=== PATIENT | male | born 1975 ===

== ENCOUNTER 2017-08-03 11:57 | Emergency (ER) | payer OTHER ==
--- NOTE | 2017-08-03 12:37 | ED PDOC ---
Arrival/HPI - General Chief Complaint: Abnormal Skin Integrity Time Seen by Provider: 08/03/17 12:01 Historian: Patient, Spouse - History of Present Illness Time/Duration: Other (2 days) Symptom Onset: Gradual Symptom Course: Worsening Severity Level: Moderate Activities at Onset: Rest Associated Symptoms (Text): 08/03/17 12:34 Patient complains of a 2 day history of a left medial buttocks abscess and 2 smaller right buttocks abscesses. No fever or chills. The larger left buttocks abscess is not ready for incision and drainage. I instructed the patient to do warm sitz bath's we will treat him with antibiotics and pain medicine and he will return to the emergency Department in 2 days to see if the abscess has ripened and then is ready for incision and drainage. Past Medical History - Psychiatric Hx Substance Use: No - Surgical History Other/Comment: Left leg vascular Sx Family/Social History - Physician Review Nursing Documentation Reviewed: Yes Family/Social History: Unknown Family HX Smoking Status: Current Some Days Smoker Hx Alcohol Use: No Hx Substance Use: No Allergies/Home Meds Allergies/Adverse Reactions: Allergies aspirin Allergy (Verified 08/03/17 12:24) ANAPHYLAXIS peanut Allergy (Verified 08/03/17 12:24) ANAPHYLAXIS Review of Systems - Physician Review All systems were reviewed & negative as marked: Yes Physical Exam Vital Signs Temp Pulse Resp BP Pulse Ox 08/03/17 13:03 98.6 F 72 29 H 129/79 99 08/03/17 12:22 97.8 F 77 18 119/67 97 Temperature: Afebrile Blood Pressure: Normal Pulse: Regular Respiratory Rate: Normal Appearance: Positive for: Well-Appearing, Non-Toxic, Comfortable, Uncomfortable Pain Distress: Mild Mental Status: Positive for: Alert and Oriented X 3 - Systems Exam Lower Extremity: Present: Normal Inspection. No: Edema Skin: Present: Warm, Dry, Normal Color, Abscess (Large left medial buttocks abscess not ready for incision and drainage. 2 small right buttocks abscesses.) . No: Rashes Disposition/Present on Arrival - Present on Arrival Any Indicators Present on Arrival: No History of DVT/PE: No History of Uncontrolled Diabetes: No Urinary Catheter: No History of Decub. Ulcer: No History Surgical Site Infection Following: None - Disposition Have Diagnosis and Disposition been Completed?: Yes Diagnosis: Cutaneous abscess of buttock Disposition: HOME/ ROUTINE Disposition Time: 12:37 Patient Plan: Discharge Condition: GOOD Discharge Instructions (ExitCare): Boil Additional Instructions: Sitz baths. Return to the emergency Department in 2 days for possible incision and drainage. Prescriptions: Amoxicillin/Clavulanate [Augmentin 875 MG-125 MG] 1 tab PO Q12 #20 tab Sulfamethoxazole/Trimethoprim [Bactrim DS 800 mg-160 mg] 1 tab PO BID #20 tab oxyCODONE/Acetaminophen [Percocet 5/325 mg Tab] 1 ea PO Q6 #15 tab Forms: [facility] (Congolese), WORK NOTE
[2017-08-03 13:04] VITALS: BP 129/79; PULSE 72; RESP 29; TEMP 98.6; O2SAT 99
== END 2017-08-03 13:03 | disposition home or self-care (01) ==
LOC: ED 11:57 → MERGE 11:57 → ED 13:03
DX: L02.31 Cutaneous abscess of buttock (principal)

== ENCOUNTER 2017-09-09 13:21 | Emergency (ER) | payer OTHER ==
[2017-09-09 13:36] VITALS: RESP 18; TEMP 98.7
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
[2017-09-09 17:23] VITALS: BP 132/78; PULSE 78; O2SAT 98
== END 2017-09-09 17:23 | disposition home or self-care (01) ==
LOC: ED 13:21
DX: S00.93XA Contusion of unspecified part of head, initial encounter (principal); S80.00XA Contusion of unspecified knee, initial encounter; V49.9XXA Car occupant (driver) (passenger) injured in unspecified traffic accident, initial encounter; F17.210 Nicotine dependence, cigarettes, uncomplicated

== ENCOUNTER 2017-10-11 23:01 | Emergency (ER) | payer OTHER ==
[2017-10-11 23:07] VITALS: BMI 35.6
[2017-10-11 23:28] VITALS: PULSE 72; RESP 16; O2SAT 98
--- NOTE | 2017-10-11 23:35 | ED PDOC ---
Arrival/HPI - General Chief Complaint: Chest Pain Time Seen by Provider: 10/11/17 23:26 Historian: Patient - History of Present Illness Narrative History of Present Illness (Text): 10/11/17 23:30 A 42 year old male, whose past medical history includes bipolar type 1, presents to the emergency department complaining of chest pain, diaphoresis, shortness of breath and multiple areas of macules in various stages of healing on right hip. Patient reports he has episodes when he is angry or anxhoius and is experiencing dizzyness and fatigue. Patient notes he is no longer seeing a psychiatrist and has stoppped taking any medications. Patient denies any fever, chills, nausea, vomiting, diarrhea, urinary symptoms, back pain, neck pain, headache, or any other complaints. PMD: Dr. Heart Time/Duration: Other (2 days ) Symptom Onset: Gradual Symptom Course: Unchanged Context: Home Past Medical History - Provider Review Nursing Documentation Reviewed: Yes - Cardiac Hx Cardiac Disorders: Yes Hx Hypertension: No - Pulmonary Hx Tuberculosis: No - Neurological Hx Seizures: No - Renal Hx Renal Disorder: No - Endocrine/Metabolic Hx Endocrine Disorders: No - Hematological/Oncological Hx Cancer: No - Integumentary Hx Dermatological Disorder: No - Musculoskeletal/Rheumatological Hx Falls: No - Genitourinary/Gynecological Hx Sexually Transmitted Diseases: No - Psychiatric Hx Bipolar Disorder: Yes Hx Depression: Yes Hx Substance Use: Yes (opioids) - Surgical History Other/Comment: 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 ago - Anesthesia Hx Anesthesia: Yes Hx Anesthesia Reactions: No Family/Social History - Physician Review Nursing Documentation Reviewed: Yes Family/Social History: Unknown Family HX Smoking Status: Light Smoker < 10 Cigarettes Daily Hx Alcohol Use: No Hx Substance Use: Yes (opioids) Substance used: heroin Allergies/Home Meds Allergies/Adverse Reactions: Allergies egg Allergy (Verified 10/11/17 23:08) RASH peanut Allergy (Verified 10/11/17 23:08) RASH Review of Systems - Physician Review All systems were reviewed & negative as marked: Yes - Review of Systems Constitutional: Fatigue. absent: Fevers, Night Sweats Respiratory: SOB Cardiovascular: Chest Pain Gastrointestinal: absent: Diarrhea, Nausea, Vomiting Genitourinary Male: absent: Urinary Output Changes Musculoskeletal: absent: Back Pain, Neck Pain Skin: Other (macules in various stages of healing on right hip) Neurological: absent: Headache, Dizziness Endocrine: Diaphoresis Physical Exam Vital Signs Reviewed: Yes Vital Signs Temp Pulse Resp BP Pulse Ox 10/11/17 23:28 98.2 F 72 16 139/78 98 Temperature: Afebrile Blood Pressure: Normal Pulse: Regular Respiratory Rate: Normal Appearance: Positive for: Well-Appearing, Non-Toxic, Comfortable Pain Distress: None Mental Status: Positive for: Alert and Oriented X 3 - Systems Exam Head: Present: Atraumatic, Normocephalic Pupils: Present: PERRL Extroacular Muscles: Present: EOMI Conjunctiva: Present: Normal Mouth: Present: Moist Mucous Membranes Neck: Present: Normal Range of Motion Respiratory/Chest: Present: Clear to Auscultation, Good Air Exchange. No: Respiratory Distress, Accessory Muscle Use Cardiovascular: Present: Regular Rate and Rhythm, Normal S1, S2. No: Murmurs Abdomen: No: Tenderness, Distention, Peritoneal Signs Back: Present: Normal Inspection Upper Extremity: Present: Normal Inspection. No: Cyanosis, Edema Lower Extremity: Present: NORMAL PULSES, Normal ROM, Other (multiple areas of macules in various stages of healing on right hip). No: Normal Inspection, Edema, CALF TENDERNESS, Cyanosis, Kat's Sign, Tenderness, Erythema, Deformity , Temperature Abnormalties, Neurovascularly Intact, Capillary Refill < 2 s Neurological: Present: GCS=15, CN II-XII Intact, Speech Normal Skin: Present: Warm, Dry, Normal Color. No: Rashes Psychiatric: Present: Alert, Oriented x 3, Normal Insight, Normal Concentration Medical Decision Making ED Course and Treatment: 10/11/17 23:39 Impression: 42 year old male presenting to the Emergency department complaining of chest pain, diaphoresis, shortness of breath and multiple areas of macules on right hip. Plan: -- Labs -- EKG -- CBC -- D DIMER -- Erythrocyte Sedimentation rate -- COAG -- Chest X-ray -- Reassess and disposition Prior Visits: Notes and results from previous visits were reviewed. Progress Notes: 10/11/17 23:35 EKG reviewed by Medical Student, says it is normal - Lab Interpretations Lab Results: 10/11/17 23:45 10/11/17 23:45 Lab Results 10/11/17 23:45: C-React Prot High Sens Pending, Alcohol, Quantitative < 10 10/11/17 23:45: Sodium 143, Potassium 3.9, Chloride 105, Carbon Dioxide 29, Anion Gap 13, BUN 14, Creatinine 1.1, Est GFR ( Amer) > 60, Est GFR (Non- Af Amer) > 60, Random Glucose 134 H, Calcium 8.9, Total Bilirubin 0.4, Direct Bilirubin 0.2, AST 55, ALT 79 H, Alkaline Phosphatase 81, Lactate Dehydrogenase 484, Total Creatine Kinase 140, Troponin I < 0.01, NT-Pro-B Natriuret Pep 32.6, Total Protein 7.3, Albumin 3.8, Globulin 3.5, Albumin/Globulin Ratio 1.1 10/11/17 23:45: PT 12.0, INR 1.05, D-Dimer, Quantitative 524 H 10/11/17 23:45: WBC 8.1, RBC 4.79, Hgb 14.1, Hct 40.6 L, MCV 84.8, MCH 29.4, MCHC 34.7, RDW 13.1, Plt Count 214, MPV 9.4, Gran % 65.1, Lymph % (Auto) 24.9, [place] % (Auto) 7.9 H, Eos % (Auto) 2.0, Baso % (Auto) 0.1, Gran # 5.25, Lymph # ( Auto) 2.0, [place] # (Auto) 0.6, Eos # (Auto) 0.2, Baso # (Auto) 0.01, ESR Pending - RAD Interpretation Radiology Orders: 10/11/17 23:26 CHEST PORTABLE [RAD] Stat - Medication Orders Current Medication Orders: Discontinued Medications Clindamycin HCl (Cleocin) 300 mg PO STAT STA PRN Reason: Protocol Stop: 10/12/17 00:40 Last Admin: 10/12/17 00:57 Dose: 300 mg - Bertramibpatrick Statement The provider has reviewed the documentation as recorded by the Stacey Mcclain All medical record entries made by the Stacey were at my direction and personally dictated by me. I have reviewed the chart and agree that the record accurately reflects my personal performance of the history, physical exam, medical decision making, and the department course for this patient. I have also personally directed, reviewed, and agree with the discharge instructions and disposition. Disposition/Present on Arrival - Present on Arrival Any Indicators Present on Arrival: No History of DVT/PE: No History of Uncontrolled Diabetes: No Urinary Catheter: No History of Decub. Ulcer: No History Surgical Site Infection Following: None - Disposition Have Diagnosis and Disposition been Completed?: Yes Diagnosis: Substance abuse, Depression (emotion), Anxiety, Cellulitis Disposition: HOME/ ROUTINE Disposition Time: 00:46 Patient Plan: Discharge Patient Problems: Current Active Problems Problem Status Onset Substance abuse Acute Depression (emotion) Acute Anxiety Acute Cellulitis Acute Condition: GOOD Discharge Instructions (ExitCare): Cellulitis and Erysipelas (Skin Infections) , Depression, Adult (DC), Anxiety, Adult (DC), Drug Abuse and Drug Addiction (DC ), Cellulitis (ED) Additional Instructions: Dennis- You need to take better care of yourself. Stay away from the drugs and start seeing your psychiatrist again. Francois- Dr. Lopez Mera Prescriptions: Clindamycin [Cleocin] 300 mg PO QID #40 cap Forms: [employer] (Korean)
[2017-10-12 00:04] LABS: BASO # 0.01 K/mm3 (0.0-2.0); BASO % 0.1 % (0.0-3.0); EOS # 0.2 (0.0-0.7); GRAN # 5.25 (1.4-6.5); GRAN % 65.1 % (50.0-68.0); HEMOGLOBIN 14.1 g/dL (14.0-18.0); LYMPH % 24.9 % (22.0-35.0); MEAN CELL VOLUME 84.8 fl (80.0-105.0); MEAN CORPUSCULAR HEMOGLOBIN 29.4 pg (25.0-35.0); MEAN CORPUSCULAR HGB CONC 34.7 g/dl (31.0-37.0); MEAN PLATELET VOLUME 9.4 fl (7.0-11.0); MONO # 0.6 (0.1-0.6); MONO % 7.9 % (1.0-6.0); RBC 4.79 10^6/uL (3.5-6.1); RED CELL DISTRIBUTION WIDTH 13.1 % (11.5-14.5); WHITE BLOOD COUNT 8.1 10^3/ul (4.5-11.0)
[2017-10-12 00:15] LABS: ALB/GLOB RATIO 1.1 (1.1-1.8); ALBUMIN 3.8 g/dL (3.0-4.8); ALT/SGPT 79 U/L (7-56); AST/SGOT 55 U/L (17-59); BILIRUBIN,DIRECT 0.2 mg/dL (0.0-0.4); BLOOD UREA NITROGEN 14 mg/dL (7-21); CALCIUM 8.9 mg/dL (8.4-10.5); GFR AFRICAN-AMERICAN > 60; GFR NON-AFRICAN AMERICAN > 60
[2017-10-12 00:26] LABS: B-TYPE NATRIURETIC PEPTIDE 32.6 pg/mL (0-450); TROPONIN I < 0.01 ng/mL
[2017-10-12 00:54] LABS: INR 1.05
[2017-10-12 01:36] VITALS: BP 132/68; TEMP 98.7
--- NOTE | 2017-10-12 08:53 | CARD ---
APPROVED REPORT Date of service: 10/11/2017 EKG Measurement Heart [id number] <Conclusion> Normal sinus rhythm Normal ECG
== END 2017-10-12 01:00 | disposition home or self-care (01) ==
LOC: ED 23:01
DX: F19.10 Other psychoactive substance abuse, uncomplicated (principal); F32.9 Major depressive disorder, single episode, unspecified; F41.9 Anxiety disorder, unspecified; L03.818 Cellulitis of other sites

== ENCOUNTER 2018-02-10 21:56 | Inpatient (IN) | payer OTHER ==
--- NOTE | 2018-02-10 23:00 | ED PDOC ---
Arrival/HPI - General Time Seen by Provider: 02/10/18 22:01 Historian: Patient, Spouse - History of Present Illness Narrative History of Present Illness (Text): 02/10/18 22:56 43 year old male, whose past medical history includes bipolar type 1, presents to the emergency department with abdominal pain and vomiting, for 2 days. Patient informs pain is located in the RLQ and radiates to the right lower back. Patient states he has been unable to eat for 2 days, and has vomited many times. Patient informs of subjective fever, and constipation with no bowel movement for 2 days. Patient denies any sick contact. Patient denies any dysuria, headache, dizziness, chest pain, shortness of breath, cough, or any other complaint. Time/Duration: < week (2 days) Symptom Course: Unchanged Past Medical History - Provider Review Nursing Documentation Reviewed: Yes - Cardiac Hx Cardiac Disorders: Yes Hx Hypertension: No - Pulmonary Hx Tuberculosis: No - Neurological Hx Seizures: No - Renal Hx Renal Disorder: No - Endocrine/Metabolic Hx Endocrine Disorders: No - Hematological/Oncological Hx Cancer: No - Integumentary Hx Dermatological Disorder: No - Musculoskeletal/Rheumatological Hx Falls: No - Genitourinary/Gynecological Hx Sexually Transmitted Diseases: No - Psychiatric Hx Bipolar Disorder: Yes Hx Depression: Yes Hx Substance Use: Yes (opioids) - Surgical History Other/Comment: 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 ago - Anesthesia Hx Anesthesia: Yes Hx Anesthesia Reactions: No Family/Social History - Physician Review Nursing Documentation Reviewed: Yes Family/Social History: No Known Family HX Smoking Status: Light Smoker < 10 Cigarettes Daily Hx Alcohol Use: No Hx Substance Use: Yes (opioids) Substance used: heroin Allergies/Home Meds Allergies/Adverse Reactions: Allergies egg Allergy (Verified 10/11/17 23:08) RASH peanut Allergy (Verified 10/11/17 23:08) RASH Home Medications: Home Meds Medication Instructions Recorded Confirmed RX: No Known Home Med 02/11/18 02/11/18 Review of Systems - Physician Review All systems were reviewed & negative as marked: Yes - Review of Systems Constitutional: Fevers Respiratory: absent: SOB, Cough Cardiovascular: absent: Chest Pain Gastrointestinal: Abdominal Pain, Constipation, Vomiting, Appetite Changes Genitourinary Male: absent: Dysuria Neurological: absent: Headache, Dizziness Physical Exam - Systems Exam Head: Present: Atraumatic, Normocephalic Pupils: Present: PERRL Extroacular Muscles: Present: EOMI Conjunctiva: Present: Normal Mouth: Present: Moist Mucous Membranes Neck: Present: Normal Range of Motion Respiratory/Chest: Present: Clear to Auscultation, Good Air Exchange. No: Respiratory Distress, Accessory Muscle Use Cardiovascular: Present: Regular Rate and Rhythm, Normal S1, S2. No: Murmurs Abdomen: Present: Tenderness (RLQ and suprapubic abd tender to palpation). No: Distention, Peritoneal Signs, Rebound, Guarding Back: Present: Normal Inspection Upper Extremity: Present: Normal Inspection. No: Cyanosis, Edema Lower Extremity: Present: Normal Inspection. No: Edema Neurological: Present: Speech Normal Skin: Present: Warm, Dry, Normal Color. No: Rashes Psychiatric: Present: Alert, Oriented x 3, Normal Insight, Normal Concentration Medical Decision Making ED Course and Treatment: 02/10/18 23:24 Impression: 43 year old male presents with RLQ pain and vomiting Plan: -- Labs -- CT ABD & Pelvis -- Maalox -- Elixir -- Pepcid -- Toradol -- Zofran -- Urinalysis -- Urinalysis -- Reassess and disposition Prior Visits: Notes and results from previous visits were reviewed. Progress Notes: 02/11/18 02:35 CT showed evidence of cholecystitis. Called surgical garment inspector who recommends follow up using abdominal US. 02/11/18 04:[address] findings Spoke with Dr. Le(house staff)who accepts admission. Surgical team will be following up with case. - RAD Interpretation Narrative RAD Interpretations (Text): 02/11/18 02:06 CT Abdomen and Pelvis with IV contrast CLINICAL HISTORY: Abdominal pain TECHNIQUE: Axial computed tomography images of the abdomen and pelvis with intravenous contrast. CONTRAST: With intravenous contrast. COMPARISON: None provided. FINDINGS: LUNG BASES: The lung bases appear clear. No pleural effusions are seen. LIVER: Unremarkable. GALLBLADDER AND BILE DUCTS: Gallbladder wall thickening with trace pericholecystic fluid, cholecystitis is suspected. Follow up with US and/or hepatobiliary scan is recommended. PANCREAS: Unremarkable. SPLEEN: Unremarkable. ADRENAL GLANDS: Unremarkable. KIDNEYS, URETERS, AND BLADDER: The kidneys appear within normal limits. There is no hydronephrosis or hydroureter. No urinary calculi are seen. STOMACH AND BOWEL: Thick walled fluid filled duodenum and loops of jejunum compatible with enteritis. Infectious and inflammatory etiologies are considered. APPENDIX: No evidence of acute appendicitis on CT examination. PERITONEUM: No free fluid. No free air. LYMPH NODES: No lymphadenopathy is evident. REPRODUCTIVE: Unremarkable as visualized. VASCULATURE: No evidence of abdominal aortic aneurysm. BONES: No aggressive appearing osseous lesion. No acute osseous pathology evident. MISCELLANEOUS: Small amount of fluid in the pelvis. IMPRESSION: 1. Thick walled fluid filled duodenum and loops of jejunum compatible with enteritis. Infectious and inflammatory etiologies are considered. 2. Gallbladder wall thickening with trace pericholecystic fluid, cholecystitis is suspected. Follow up with US and/or hepatobiliary scan is recommended. 3. Small amount of fluid in the pelvis. 02/11/18 05:45 Ultrasound abdomen, complete. Indication: Abdominal pain. Technique: Real-time ultrasound images were obtained. Findings: The liver is enlarged measuring 19.8 cm. Increased hepatic echogenicity suggestive of fat hepatic steatosis. Distended gallbladder diffuse thickening of its wall measuring 3.3 mm. Negative sonographic Lemon. Impacted gallstones in the neck of the gallbladder. Minimal amount of pericholecystic fluid. Limited visualization of the pancreas secondary to gaseous bowel distention. Unremarkable aorta. Unremarkable head CT. No evidence of abdominal aortic aneurysm. Unremarkable right kidney measuring 12x4.7x5 cm. Unremarkable left kidney measuring 12.3x5.7x5.2 cm. Mildly enlarged spleen measuring 15x6.6x4.5 cm. Nondilated common bile duct measuring 1.3 mm. Impression: Cholelithiasis. Developing acute cholecystitis. Surgical consultation is recommended Non Profit Director: Radiologist - Scribe Statement The provider has reviewed the documentation as recorded by the Stacey Aguero Provider Scribe Attestation: All medical record entries made by the Bertramibpatrick were at my direction and personally dictated by me. I have reviewed the chart and agree that the record accurately reflects my personal performance of the history, physical exam, medical decision making, and the department course for this patient. I have also personally directed, reviewed, and agree with the discharge instructions and disposition. Disposition/Present on Arrival - Present on Arrival Any Indicators Present on Arrival: No History of DVT/PE: No History of Uncontrolled Diabetes: No Urinary Catheter: No History Surgical Site Infection Following: None - Disposition Have Diagnosis and Disposition been Completed?: Yes Diagnosis: Cholecystitis Disposition: HOSPITALIZED Disposition Time: 04:59 Patient Plan: Admission Condition: GUARDED
[2018-02-10 23:09] VITALS: BMI 31.6
[2018-02-10] MEDS ORDERED: Alum-Mag Hydrox-Simethicone Susp (30 mL) PO STA (23:11)
[2018-02-10] MEDS ORDERED: Atrop/Hyosc/Scopal/PB Elixir (120 ml) PO STA (23:11)
[2018-02-10 23:53] LABS: BASO # 0.01 K/mm3 (0.0-2.0); BASO % 0.1 % (0.0-3.0); EOS # 0.1 (0.0-0.7); EOS % 0.6 % (1.5-5.0); GRAN # 11.25 (1.4-6.5); GRAN % 75.6 % (50.0-68.0); LYMPH # 2.2 (1.2-3.4); LYMPH % 14.6 % (22.0-35.0); MEAN CELL VOLUME 85.6 fl (80.0-105.0); MONO # 1.4 (0.1-0.6); MONO % 9.1 % (1.0-6.0); RBC 5.5 10^6/uL (3.5-6.1); RED CELL DISTRIBUTION WIDTH 13.1 % (11.5-14.5); WHITE BLOOD COUNT 14.9 10^3/uL (4.5-11.0)
[2018-02-10 23:55] LABS: VENOUS BLOOD GAS BASE EXCESS 4.8 mmol/L (0.0-2.0); VENOUS BLOOD GAS PO2 39 mm/Hg (30-55); VENOUS BLOOD PH 7.41 (7.32-7.43)
[2018-02-10 23:55] LABS: PH,URINE 7.5 (4.7-8.0); URINE BILIRUBIN NEGATIVE (NEGATIVE); URINE BLOOD NEGATIVE (NEGATIVE); URINE GLUCOSE (UA) NEGATIVE (NEGATIVE); URINE LEUKOCYTE ESTERASE NEGATIVE Leu/uL (NEGATIVE); URINE PROTEIN 30 mg/dL (<30 mg/dL)
[2018-02-10 23:57] LABS: ALBUMIN 4.5 g/dL (3.0-4.8); ALT/SGPT 101 U/L (7-56); AST/SGOT 66 U/L (17-59); BLOOD UREA NITROGEN 10 mg/dL (7-21); CALCIUM 9.6 mg/dL (8.4-10.5); GFR NON-AFRICAN AMERICAN > 60; LIPASE 35 U/L (23-300)
[2018-02-10 23:59] LABS: HEMOGLOBIN 16.5 g/dL (14.0-18.0)
[2018-02-10 23:59] LABS: URINE COLOR YELLOW (YELLOW)
[2018-02-11] LABS: URINE APPEARANCE CLEAR (CLEAR)
[2018-02-11] MEDS ORDERED: Iohexol 350 MG/100 ML VIAL ONE (00:09)
[2018-02-11] MEDS ORDERED: Ciprofloxacin 400mg/200ml D5W 400 MG/200 ML BAG IVPB STA (00:33)
[2018-02-11] MEDS ORDERED: metroNIDAZOLE IV 500 mg/100 ml 500 MG/100 ML BAG IVPB STA (00:34)
[2018-02-11 00:36] LABS: URINE AMORPHOUS SEDIMENT SMALL; URINE EPITHELIAL CELLS 0 - 2 /hpf (0-5); URINE RBC 0 - 2 /hpf (0-2); URINE WBC 0 - 2 /hpf (0-6)
[2018-02-11] MEDS ORDERED: Morphine 4 mg/ml ISec IVP STA (01:05)
[2018-02-11 01:08] LABS: BARBITURATES, UR NEGATIVE (NEGATIVE); BENZODIAZEPINES, UR NEGATIVE (NEGATIVE); OPIATES, UR POSITIVE (NEGATIVE); PHENCYCLIDINE, UR NEGATIVE (NEGATIVE)
[2018-02-11] MEDS: Sodium Chloride 0.9% 1,000 ML IV SCH ×3 (03:16→20:51)
--- NOTE | 2018-02-11 03:46 | CP.PCM.CON ---
<Roxanne Ruiz - Last Filed: 02/11/18 07:49> History of Present Illness - History of Present Illness History of Present Illness: General Surgery Consult note for Dr. Mcmanus Consulted for Acute Cholecystitis Patient is a 43 yr old male with PMH Bipolar and DVT left lower leg who presents with 2 days of RUQ and RLQ abdominal pain radiating to the back associated with F/c, N/v x6, and anorexia. Patient states his last meal was fatty but the pain has continued over the past 2 days despite not having eaten. Last BM two days ago, diarrhea. Patient otherwise denies CORNEJO, CP, SOB and extremity pain. PMH: Bipolar disorder, LLE DVT PSH: thrombectomy for DVT LLE All: Egg, peanut, ASA Social: smoker 1ppd, heroin abuse last use yesterday 10 am, cocaine abuse last use yesterday 10 am, denies ETOH Review of Systems - Review of Systems All systems: reviewed and no additional remarkable complaints except (as per HPI) Past Patient History - Past Medical History & Family History Past Medical History?: No - Past Social History Smoking Status: Light Smoker < 10 Cigarettes Daily - CARDIAC Hx Cardiac Disorders: Yes Hx Hypertension: No - PULMONARY Hx Tuberculosis: No - NEUROLOGICAL Hx Seizures: No - RENAL Hx Chronic Kidney Disease: No - ENDOCRINE/METABOLIC Hx Endocrine Disorders: No - HEMATOLOGICAL/ONCOLOGICAL Hx Cancer: No - INTEGUMENTARY Hx Dermatological Problems: No - MUSCULOSKELETAL/RHEUMATOLOGICAL Hx Falls: No - GENITOURINARY/GYNECOLOGICAL Hx Sexually Transmitted Disorders: No - PSYCHIATRIC Hx Bipolar Disorder: Yes Hx Depression: Yes Hx Substance Use: Yes (opioids) - SURGICAL HISTORY Other/Comment: 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 ago - ANESTHESIA Hx Anesthesia: Yes Hx Anesthesia Reactions: No Meds Allergies/Adverse Reactions: Allergies Allergy/AdvReac Type Severity Reaction Status Date / Time egg Allergy RASH Verified 10/11/17 23:08 peanut Allergy RASH Verified 10/11/17 23:08 - Medications Medications: Current Medications Sodium Chloride (Sodium Chloride 0.9%) 1,000 mls @ 150 mls/hr IV .[id number] SHEILA Morphine Sulfate (Morphine) 2 mg IVP Q4H PRN PRN Reason: Pain, severe (8-10) Physical Exam - Constitutional Appears: Well, Non-toxic, No Acute Distress - Head Exam Head Exam: ATRAUMATIC, NORMOCEPHALIC - Eye Exam Eye Exam: EOMI - ENT Exam ENT Exam: Mucous Membranes Moist - Respiratory Exam Respiratory Exam: NORMAL BREATHING PATTERN - Cardiovascular Exam Cardiovascular Exam: REGULAR RHYTHM - GI/Abdominal Exam GI & Abdominal Exam: Guarding (RUQ, RLQ), Soft, Tenderness (RUQ, RLQ). absent: Distended Additional comments: Lemon's positive - Extremities Exam Extremities exam: Positive for: pedal pulses present. Negative for: calf tenderness, pedal edema - Neurological Exam Neurological exam: Alert, Oriented x3 - Psychiatric Exam Psychiatric exam: Normal Affect, Normal Mood - Skin Skin Exam: Dry, Intact, Normal Color, Warm Results - Vital Signs Recent Vital Signs: Last Vital Signs Temp 98.1 F 02/11/18 02:54 Pulse 77 02/11/18 02:54 Resp 18 02/11/18 02:54 BP 126/61 02/11/18 02:54 Pulse Ox 97 02/11/18 02:54 - Labs Result Diagrams: 02/11/18 07:30 02/10/18 23:30 Labs: Laboratory Results - last 24 hr 02/10/18 02/10/18 02/10/18 23:30 23:30 23:30 WBC 14.9 H RBC 5.50 Hgb 16.5 D Hct 47.1 MCV 85.6 MCH 30.0 MCHC 35.0 RDW 13.1 Plt Count 234 MPV 10.0 Gran % 75.6 H Lymph % (Auto) 14.6 L Walton % (Auto) 9.1 H Eos % (Auto) 0.6 L Baso % (Auto) 0.1 Gran # 11.25 H Lymph # (Auto) 2.2 Walton # (Auto) 1.4 H Eos # (Auto) 0.1 Baso # (Auto) 0.01 pO2 39 VBG pH 7.41 VBG pCO2 48.0 VBG HCO3 30.4 H VBG Total CO2 31.9 H VBG O2 Sat (Calc) 81.3 H VBG Base Excess 4.8 H VBG Potassium 3.7 Sodium 139.0 138 Chloride 100.0 102 Glucose 126 H Lactate 1.8 FiO2 21.0 Potassium 3.9 Carbon Dioxide 28 Anion Gap 11 BUN 10 Creatinine 0.8 Est GFR ( Amer) > 60 Est GFR (Non-Af Amer) > 60 Random Glucose 126 H Calcium 9.6 Magnesium 2.1 Total Bilirubin 1.0 AST 66 H ALT 101 H Alkaline Phosphatase 112 Total Protein 9.0 H Albumin 4.5 Globulin 4.5 Albumin/Globulin Ratio 1.0 L Lipase 35 Venous Blood Potassium 3.7 Urine Color Urine Appearance Urine pH Ur Specific [place] Urine Protein Urine Glucose (UA) Urine Ketones Urine Blood Urine Nitrate Urine Bilirubin Urine Urobilinogen Ur Leukocyte Esterase Urine RBC Urine WBC Ur Epithelial Cells Amorphous Sediment Urine Bacteria Urine Opiates Screen Urine Methadone Screen Ur Barbiturates Screen Ur Phencyclidine Scrn Ur Amphetamines Screen U Benzodiazepines Scrn U Oth Cocaine Metabols U Cannabinoids Screen 02/10/18 02/10/18 23:43 23:43 WBC RBC Hgb Hct MCV MCH MCHC RDW Plt Count MPV Gran % Lymph % (Auto) Walton % (Auto) Eos % (Auto) Baso % (Auto) Gran # Lymph # (Auto) Walton # (Auto) Eos # (Auto) Baso # (Auto) pO2 VBG pH VBG pCO2 VBG HCO3 VBG Total CO2 VBG O2 Sat (Calc) VBG Base Excess VBG Potassium Sodium Chloride Glucose Lactate FiO2 Potassium Carbon Dioxide Anion Gap BUN Creatinine Est GFR ( Amer) Est GFR (Non-Af Amer) Random Glucose Calcium Magnesium Total Bilirubin AST ALT Alkaline Phosphatase Total Protein Albumin Globulin Albumin/Globulin Ratio Lipase Venous Blood Potassium Urine Color Yellow Urine Appearance Clear Urine pH 7.5 Ur Specific [place] 1.020 Urine Protein 30 H Urine Glucose (UA) Negative Urine Ketones 15 H Urine Blood Negative Urine Nitrate Negative Urine Bilirubin Negative Urine Urobilinogen 1.0 H Ur Leukocyte Esterase Negative Urine RBC 0 - 2 Urine WBC 0 - 2 Ur Epithelial Cells 0 - 2 Amorphous Sediment Small Urine Bacteria None Urine Opiates Screen Positive H Urine Methadone Screen Negative Ur Barbiturates Screen Negative Ur Phencyclidine Scrn Negative Ur Amphetamines Screen Negative U Benzodiazepines Scrn Negative U Oth Cocaine Metabols Positive H U Cannabinoids Screen Negative Assessment & Plan - Assessment and Plan (Free Text) Assessment: 43 yr old male with Acute cholecystitis Plan: NPO IVF Abx Pain control Zofran obtain preop EKG and CXR please document medical clearance for surgery will obtain repeat UDS 02/[address] Marietta Ruiz, PGY 1 - Date & Time Date: 02/11/18 Time: 03:00 <Sea Mcmanus - Last Filed: 02/16/18 22:29> Meds - Medications Medications: Current Medications Acetaminophen (Tylenol 325mg Tab) 975 mg PO Q8 ON LICENSE OF [facility] Last Admin: 02/16/18 21:00 Dose: 975 mg Clonidine HCl (Catapres) 0.1 mg PO BID ON LICENSE OF [facility] Last Admin: 02/16/18 18:34 Dose: 0.1 mg Enoxaparin Sodium (Lovenox) 40 mg SC DAILY ON LICENSE OF [facility]; Protocol Last Admin: 02/16/18 11:09 Dose: 40 mg Gabapentin (Neurontin) 100 mg PO TID ON LICENSE OF [facility]; Protocol Last Admin: 02/16/18 18:35 Dose: 100 mg Piperacillin Sod/Tazobactam Sod (Zosyn 3.375 In Ns 100ml) 100 mls @ 25 mls/hr IVPB Q12 ON LICENSE OF [facility]; Protocol Stop: 02/22/18 22:01 Last Admin: 02/16/18 21:08 Dose: 25 mls/hr Lactated Ringer's (Lactated Ringer's) 1,000 mls @ 60 mls/hr IV .[id number] ON LICENSE OF [facility] Last Admin: 02/15/18 22:59 Dose: 60 mls/hr Ketorolac Tromethamine (Toradol) 30 mg IVP Q6H ON LICENSE OF [facility] Last Admin: 02/16/18 21:05 Dose: 30 mg Methadone HCl (Methadone) 5 mg PO Q8H ON LICENSE OF [facility] Last Admin: 02/16/18 16:00 Dose: Not Given Metoclopramide HCl (Reglan) 10 mg IV ONCE PRN PRN Reason: Nausea/Vomiting Nicotine (Nicoderm Cq) 1 patch TD DAILY ON LICENSE OF [facility] Last Admin: 02/16/18 11:19 Dose: 1 patch Ondansetron HCl (Zofran Inj) 4 mg IVP Q6H PRN PRN Reason: Nausea/Vomiting Pantoprazole Sodium (Protonix Inj) 40 mg IVP DAILY ON LICENSE OF [facility] Last Admin: 02/16/18 11:08 Dose: 40 mg Results - Vital Signs Recent Vital Signs: Last Vital Signs Temp 98.8 F 02/16/18 10:49 Pulse 81 02/16/18 18:34 Resp 18 02/16/18 10:49 BP 122/73 02/16/18 18:34 Pulse Ox 97 12/16/18 10:49 - Labs Result Diagrams: 02/16/18 09:20 02/16/18 09:20 Labs: Laboratory Results - last 24 hr 02/16/18 02/16/18 09:20 09:20 WBC 12.6 H RBC 4.71 Hgb 13.9 L Hct 40.7 L MCV 86.4 MCH 29.5 MCHC 34.2 RDW 13.1 Plt Count 198 MPV 10.0 Gran % 84.4 H Lymph % (Auto) 8.1 L Walton % (Auto) 6.9 H Eos % (Auto) 0.5 L Baso % (Auto) 0.1 Gran # 10.60 H Lymph # (Auto) 1.0 L Walton # (Auto) 0.9 H Eos # (Auto) 0.1 Baso # (Auto) 0.01 Sodium 139 Potassium 3.6 Chloride 104 Carbon Dioxide 27 Anion Gap 11 BUN 10 Creatinine 0.8 Est GFR ( Amer) > 60 Est GFR (Non-Af Amer) > 60 Random Glucose 193 H Calcium 8.5 Total Bilirubin 0.8 AST 726 H D ALT 456 H Alkaline Phosphatase 103 Total Protein 7.1 Albumin 3.3 Globulin 3.8 Albumin/Globulin Ratio 0.9 L Attending/Attestation - Attestation I have personally seen and examined this patient.: Yes I have fully participated in the care of the patient.: Yes I have reviewed all pertinent clinical information: Yes Notes (Text): Pt was seen and examined at bedside Agree with above note and assessment Pt with IVDA, RUQ pain and Nausea Abdomen: Soft, RUQ tenderness, ND Labs and Radiology reviewed Ass: Acute Cholecystitis with Leucocytosis Plan: MRCP GI consult for possible ERCP IV antibiotics NPO, IVF c/w current mx Plan d.w pt in detail Risk and benefit explained in detail
[2018-02-11] MEDS: Morphine 2 mg/ml ISec IVP PRN ×4 (04:18→20:55)
--- NOTE | 2018-02-11 05:49 | CP.PCM.HP ---
<Karen Rosen - Last Filed: 02/11/18 05:39> History of Present Illness - History of Present Illness History of Present Illness: Karen Rosen, PGY1 Hospital H&P This is a 43 year old male with PMH of bipolar 1 disorder and DVT of the left leg presenting to the hospital for 2 day history of abdominal pain. Pain is in the RLQ and RUQ, rated 10/10, sharp, constant, radiating to the right side of the back, associated with several episodes non bloody vomiting and diarrhea and patient denies any relieving or exacerbating factors. His last BM was 2 days ago and states he has not had an appetite since that time. He denies any similar symptoms in the past. He also admits to subjective fevers at home. He denies CP, hematemesis, hematochezia, constipation, urinary complaints, cough, recent travel, sickness, trauma, lifestyle change, numbness, tingling and swelling. 12 point ROS noted here, otherwise unremarkable. PMD: none PMH: bipolar 1 disorder, DVT of left leg Meds: denies taking any medications SH: denies drug use and drinking. Smoked 1/2 ppd for 15 years Sx: left leg thrombectomy FH: denies All: eggs and peanuts Present on Admission - Present on Admission Any Indicators Present on Admission: No Past Patient History - Past Medical History & Family History Past Medical History?: No - Past Social History Smoking Status: Heavy Smoker > 10 Cigarettes Daily - CARDIAC Hx Cardiac Disorders: Yes Hx Hypertension: No - PULMONARY Hx Tuberculosis: No - NEUROLOGICAL Hx Seizures: No - RENAL Hx Chronic Kidney Disease: No - ENDOCRINE/METABOLIC Hx Endocrine Disorders: No - HEMATOLOGICAL/ONCOLOGICAL Hx Cancer: No - INTEGUMENTARY Hx Dermatological Problems: No - MUSCULOSKELETAL/RHEUMATOLOGICAL Hx Falls: No - GENITOURINARY/GYNECOLOGICAL Hx Sexually Transmitted Disorders: No - PSYCHIATRIC Hx Bipolar Disorder: Yes Hx Depression: Yes Hx Substance Use: Yes (opioids) - SURGICAL HISTORY Other/Comment: 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 ago - ANESTHESIA Hx Anesthesia: Yes Hx Anesthesia Reactions: No Meds Allergies/Adverse Reactions: Allergies Allergy/AdvReac Type Severity Reaction Status Date / Time egg Allergy RASH Verified 10/11/17 23:08 peanut Allergy RASH Verified 10/11/17 23:08 Physical Exam - Constitutional Appears: Non-toxic - Head Exam Head Exam: ATRAUMATIC, NORMAL INSPECTION - Eye Exam Eye Exam: EOMI Pupil Exam: PERRL - ENT Exam ENT Exam: Mucous Membranes Dry - Respiratory Exam Respiratory Exam: Clear to Auscultation Bilateral, NORMAL BREATHING PATTERN. absent: Accessory Muscle Use, Wheezes, Respiratory Distress - Cardiovascular Exam Cardiovascular Exam: REGULAR RHYTHM, +S1, +S2 - GI/Abdominal Exam GI & Abdominal Exam: Normal Bowel Sounds, Soft. absent: Firm, Guarding Additional comments: tenderness in the RLQ and RUQ to light palpation - Extremities Exam Extremities exam: Positive for: normal inspection, pedal pulses present. Negative for: calf tenderness, tenderness - Back Exam Back exam: NORMAL INSPECTION. absent: CVA tenderness (L), CVA tenderness (R) - Neurological Exam Neurological exam: Alert, Oriented x3 - Skin Skin Exam: Normal Color, Warm Results - Vital Signs Recent Vital Signs: Last Vital Signs Temp 98.1 F 02/11/18 02:54 Pulse 77 02/11/18 02:54 Resp 18 02/11/18 02:54 BP 126/61 02/11/18 02:54 Pulse Ox 97 02/11/18 02:54 - Labs Result Diagrams: 02/10/18 23:30 02/10/18 23:30 Labs: Laboratory Results - last 24 hr 02/10/18 02/10/18 02/10/18 23:30 23:30 23:30 WBC 14.9 H RBC 5.50 Hgb 16.5 D Hct 47.1 MCV 85.6 MCH 30.0 MCHC 35.0 RDW 13.1 Plt Count 234 MPV 10.0 Gran % 75.6 H Lymph % (Auto) 14.6 L Swain % (Auto) 9.1 H Eos % (Auto) 0.6 L Baso % (Auto) 0.1 Gran # 11.25 H Lymph # (Auto) 2.2 Swain # (Auto) 1.4 H Eos # (Auto) 0.1 Baso # (Auto) 0.01 pO2 39 VBG pH 7.41 VBG pCO2 48.0 VBG HCO3 30.4 H VBG Total CO2 31.9 H VBG O2 Sat (Calc) 81.3 H VBG Base Excess 4.8 H VBG Potassium 3.7 Sodium 139.0 138 Chloride 100.0 102 Glucose 126 H Lactate 1.8 FiO2 21.0 Potassium 3.9 Carbon Dioxide 28 Anion Gap 11 BUN 10 Creatinine 0.8 Est GFR ( Amer) > 60 Est GFR (Non-Af Amer) > 60 Random Glucose 126 H Calcium 9.6 Magnesium 2.1 Total Bilirubin 1.0 AST 66 H ALT 101 H Alkaline Phosphatase 112 Total Protein 9.0 H Albumin 4.5 Globulin 4.5 Albumin/Globulin Ratio 1.0 L Lipase 35 Venous Blood Potassium 3.7 Urine Color Urine Appearance Urine pH Ur Specific [place] Urine Protein Urine Glucose (UA) Urine Ketones Urine Blood Urine Nitrate Urine Bilirubin Urine Urobilinogen Ur Leukocyte Esterase Urine RBC Urine WBC Ur Epithelial Cells Amorphous Sediment Urine Bacteria Urine Opiates Screen Urine Methadone Screen Ur Barbiturates Screen Ur Phencyclidine Scrn Ur Amphetamines Screen U Benzodiazepines Scrn U Oth Cocaine Metabols U Cannabinoids Screen 02/10/18 02/10/18 23:43 23:43 WBC RBC Hgb Hct MCV MCH MCHC RDW Plt Count MPV Gran % Lymph % (Auto) Swain % (Auto) Eos % (Auto) Baso % (Auto) Gran # Lymph # (Auto) Swain # (Auto) Eos # (Auto) Baso # (Auto) pO2 VBG pH VBG pCO2 VBG HCO3 VBG Total CO2 VBG O2 Sat (Calc) VBG Base Excess VBG Potassium Sodium Chloride Glucose Lactate FiO2 Potassium Carbon Dioxide Anion Gap BUN Creatinine Est GFR ( Amer) Est GFR (Non-Af Amer) Random Glucose Calcium Magnesium Total Bilirubin AST ALT Alkaline Phosphatase Total Protein Albumin Globulin Albumin/Globulin Ratio Lipase Venous Blood Potassium Urine Color Yellow Urine Appearance Clear Urine pH 7.5 Ur Specific [place] 1.020 Urine Protein 30 H Urine Glucose (UA) Negative Urine Ketones 15 H Urine Blood Negative Urine Nitrate Negative Urine Bilirubin Negative Urine Urobilinogen 1.0 H Ur Leukocyte Esterase Negative Urine RBC 0 - 2 Urine WBC 0 - 2 Ur Epithelial Cells 0 - 2 Amorphous Sediment Small Urine Bacteria None Urine Opiates Screen Positive H Urine Methadone Screen Negative Ur Barbiturates Screen Negative Ur Phencyclidine Scrn Negative Ur Amphetamines Screen Negative U Benzodiazepines Scrn Negative U Oth Cocaine Metabols Positive H U Cannabinoids Screen Negative Assessment & Plan - Assessment and Plan (Free Text) Assessment: This is a 43 year old male with PMH of bipolar 1 disorder and DVT of the left leg presenting to the hospital for 2 day history of abdominal pain. Plan: Cholecystitis -CTAP showed thick walled fluid filled duodenum and loops of jejunum compatible with enteritis. Gallbladder wall thickening with trace pericholecystic fluid, cholecystitis is suspected. F/u official read -Abd US showed cholelithiasis, developing acute cholecystitis. F/u official read -afebrile, WBC of 14.9 -blood culture pending -procalc pending -NPO -cipro, flagyl day 1 -morphine prn -zofran prn -NS 150 -Gen surg on consult, Dr. Mcmanus -GI on consult, Dr. Chun Hx of Bipolar -not currently on medication Hx of DVT with left leg thrombectomy -patient unsure of exact year -not currently on anticoagulation PPX with SCD and pepcid Patient seen and case discussed with attending, Dr. Le <Laron Le - Last Filed: 02/14/18 02:06> Results - Vital Signs Recent Vital Signs: Last Vital Signs Temp 99.6 F 02/13/18 21:58 Pulse 59 L 02/13/18 21:58 Resp 18 02/13/18 21:58 BP 114/66 02/13/18 21:58 Pulse Ox 94 L 02/13/18 21:58 - Labs Result Diagrams: 02/13/18 07:00 02/13/18 07:00 Labs: Laboratory Results - last 24 hr 02/13/18 02/13/18 07:00 07:00 WBC 17.3 H RBC 4.75 Hgb 13.7 L Hct 40.0 L MCV 84.2 MCH 28.8 MCHC 34.3 RDW 13.0 Plt Count 183 MPV 10.5 Gran % 84.9 H Lymph % (Auto) 7.8 L Swain % (Auto) 7.1 H Eos % (Auto) 0.1 L Baso % (Auto) 0.1 Gran # 14.68 H Lymph # (Auto) 1.3 Swain # (Auto) 1.2 H Eos # (Auto) 0.0 Baso # (Auto) 0.01 Sodium 142 Potassium 3.4 L Chloride 111 H Carbon Dioxide 24 Anion Gap 10 BUN 13 Creatinine 0.8 Est GFR ( Amer) > 60 Est GFR (Non-Af Amer) > 60 Random Glucose 157 H Calcium 8.4 Total Bilirubin 0.9 AST 24 ALT 45 Alkaline Phosphatase 95 Total Protein 7.2 Albumin 3.4 Globulin 3.8 Albumin/Globulin Ratio 0.9 L Attending/Attestation - Attestation I have personally seen and examined this patient.: Yes I have fully participated in the care of the patient.: Yes I have reviewed all pertinent clinical information: Yes
[2018-02-11 06:33] LABS: INR 1.14; PROTHROMBIN TIME 13.1 SECONDS (9.4-12.5)
[2018-02-11 07:47] LABS: BASO # 0.01 K/mm3 (0.0-2.0); BASO % 0.1 % (0.0-3.0); EOS # 0.1 (0.0-0.7); EOS % 0.5 % (1.5-5.0); GRAN # 9.3 (1.4-6.5); GRAN % 77.5 % (50.0-68.0); HEMOGLOBIN 14.8 g/dL (14.0-18.0); LYMPH # 1.2 (1.2-3.4); MEAN CELL VOLUME 85.7 fl (80.0-105.0); MEAN CORPUSCULAR HEMOGLOBIN 29.5 pg (25.0-35.0); MEAN CORPUSCULAR HGB CONC 34.4 g/dl (31.0-37.0); MONO # 1.4 (0.1-0.6); MONO % 11.9 % (1.0-6.0); RBC 5.02 10^6/uL (3.5-6.1); RED CELL DISTRIBUTION WIDTH 13.2 % (11.5-14.5)
[2018-02-11 08:04] LABS: ALBUMIN 3.9 g/dL (3.0-4.8); ALT/SGPT 88 U/L (7-56); AST/SGOT 46 U/L (17-59); BLOOD UREA NITROGEN 11 mg/dL (7-21); CALCIUM 8.9 mg/dL (8.4-10.5); GFR NON-AFRICAN AMERICAN > 60
--- NOTE | 2018-02-11 08:38 | RAD ---
Date of service: 02/11/2018 HISTORY: preoperative clearance COMPARISON: No prior. FINDINGS: LUNGS: No active pulmonary disease. PLEURA: No significant pleural effusion identified, no pneumothorax apparent. CARDIOVASCULAR: No aortic atherosclerotic calcification present. Normal cardiac size. No pulmonary vascular congestion. OSSEOUS STRUCTURES: No significant abnormalities. VISUALIZED UPPER ABDOMEN: Normal. OTHER FINDINGS: None. IMPRESSION: No acute cardiopulmonary disease appreciated.
--- NOTE | 2018-02-11 09:07 | CARD ---
APPROVED REPORT Date of service: 02/11/2018 EKG Measurement Heart [id number] <Conclusion> Normal sinus rhythm Normal ECG
--- NOTE | 2018-02-11 09:11 | CT ---
Date of service: 02/11/2018 PROCEDURE: CT Abdomen and Pelvis with contrast HISTORY: abdominal pain COMPARISON: February 11, 2018 TECHNIQUE: Intravenous contrast dose: 150 cc Omnipaque 350. Radiation dose: Total exam DLP = 1146.36 mGy-cm. This CT exam was performed using one or more of the following dose reduction techniques: Automated exposure control, adjustment of the mA and/or kV according to patient size, and/or use of iterative reconstruction technique. FINDINGS: LOWER THORAX: Unremarkable. LIVER: Unremarkable. No gross lesion or ductal dilatation. GALLBLADDER AND BILE DUCTS: Distended gallbladder, trace pericholecystic fluid. Gallstones are identified lodged in the neck of the gallbladder only seen on sagittal series (series 602/image 56). The finding is marked on the study for review. PANCREAS: Unremarkable. No gross lesion or ductal dilatation. SPLEEN: Unremarkable. ADRENALS: Unremarkable. No mass. KIDNEYS AND URETERS: Unremarkable. No hydronephrosis. No solid mass. VASCULATURE: Unremarkable. No aortic aneurysm. No atherosclerotic calcification or mural plaque present. BOWEL: Constipation without fecal impaction or obstruction. APPENDIX: Normal appendix. PERITONEUM: Trace free fluid in the pelvis. No free air. LYMPH NODES: Unremarkable. No enlarged lymph nodes. BLADDER: Unremarkable. REPRODUCTIVE: Unremarkable. BONES: No acute fracture. OTHER FINDINGS: None. IMPRESSION: Cholelithiasis/presumptive evidence for acute cholecystitis. Concordant results (preliminary interpretation) provided by [facility]. Procedure Completed: 00:30. Preliminary Report: Dictated and Authenticated: 02:02. Final Interpretation: 09:07.
--- NOTE | 2018-02-11 09:49 | US ---
Date of service: 02/11/2018 HISTORY: Cholecystitis w/ gallstones COMPARISON: None. TECHNIQUE: Sonographic evaluation of the abdomen. FINDINGS: LIVER: Measures 19.8 cm. Patent portal vein. Portal venous flow: Hepatopetal. Unremarkable echogenicity of the liver parenchyma. No mass. No intrahepatic bile duct dilatation. GALLBLADDER: Cholelithiasis. Negative study for gallbladder wall thickening, sonographic Lemon's sign. Trace pericholecystic fluid identified. COMMON BILE DUCT: Measures 10.3 mm. Dilated common bile duct without common duct stones. PANCREAS: Unremarkable as visualized. No mass. No ductal dilatation. RIGHT KIDNEY: Measures 4.7 x 12.0cm. Normal echogenicity. No calculus, mass, or hydronephrosis. LEFT KIDNEY: Measures 5.7 x 12.4cm. Normal echogenicity. No calculus, mass, or hydronephrosis. SPLEEN: Normal in size and contour. No mass. AORTA: No aneurysmal dilatation. IVC: Unremarkable. OTHER FINDINGS: None. IMPRESSION: Cholelithiasis/trace pericholecystic fluid without gallbladder wall edema or positive sonographic Lemon's sign. If acute cholecystitis is suspected hepatobiliary scan advised. Concordant findings (preliminary report) provided by [facility].
[2018-02-11] MEDS ORDERED: Ciprofloxacin 400mg/200ml D5W 400 MG/200 ML BAG IVPB SCH (10:00)
[2018-02-11 12:30] LABS: HEPATITIS B SURFACE AG Negative (NEGATIVE)
--- NOTE | 2018-02-11 12:30 | CP.PCM.CON ---
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 States that he developed sudden onset RUQ abdominal pain 2 days prior to arrival. Pain was stabbing, 10/10 in intensity and intermittent, worse with any attempted food ingestion. He has been nauseated and had episodes of vomiting and diarrhea. Denies any sick contacts, recent travel or similar symptoms previously. At this time, patient is requesting narcotic pain medications and believes he is having the beginnings of opiate withdrawal. Notes subjective fever/chills and generalized malaise. In general, refusing to participate in history or physical. 12 system ROS performed but limited given patient cooperation and clinical condition PMHx: See HPI PSHx: ? left LE thrombectomy for DVT FHx: Discussed with patient and he denies any significant family history Social: As described - intranasal heroin and cocaine use; denies EtOH or tobacco use recently - previous tobacco use Endo: No prior endoscopic evaluations Past Patient History - Past Medical History & Family History Past Medical History?: No - Past Social History Smoking Status: Light Smoker < 10 Cigarettes Daily - CARDIAC Hx Cardiac Disorders: Yes Hx Hypertension: Yes - PULMONARY Hx Tuberculosis: No - NEUROLOGICAL Hx Neurological Disorder: No Hx Seizures: No - HEENT Hx HEENT Problems: No - RENAL Hx Chronic Kidney Disease: No - ENDOCRINE/METABOLIC Hx Endocrine Disorders: No - HEMATOLOGICAL/ONCOLOGICAL Hx Blood Disorders: No - INTEGUMENTARY Hx Dermatological Problems: No - MUSCULOSKELETAL/RHEUMATOLOGICAL Hx Musculoskeletal Disorders: No Hx Falls: No - GASTROINTESTINAL Other/Comment: Abdominal pain, vomit, constipation - GENITOURINARY/GYNECOLOGICAL Hx Genitourinary Disorders: No - PSYCHIATRIC Hx Bipolar Disorder: Yes Hx Substance Use: Yes (Heroin/ cocaine) - SURGICAL HISTORY Other/Comment: 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 ago - ANESTHESIA Hx Anesthesia: Yes Hx Anesthesia Reactions: No Meds Allergies/Adverse Reactions: Allergies Allergy/AdvReac Type Severity Reaction Status Date / Time egg Allergy RASH Verified 10/11/17 23:08 peanut Allergy RASH Verified 10/11/17 23:08 - Medications Medications: Current Medications Famotidine (Pepcid) 20 mg IVP DAILY [facility] Last Admin: 02/11/18 09:49 Dose: 20 mg Sodium Chloride (Sodium Chloride 0.9%) 1,000 mls @ 150 mls/hr IV .Q6H40M [facility] Last Admin: 02/11/18 09:51 Dose: 150 mls/hr Metronidazole (Flagyl) 500 mg in 100 mls @ 100 mls/hr IVPB Q8 [facility]; Protocol Morphine Sulfate (Morphine) 2 mg IVP Q4H PRN PRN Reason: Pain, severe (8-10) Last Admin: 02/11/18 09:49 Dose: 2 mg Ondansetron HCl (Zofran Inj) 4 mg IVP Q6H PRN PRN Reason: Nausea/Vomiting Physical Exam - Constitutional Appears: Non-toxic, Agitated, Other (uncomfortable) - Eye Exam Eye Exam: EOMI, PERRL - ENT Exam ENT Exam: Mucous Membranes Moist - Respiratory Exam Respiratory Exam: Clear to Auscultation Bilateral. absent: Rales, Rhonchi, Wheezes - Cardiovascular Exam Cardiovascular Exam: Tachycardia, +S1, +S2 - GI/Abdominal Exam GI & Abdominal Exam: Normal Bowel Sounds, Soft, Tenderness (diffusely, worst in RUQ). absent: Distended, Firm, Guarding, Organomegaly, Rigid - Extremities Exam Extremities exam: Positive for: normal inspection. Negative for: pedal edema - Neurological Exam Neurological exam: Alert, Oriented x3 - Psychiatric Exam Psychiatric exam: Agitated, Anxious - Skin Skin Exam: Dry, Warm Results - Vital Signs Recent Vital Signs: Last Vital Signs Temp 99.2 F 02/11/18 08:51 Pulse 70 02/11/18 08:51 Resp 20 02/11/18 10:00 BP 138/77 02/11/18 08:51 Pulse Ox 95 02/11/18 08:51 - Labs Result Diagrams: 02/11/18 07:30 02/11/18 07:30 Labs: Laboratory Results - last 24 hr 02/10/18 02/10/18 02/10/18 23:30 23:30 23:30 WBC 14.9 H RBC 5.50 Hgb 16.5 D Hct 47.1 MCV 85.6 MCH 30.0 MCHC 35.0 RDW 13.1 Plt Count 234 MPV 10.0 Gran % 75.6 H Lymph % (Auto) 14.6 L [place] % (Auto) 9.1 H Eos % (Auto) 0.6 L Baso % (Auto) 0.1 Gran # 11.25 H Lymph # (Auto) 2.2 [place] # (Auto) 1.4 H Eos # (Auto) 0.1 Baso # (Auto) 0.01 PT INR APTT pO2 39 VBG pH 7.41 VBG pCO2 48.0 VBG HCO3 30.4 H VBG Total CO2 31.9 H VBG O2 Sat (Calc) 81.3 H VBG Base Excess 4.8 H VBG Potassium 3.7 Sodium 139.0 138 Chloride 100.0 102 Glucose 126 H Lactate 1.8 FiO2 21.0 Potassium 3.9 Carbon Dioxide 28 Anion Gap 11 BUN 10 Creatinine 0.8 Est GFR ( Amer) > 60 Est GFR (Non-Af Amer) > 60 Random Glucose 126 H Calcium 9.6 Phosphorus Magnesium 2.1 Total Bilirubin 1.0 AST 66 H ALT 101 H Alkaline Phosphatase 112 Total Protein 9.0 H Albumin 4.5 Globulin 4.5 Albumin/Globulin Ratio 1.0 L Lipase 35 Venous Blood Potassium 3.7 Urine Color Urine Appearance Urine pH Ur Specific [place] Urine Protein Urine Glucose (UA) Urine Ketones Urine Blood Urine Nitrate Urine Bilirubin Urine Urobilinogen Ur Leukocyte Esterase Urine RBC Urine WBC Ur Epithelial Cells Amorphous Sediment Urine Bacteria Urine Opiates Screen Urine Methadone Screen Ur Barbiturates Screen Ur Phencyclidine Scrn Ur Amphetamines Screen U Benzodiazepines Scrn U Oth Cocaine Metabols U Cannabinoids Screen 02/10/18 02/10/18 02/11/18 23:43 23:43 05:35 WBC RBC Hgb Hct MCV MCH MCHC RDW Plt Count MPV Gran % Lymph % (Auto) [place] % (Auto) Eos % (Auto) Baso % (Auto) Gran # Lymph # (Auto) [place] # (Auto) Eos # (Auto) Baso # (Auto) PT 13.1 H INR 1.14 APTT pO2 VBG pH VBG pCO2 VBG HCO3 VBG Total CO2 VBG O2 Sat (Calc) VBG Base Excess VBG Potassium Sodium Chloride Glucose Lactate FiO2 Potassium Carbon Dioxide Anion Gap BUN Creatinine Est GFR ( Amer) Est GFR (Non-Af Amer) Random Glucose Calcium Phosphorus Magnesium Total Bilirubin AST ALT Alkaline Phosphatase Total Protein Albumin Globulin Albumin/Globulin Ratio Lipase Venous Blood Potassium Urine Color Yellow Urine Appearance Clear Urine pH 7.5 Ur Specific [place] 1.020 Urine Protein 30 H Urine Glucose (UA) Negative Urine Ketones 15 H Urine Blood Negative Urine Nitrate Negative Urine Bilirubin Negative Urine Urobilinogen 1.0 H Ur Leukocyte Esterase Negative Urine RBC 0 - 2 Urine WBC 0 - 2 Ur Epithelial Cells 0 - 2 Amorphous Sediment Small Urine Bacteria None Urine Opiates Screen Positive H Urine Methadone Screen Negative Ur Barbiturates Screen Negative Ur Phencyclidine Scrn Negative Ur Amphetamines Screen Negative U Benzodiazepines Scrn Negative U Oth Cocaine Metabols Positive H U Cannabinoids Screen Negative 02/11/18 02/11/18 02/11/18 06:00 07:30 07:30 WBC 12.0 H RBC 5.02 Hgb 14.8 Hct 43.0 MCV 85.7 MCH 29.5 MCHC 34.4 RDW 13.2 Plt Count 182 MPV 10.0 Gran % 77.5 H Lymph % (Auto) 10.0 L [place] % (Auto) 11.9 H Eos % (Auto) 0.5 L Baso % (Auto) 0.1 Gran # 9.30 H Lymph # (Auto) 1.2 [place] # (Auto) 1.4 H Eos # (Auto) 0.1 Baso # (Auto) 0.01 PT INR APTT 32.5 pO2 VBG pH VBG pCO2 VBG HCO3 VBG Total CO2 VBG O2 Sat (Calc) VBG Base Excess VBG Potassium Sodium 138 Chloride 103 Glucose Lactate FiO2 Potassium 3.7 Carbon Dioxide 28 Anion Gap 11 BUN 11 Creatinine 0.9 Est GFR ( Amer) > 60 Est GFR (Non-Af Amer) > 60 Random Glucose 138 H Calcium 8.9 Phosphorus 2.4 L Magnesium 2.1 Total Bilirubin 1.0 AST 46 ALT 88 H Alkaline Phosphatase 92 Total Protein 7.8 Albumin 3.9 Globulin 3.9 Albumin/Globulin Ratio 1.0 L Lipase Venous Blood Potassium Urine Color Urine Appearance Urine pH Ur Specific [place] Urine Protein Urine Glucose (UA) Urine Ketones Urine Blood Urine Nitrate Urine Bilirubin Urine Urobilinogen Ur Leukocyte Esterase Urine RBC Urine WBC Ur Epithelial Cells Amorphous Sediment Urine Bacteria Urine Opiates Screen Urine Methadone Screen Ur Barbiturates Screen Ur Phencyclidine Scrn Ur Amphetamines Screen U Benzodiazepines Scrn U Oth Cocaine Metabols U Cannabinoids Screen Assessment & Plan - Assessment and Plan (Free Text) Assessment: Patient is a 43yo male with PMHx significant for bipolar 1 with psychotic features, 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, prior DVT who presented to the ED with complaint of abdominal pain -Acute cholecystitis, R/O choledocolithiasis -Abnormal LFTs -Heroin and cocaine abuse/dependence and withdrawal -H/O DVT, not on anticoagulation -Bipolar 1 Plan: -Patient refusing or non-coperative with examination/treatment plan until withdrawal symptoms adequately controlled; encourage primary team to evaluate and consider psychiatry evaluation if necessary -Patient would benefit from both MRCP to further evaluate CBD and HIDA to evaluate cystic duct for occlusions; noncooperative presently -Dilated CBD at 1cm on U/S noted; however, dilation can be seen in chronic opiate abuse - must R/O obstruction -Patient was uncooperative during MRCP but study still able to show distal CBD defect -Plan for ERCP tomorrow, NPO past MN -Surgical evaluation appreciated - patient will benefit from cholecystectomy -Would recommend switching antibiotics to Zosyn -Check viral hepatitis profile -Lipase WNL -Heroin/cocaine cessation stressed -Psych eval encouraged - Date & Time Date: 02/11/18 Time: 08:00 <Cj Chun V - Last Filed: 02/11/18 22:25> Meds - Medications Medications: Current Medications Famotidine (Pepcid) 20 mg IVP DAILY [facility] Last Admin: 02/11/18 09:49 Dose: 20 mg Sodium Chloride (Sodium Chloride 0.9%) 1,000 mls @ 150 mls/hr IV .Q6H40M [facility] Last Admin: 02/11/18 20:51 Dose: 150 mls/hr Metronidazole (Flagyl) 500 mg in 100 mls @ 100 mls/hr IVPB Q8 [facility]; Protocol Last Admin: 02/11/18 21:22 Dose: 100 mls/hr Methadone HCl (Methadone) 10 mg PO TID [facility] Stop: 02/12/18 18:01 Last Admin: 02/11/18 16:58 Dose: 10 mg Morphine Sulfate (Morphine) 2 mg IVP Q4H PRN PRN Reason: Pain, severe (8-10) Last Admin: 02/11/18 20:55 Dose: 2 mg Ondansetron HCl (Zofran Inj) 4 mg IVP Q6H PRN PRN Reason: Nausea/Vomiting Results - Vital Signs Recent Vital Signs: Last Vital Signs Temp 100.9 F H 02/11/18 21:21 Pulse 70 02/11/18 08:51 Resp 20 02/11/18 10:00 BP 138/77 02/11/18 08:51 Pulse Ox 95 02/11/18 08:51 - Labs Result Diagrams: 02/11/18 07:30 02/11/18 07:30 Labs: Laboratory Results - last 24 hr 02/10/18 02/10/18 02/10/18 23:30 23:30 23:30 WBC 14.9 H RBC 5.50 Hgb 16.5 D Hct 47.1 MCV 85.6 MCH 30.0 MCHC 35.0 RDW 13.1 Plt Count 234 MPV 10.0 Gran % 75.6 H Lymph % (Auto) 14.6 L [place] % (Auto) 9.1 H Eos % (Auto) 0.6 L Baso % (Auto) 0.1 Gran # 11.25 H Lymph # (Auto) 2.2 [place] # (Auto) 1.4 H Eos # (Auto) 0.1 Baso # (Auto) 0.01 PT INR APTT pO2 39 VBG pH 7.41 VBG pCO2 48.0 VBG HCO3 30.4 H VBG Total CO2 31.9 H VBG O2 Sat (Calc) 81.3 H VBG Base Excess 4.8 H VBG Potassium 3.7 Sodium 139.0 138 Chloride 100.0 102 Glucose 126 H Lactate 1.8 FiO2 21.0 Potassium 3.9 Carbon Dioxide 28 Anion Gap 11 BUN 10 Creatinine 0.8 Est GFR ( Amer) > 60 Est GFR (Non-Af Amer) > 60 Random Glucose 126 H Calcium 9.6 Phosphorus Magnesium 2.1 Total Bilirubin 1.0 AST 66 H ALT 101 H Alkaline Phosphatase 112 Total Protein 9.0 H Albumin 4.5 Globulin 4.5 Albumin/Globulin Ratio 1.0 L Lipase 35 Procalcitonin Venous Blood Potassium 3.7 Urine Color Urine Appearance Urine pH Ur Specific [place] Urine Protein Urine Glucose (UA) Urine Ketones Urine Blood Urine Nitrate Urine Bilirubin Urine Urobilinogen Ur Leukocyte Esterase Urine RBC Urine WBC Ur Epithelial Cells Amorphous Sediment Urine Bacteria Urine Opiates Screen Urine Methadone Screen Ur Barbiturates Screen Ur Phencyclidine Scrn Ur Amphetamines Screen U Benzodiazepines Scrn U Oth Cocaine Metabols U Cannabinoids Screen Hepatitis A IgM Ab Hep Bs Antigen Hep B Core IgM Ab Hepatitis C Antibody 02/10/18 02/10/18 02/11/18 23:43 23:43 05:35 WBC RBC Hgb Hct MCV MCH MCHC RDW Plt Count MPV Gran % Lymph % (Auto) [place] % (Auto) Eos % (Auto) Baso % (Auto) Gran # Lymph # (Auto) [place] # (Auto) Eos # (Auto) Baso # (Auto) PT 13.1 H INR 1.14 APTT pO2 VBG pH VBG pCO2 VBG HCO3 VBG Total CO2 VBG O2 Sat (Calc) VBG Base Excess VBG Potassium Sodium Chloride Glucose Lactate FiO2 Potassium Carbon Dioxide Anion Gap BUN Creatinine Est GFR ( Amer) Est GFR (Non-Af Amer) Random Glucose Calcium Phosphorus Magnesium Total Bilirubin AST ALT Alkaline Phosphatase Total Protein Albumin Globulin Albumin/Globulin Ratio Lipase Procalcitonin Venous Blood Potassium Urine Color Yellow Urine Appearance Clear Urine pH 7.5 Ur Specific [place] 1.020 Urine Protein 30 H Urine Glucose (UA) Negative Urine Ketones 15 H Urine Blood Negative Urine Nitrate Negative Urine Bilirubin Negative Urine Urobilinogen 1.0 H Ur Leukocyte Esterase Negative Urine RBC 0 - 2 Urine WBC 0 - 2 Ur Epithelial Cells 0 - 2 Amorphous Sediment Small Urine Bacteria None Urine Opiates Screen Positive H Urine Methadone Screen Negative Ur Barbiturates Screen Negative Ur Phencyclidine Scrn Negative Ur Amphetamines Screen Negative U Benzodiazepines Scrn Negative U Oth Cocaine Metabols Positive H U Cannabinoids Screen Negative Hepatitis A IgM Ab Hep Bs Antigen Hep B Core IgM Ab Hepatitis C Antibody 02/11/18 02/11/18 02/11/18 06:00 07:30 07:30 WBC RBC Hgb Hct MCV MCH MCHC RDW Plt Count MPV Gran % Lymph % (Auto) [place] % (Auto) Eos % (Auto) Baso % (Auto) Gran # Lymph # (Auto) [place] # (Auto) Eos # (Auto) Baso # (Auto) PT INR APTT 32.5 pO2 VBG pH VBG pCO2 VBG HCO3 VBG Total CO2 VBG O2 Sat (Calc) VBG Base Excess VBG Potassium Sodium 138 Chloride 103 Glucose Lactate FiO2 Potassium 3.7 Carbon Dioxide 28 Anion Gap 11 BUN 11 Creatinine 0.9 Est GFR ( Amer) > 60 Est GFR (Non-Af Amer) > 60 Random Glucose 138 H Calcium 8.9 Phosphorus 2.4 L Magnesium 2.1 Total Bilirubin 1.0 AST 46 ALT 88 H Alkaline Phosphatase 92 Total Protein 7.8 Albumin 3.9 Globulin 3.9 Albumin/Globulin Ratio 1.0 L Lipase Procalcitonin 0.11 L Venous Blood Potassium Urine Color Urine Appearance Urine pH Ur Specific [place] Urine Protein Urine Glucose (UA) Urine Ketones Urine Blood Urine Nitrate Urine Bilirubin Urine Urobilinogen Ur Leukocyte Esterase Urine RBC Urine WBC Ur Epithelial Cells Amorphous Sediment Urine Bacteria Urine Opiates Screen Urine Methadone Screen Ur Barbiturates Screen Ur Phencyclidine Scrn Ur Amphetamines Screen U Benzodiazepines Scrn U Oth Cocaine Metabols U Cannabinoids Screen Hepatitis A IgM Ab Hep Bs Antigen Hep B Core IgM Ab Hepatitis C Antibody 02/11/18 02/11/18 07:30 08:06 WBC 12.0 H RBC 5.02 Hgb 14.8 Hct 43.0 MCV 85.7 MCH 29.5 MCHC 34.4 RDW 13.2 Plt Count 182 MPV 10.0 Gran % 77.5 H Lymph % (Auto) 10.0 L [place] % (Auto) 11.9 H Eos % (Auto) 0.5 L Baso % (Auto) 0.1 Gran # 9.30 H Lymph # (Auto) 1.2 [place] # (Auto) 1.4 H Eos # (Auto) 0.1 Baso # (Auto) 0.01 PT INR APTT pO2 VBG pH VBG pCO2 VBG HCO3 VBG Total CO2 VBG O2 Sat (Calc) VBG Base Excess VBG Potassium Sodium Chloride Glucose Lactate FiO2 Potassium Carbon Dioxide Anion Gap BUN Creatinine Est GFR ( Amer) Est GFR (Non-Af Amer) Random Glucose Calcium Phosphorus Magnesium Total Bilirubin AST ALT Alkaline Phosphatase Total Protein Albumin Globulin Albumin/Globulin Ratio Lipase Procalcitonin Venous Blood Potassium Urine Color Urine Appearance Urine pH Ur Specific [place] Urine Protein Urine Glucose (UA) Urine Ketones Urine Blood Urine Nitrate Urine Bilirubin Urine Urobilinogen Ur Leukocyte Esterase Urine RBC Urine WBC Ur Epithelial Cells Amorphous Sediment Urine Bacteria Urine Opiates Screen Urine Methadone Screen Ur Barbiturates Screen Ur Phencyclidine Scrn Ur Amphetamines Screen U Benzodiazepines Scrn U Oth Cocaine Metabols U Cannabinoids Screen Hepatitis A IgM Ab Negative Hep Bs Antigen Negative Hep B Core IgM Ab Negative Hepatitis C Antibody Reactive Attending/Attestation - Attestation I have personally seen and examined this patient.: Yes I have fully participated in the care of the patient.: Yes I have reviewed all pertinent clinical information: Yes Notes (Text): This is an addendum to GI consult report dictated by the GI Fellow.The patient was seen and examined earlier. Medical records, lab studies, imagings were reviewed. Last 24 hours events reviewed. Agreed with the above treatment plan as outlined in GI Fellow 's notes with the addition of the following Patient does have significant ten right upper quadrant area Imaging studies were reviewed Patient does have polysubstance drug abuse MRI was reviewed. One possible small distal CBD stone was seen continue IV antibiotics Follow-up LFT Patient is scheduled for EUS/ERCP tomorrow 02/11/18 22:22
[2018-02-11 12:36] LABS: HEPATITIS A IGM NEGATIVE (NEGATIVE); HEPATITIS B CORE AB NEGATIVE (NEGATIVE)
[2018-02-11] MEDS: metroNIDAZOLE IV 500 mg/100 ml 500 MG/100 ML BAG IVPB SCH ×2 (13:28→21:22)
--- NOTE | 2018-02-11 13:33 | MRI ---
Date of service: 02/11/2018 PROCEDURE: Magnetic Resonance Cholangiopancreatography HISTORY: COMPARISON: Abdomen ultrasound 02/11/2018. Abdomen pelvis CT with contrast 02/11/2018. TECHNIQUE: Multiplanar, multisequence MR images of the abdomen were obtained, including heavily T2 weighted MRCP images of the biliary system. Rotating maximum intensity projection images of the biliary system were generated. FINDINGS: Incomplete examination. Patient could not tolerate performing the entire exam. MRCP: 3 mm calculus is difficult to completely exclude at the distal most common bile duct with proximal CBD measuring 1.3 cm and mid CBD measuring 1.1 cm. Distal common bile duct measures 7.5 mm. Cholelithiasis identified within the dependent portion of the gallbladder which is distended. Trace pericholecystic fluid is identified without prominent mural thickening. Overall pattern is concordant with sonographic appearance of the gallbladder. Gallbladder mural thickening seen in CT 02/11/2018 is not currently apparent. LIVER: Unremarkable. GALLBLADDER: See MRCP discussion above. SPLEEN: Unremarkable. PANCREAS: Unremarkable. ADRENALS: Unremarkable. KIDNEYS: Unremarkable. AORTA: No aneurysm. ASCITES: None. OTHER FINDINGS: None. IMPRESSION: Incomplete MRCP exam as discussed above. Choledocholithiasis is difficult to completely exclude the distal common bile duct including a 3 mm distal CBD calculus. Limited pericholecystic fluid is seen with a distended gallbladder and numerous dependent gallstones in the gallbladder. Cholecystitis is not completely excluded but is the pattern is more compatible with sonographic appearance than CT appearance previously shown 02/11/2018.
[2018-02-11 13:56] LABS: HEPATITIS C ANTIBODY REACTIVE (NEGATIVE)
[2018-02-12] MEDS: Morphine 2 mg/ml ISec IVP PRN ×2 (01:45→06:13)
[2018-02-12] MEDS: metroNIDAZOLE IV 500 mg/100 ml 500 MG/100 ML BAG IVPB SCH ×3 (02:37→13:39)
[2018-02-12] MEDS: Sodium Chloride 0.9% 1,000 ML IV SCH ×3 (02:38→22:08)
[2018-02-12 08:03] LABS: BASO # 0.02 K/mm3 (0.0-2.0); BASO % 0.1 % (0.0-3.0); GRAN # 17.66 (1.4-6.5); GRAN % 81.6 % (50.0-68.0); HEMOGLOBIN 14.8 g/dL (14.0-18.0); LYMPH # 1.6 (1.2-3.4); LYMPH % 7.3 % (22.0-35.0); MEAN CELL VOLUME 84.6 fl (80.0-105.0); MEAN CORPUSCULAR HEMOGLOBIN 29.1 pg (25.0-35.0); MEAN CORPUSCULAR HGB CONC 34.4 g/dl (31.0-37.0); MEAN PLATELET VOLUME 10.3 fl (7.0-11.0); MONO # 2.4 (0.1-0.6); RBC 5.08 10^6/uL (3.5-6.1); WHITE BLOOD COUNT 21.6 10^3/uL (4.5-11.0)
[2018-02-12 08:11] LABS: ALBUMIN 3.9 g/dL (3.0-4.8); ALT/SGPT 62 U/L (7-56); AST/SGOT 33 U/L (17-59); BLOOD UREA NITROGEN 11 mg/dL (7-21); CALCIUM 8.9 mg/dL (8.4-10.5); GFR NON-AFRICAN AMERICAN > 60
[2018-02-12 08:12] LABS: INR 1.29; PARTIAL THROMBOPLASTIN TIME 31.6 Seconds (25.1-36.5); PROTHROMBIN TIME 14.9 SECONDS (9.4-12.5)
[2018-02-12 08:19] LABS: BARBITURATES, UR POSITIVE (NEGATIVE); BENZODIAZEPINES, UR NEGATIVE (NEGATIVE); OPIATES, UR POSITIVE (NEGATIVE); PHENCYCLIDINE, UR NEGATIVE (NEGATIVE)
[2018-02-12] MEDS ORDERED: Potassium Chloride 20 mEq ER Tab PO ONE (09:15)
[2018-02-12] MEDS ORDERED: Piperacillin/Tazobact 3.375 gm 100 ML IVPB SCH ×2 (09:15→22:00)
--- NOTE | 2018-02-12 11:05 | CP.PCM.PN ---
<Trinity Saldana - Last Filed: 02/12/18 12:59> Subjective - Date & Time of Evaluation Date of Evaluation: 02/12/18 Time of Evaluation: 11:04 - Subjective Subjective: General Surgery Progress Note for Dr. Mcmanus Patient seen and examined at bedside this morning. Patient's RUQ pain still persisting, even at rest. Patient denies chest pain, SOB, n/v. He endorses some diarrhea. Objective - Vital Signs/Intake and Output Vital Signs (last 24 hours): Temp Pulse Resp BP Pulse Ox 99.3 F 65 20 122/70 97 02/12/18 06:00 02/12/18 06:00 02/12/18 06:00 02/12/18 06:00 02/12/18 06:00 - Medications Medications: Current Medications Famotidine (Pepcid) 20 mg IVP DAILY [facility] Last Admin: 02/12/18 09:25 Dose: 20 mg Sodium Chloride (Sodium Chloride 0.9%) 1,000 mls @ 150 mls/hr IV .Q6H40M [facility] Last Admin: 02/12/18 06:14 Dose: 150 mls/hr Metronidazole (Flagyl) 500 mg in 100 mls @ 100 mls/hr IVPB Q8 [facility]; Protocol Last Admin: 02/12/18 06:14 Dose: 100 mls/hr Piperacillin Sod/Tazobactam Sod (Zosyn 3.375 In Ns 100ml) 100 mls @ 25 mls/hr IVPB Q8 [facility]; Protocol Stop: 02/12/18 17:59 Last Admin: 02/12/18 09:26 Dose: 25 mls/hr Methadone HCl (Methadone) 10 mg PO Q8H [facility] Stop: 02/12/18 23:00 Last Admin: 02/12/18 08:35 Dose: 10 mg Methadone HCl (Methadone) 5 mg PO Q8H [facility] Morphine Sulfate (Morphine) 2 mg IVP Q4H PRN PRN Reason: Pain, severe (8-10) Last Admin: 02/12/18 06:13 Dose: 2 mg Ondansetron HCl (Zofran Inj) 4 mg IVP Q6H PRN PRN Reason: Nausea/Vomiting - Labs Labs: 02/12/18 07:40 02/12/18 07:40 PT 14.9 SECONDS (9.4-12.5) H 02/12/18 07:40 INR 1.29 02/12/18 07:40 APTT 31.6 Seconds (25.1-36.5) 02/12/18 07:40 - Constitutional Appears: Agitated (patient lying in position) - Head Exam Head Exam: ATRAUMATIC, NORMAL INSPECTION, NORMOCEPHALIC - Eye Exam Eye Exam: EOMI Pupil Exam: Miosis - ENT Exam ENT Exam: Mucous Membranes Moist, Normal Exam - Neck Exam Neck Exam: Normal Inspection - Respiratory Exam Respiratory Exam: Clear to Ausculation Bilateral, NORMAL BREATHING PATTERN - Cardiovascular Exam Cardiovascular Exam: REGULAR RHYTHM - GI/Abdominal Exam GI & Abdominal Exam: Soft, Tenderness (tenderness to light palpation RUQ), Normal Bowel Sounds - Extremities Exam Extremities Exam: Normal Inspection. absent: Calf Tenderness, Joint Swelling, Tenderness Additional comments: peripheral pulses strong - Neurological Exam Neurological Exam: Alert, Awake, Oriented x3 - Psychiatric Exam Psychiatric exam: Agitated - Skin Skin Exam: Dry, Intact, Normal Color, Warm Assessment and Plan - Assessment and Plan (Free Text) Assessment: 43M with cholecystitis -MRCP 02/11 - distal CBD has 3 mm calculus -continue NPO -continue abx -pending ERCP today, 02/12, in the afternoon -cholecystectomy tomorrow or Saturday Trinity Saldana PGY1 <Sea Mcmanus - Last Filed: 02/16/18 22:30> Objective - Vital Signs/Intake and Output Vital Signs (last 24 hours): Temp Pulse Resp BP Pulse Ox 98.8 F 81 18 122/73 97 02/16/18 10:49 02/16/18 18:34 02/16/18 10:49 02/16/18 18:34 02/16/18 10:49 - Medications Medications: Current Medications Acetaminophen (Tylenol 325mg Tab) 975 mg PO Q8 [facility] Last Admin: 02/16/18 21:00 Dose: 975 mg Clonidine HCl (Catapres) 0.1 mg PO BID [facility] Last Admin: 02/16/18 18:34 Dose: 0.1 mg Enoxaparin Sodium (Lovenox) 40 mg SC DAILY [facility]; Protocol Last Admin: 02/16/18 11:09 Dose: 40 mg Gabapentin (Neurontin) 100 mg PO TID [facility]; Protocol Last Admin: 02/16/18 18:35 Dose: 100 mg Piperacillin Sod/Tazobactam Sod (Zosyn 3.375 In Ns 100ml) 100 mls @ 25 mls/hr IVPB Q12 [facility]; Protocol Stop: 02/22/18 22:01 Last Admin: 02/16/18 21:08 Dose: 25 mls/hr Lactated Ringer's (Lactated Ringer's) 1,000 mls @ 60 mls/hr IV .[id number] [facility] Last Admin: 02/15/18 22:59 Dose: 60 mls/hr Ketorolac Tromethamine (Toradol) 30 mg IVP Q6H [facility] Last Admin: 02/16/18 21:05 Dose: 30 mg Methadone HCl (Methadone) 5 mg PO Q8H [facility] Last Admin: 02/16/18 16:00 Dose: Not Given Metoclopramide HCl (Reglan) 10 mg IV ONCE PRN PRN Reason: Nausea/Vomiting Nicotine (Nicoderm Cq) 1 patch TD DAILY [facility] Last Admin: 02/16/18 11:19 Dose: 1 patch Ondansetron HCl (Zofran Inj) 4 mg IVP Q6H PRN PRN Reason: Nausea/Vomiting Pantoprazole Sodium (Protonix Inj) 40 mg IVP DAILY [facility] Last Admin: 02/16/18 11:08 Dose: 40 mg - Labs Labs: 02/16/18 09:20 02/16/18 09:20 PT 14.9 SECONDS (9.4-12.5) H 02/12/18 07:40 INR 1.29 02/12/18 07:40 APTT 31.6 Seconds (25.1-36.5) 02/12/18 07:40 Attending/Attestation - Attestation I have personally seen and examined this patient.: Yes I have fully participated in the care of the patient.: Yes I have reviewed all pertinent clinical information, including history, physical exam and plan: Yes Notes (Text): Pt was seen and examined at bedside Agree with above note and assessment Pt has upper abdominal pain ERCP today IV antibiotics Repeat LFTs and Amylase, Lipase in am Plan d.w pt in detail
[2018-02-12] MEDS ORDERED: Indomethacin 50 MG Suppository PR ONE (13:29)
[2018-02-12] MEDS ORDERED: Iohexol 240 (50 ml) ONE (13:30)
[2018-02-12] MEDS ORDERED: Lactated Ringer's 1,000 ML IV SCH (15:45)
[2018-02-12] MEDS ORDERED: Rocuronium 10 mg/ml (5 ml) ONE (16:00)
[2018-02-12] MEDS ORDERED: Propofol 10 mg/ml Inj (20 ML) ONE ×3 (16:00→17:57)
[2018-02-12] MEDS ORDERED: Midazolam 2 MG/2 ML VIAL ONE ×2 (16:06→18:12)
[2018-02-12] MEDS ORDERED: Glucagon Recombinant 1 mg Inj ONE (17:28)
--- NOTE | 2018-02-12 20:24 | CP.PCM.PN ---
Subjective - Date & Time of Evaluation Date of Evaluation: 02/12/18 Time of Evaluation: 20:21 - Subjective Subjective: Maddie Cardenas, PGY-1, Internal Medicine Progress Note for Dr. Page Patient seen and evaluated at bedside. Patient had no overnight events. Patient reports having withdrawal symptoms from heroin and was asking for methadone. Patient continues to report abdominal pain but denies nausea, vomiting, diarrhea, chest pain, shortness of breath. 12-point ROS was unremarkable except for what was mentioned above. Objective - Vital Signs/Intake and Output Vital Signs (last 24 hours): Temp Pulse Resp BP Pulse Ox 97.9 F 67 18 144/83 97 02/12/18 19:43 02/12/18 19:43 02/12/18 19:43 02/12/18 19:43 02/12/18 19:43 - Medications Medications: Current Medications Clonidine HCl (Catapres) 0.1 mg PO BID [facility] Famotidine (Pepcid) 20 mg IVP DAILY [facility] Last Admin: 02/12/18 09:25 Dose: 20 mg Sodium Chloride (Sodium Chloride 0.9%) 1,000 mls @ 150 mls/hr IV .Q6H40M [facility] Last Admin: 02/12/18 06:14 Dose: 150 mls/hr Metronidazole (Flagyl) 500 mg in 100 mls @ 100 mls/hr IVPB Q8 [facility]; Protocol Last Admin: 02/12/18 13:39 Dose: 100 mls/hr Methadone HCl (Methadone) 10 mg PO Q8H [facility] Stop: 02/12/18 23:00 Last Admin: 02/12/18 17:13 Dose: Not Given Methadone HCl (Methadone) 5 mg PO Q8H [facility] Morphine Sulfate (Morphine) 2 mg IVP Q4H PRN PRN Reason: Pain, severe (8-10) Last Admin: 02/12/18 06:13 Dose: 2 mg Ondansetron HCl (Zofran Inj) 4 mg IVP Q6H PRN PRN Reason: Nausea/Vomiting Ondansetron HCl (Zofran Inj) 4 mg IVP ONCE PRN PRN Reason: Nausea/Vomiting - Labs Labs: 02/12/18 07:40 02/12/18 07:40 PT 14.9 SECONDS (9.4-12.5) H 02/12/18 07:40 INR 1.29 02/12/18 07:40 APTT 31.6 Seconds (25.1-36.5) 02/12/18 07:40 - Constitutional Appears: Well, Non-toxic, No Acute Distress - Head Exam Head Exam: ATRAUMATIC, NORMAL INSPECTION, NORMOCEPHALIC - Eye Exam Eye Exam: EOMI - ENT Exam ENT Exam: Mucous Membranes Moist - Neck Exam Neck Exam: Full ROM - Respiratory Exam Respiratory Exam: Clear to Ausculation Bilateral, NORMAL BREATHING PATTERN - GI/Abdominal Exam GI & Abdominal Exam: Soft, Tenderness, Normal Bowel Sounds - Extremities Exam Extremities Exam: Full ROM - Neurological Exam Neurological Exam: Alert, CN II-XII Intact Assessment and Plan - Assessment and Plan (Free Text) Assessment: 43 year old male with past medical history of bipolar I disorder and DVT of left leg presents with 2 day history of abdominal pain in right upper and lower quadrant that radiates to the side of the back with nonbloody vomiting and diarrhea. Last bowel movement was 2 days ago. Plan: Abdominal pain 2/2 to cholecystitis vs. choledocholithiasis vs. cholangitis -CTAP: cholecystitis vs. cholelithiasis -Abdominal ultrasound: cholelithiasis/trace pericholecystic fluid without gallbladder wall edema or positive sonographic Lemon's sign -MRCP: choledocholithaisis is difficult to exclude the distal CBD including a 2 mm distal CBD calculus. Limited pericholecystic fluid is seen with a distended gallbladder and numerous dependent gallstones in the gallbadder. Cholecystitis is not completely excluded but is the pattern more compatible with sonographic appearance than previous CT -Leukocytosis present at 21.6 from 12 -Unremarkable lipase and procalcitonin. -GI, Dr. Chun consulted for recommendations. He recommended starting patient on zosyn. Patient is now on zosyn -Follow up ERCP results -Dr. Mcmanus consulted for surgery recommendations. Patient for likely cholecystectomy tomorrow or Saturday. -ID, Dr. Vieira, consulted for recommendations. Follow recommendations. Hepatitis C -Hepatitis C antibody reactive -Will order hepatitis C RNA and genotype for treating outpatient. Hypokalemia -K: 3.5 -Replete as necessary Elevated ALT -ALT: 62 -Unremarkable AST, ALP, bilirubin Polysubstance abuse -UDS: positive for opiates, barbiturates, cocaine -Heroin, cocaine, barbiturates cessation suggested -Methadone 10 mg Q8H for withdrawal. History of bipolar -Not currently on any medication History of DVT with left leg thrombectomy -patient unsure of exact year -not currently on anticoagulation DVT prophylaxis: SCD GI prophylaxis: pepcid Patient plan discussed with Dr. Page
[2018-02-12] MEDS ORDERED: Piperacillin/Tazobact 3.375 gm Inj IVPB SCH (22:00)
[2018-02-12] MEDS: Piperacillin/Tazobact 3.375 gm 100 ML IVPB SCH (22:08)
[2018-02-12 23:52] LABS: BARBITURATES, UR NEGATIVE (NEGATIVE); OPIATES, UR NEGATIVE (NEGATIVE)
[2018-02-13 00:30] LABS: BENZODIAZEPINES, UR POSITIVE (NEGATIVE); PHENCYCLIDINE, UR NEGATIVE (NEGATIVE)
[2018-02-13] MEDS: Piperacillin/Tazobact 3.375 gm 100 ML IVPB SCH ×2 (05:23→22:09)
[2018-02-13] MEDS: Sodium Chloride 0.9% 1,000 ML IV SCH (05:24)
[2018-02-13 07:26] LABS: BASO # 0.01 K/mm3 (0.0-2.0); BASO % 0.1 % (0.0-3.0); EOS % 0.1 % (1.5-5.0); GRAN # 14.68 (1.4-6.5); GRAN % 84.9 % (50.0-68.0); HEMOGLOBIN 13.7 g/dL (14.0-18.0); LYMPH # 1.3 (1.2-3.4); LYMPH % 7.8 % (22.0-35.0); MEAN CELL VOLUME 84.2 fl (80.0-105.0); MEAN CORPUSCULAR HEMOGLOBIN 28.8 pg (25.0-35.0); MEAN CORPUSCULAR HGB CONC 34.3 g/dl (31.0-37.0); MEAN PLATELET VOLUME 10.5 fl (7.0-11.0); MONO # 1.2 (0.1-0.6); MONO % 7.1 % (1.0-6.0); RBC 4.75 10^6/uL (3.5-6.1); WHITE BLOOD COUNT 17.3 10^3/uL (4.5-11.0)
[2018-02-13 07:53] LABS: ALB/GLOB RATIO 0.9 (1.1-1.8); ALBUMIN 3.4 g/dL (3.0-4.8); ALT/SGPT 45 U/L (7-56); AST/SGOT 24 U/L (17-59); BLOOD UREA NITROGEN 13 mg/dL (7-21); CALCIUM 8.4 mg/dL (8.4-10.5); GFR NON-AFRICAN AMERICAN > 60
[2018-02-13] MEDS: Morphine 2 mg/ml ISec IVP PRN ×3 (08:02→22:09)
--- NOTE | 2018-02-13 08:26 | CP.PCM.PN ---
<Marcus Aguiar - Last Filed: 02/13/18 08:23> Subjective - Date & Time of Evaluation Date of Evaluation: 02/13/18 Time of Evaluation: 07:00 - Subjective Subjective: Patient seen and examined. S/p ERCP with stent placement. Patient reports slight improvement in abdominal pain. Denies fever/chills. Still experiencing RUQ pain. Denies nausea/vomiting. Objective - Vital Signs/Intake and Output Vital Signs (last 24 hours): Temp Pulse Resp BP Pulse Ox 98.5 F 59 L 20 121/67 95 02/13/18 06:00 02/13/18 06:00 02/13/18 06:00 02/13/18 06:00 02/13/18 06:00 - Medications Medications: Current Medications Clonidine HCl (Catapres) 0.1 mg PO BID [facility] Sodium Chloride (Sodium Chloride 0.9%) 1,000 mls @ 150 mls/hr IV .Q6H40M [facility] Last Admin: 02/13/18 05:24 Dose: 150 mls/hr Piperacillin Sod/Tazobactam Sod (Zosyn 3.375 In Ns 100ml) 100 mls @ 25 mls/hr IVPB Q8 [facility] Stop: 02/19/18 22:01 Last Admin: 02/13/18 05:23 Dose: 25 mls/hr Methadone HCl (Methadone) 5 mg PO Q8H [facility] Morphine Sulfate (Morphine) 2 mg IVP Q4H PRN PRN Reason: Pain, severe (8-10) Last Admin: 02/13/18 08:02 Dose: 2 mg Ondansetron HCl (Zofran Inj) 4 mg IVP Q6H PRN PRN Reason: Nausea/Vomiting Pantoprazole Sodium (Protonix Inj) 40 mg IVP DAILY [facility] - Labs Labs: 02/13/18 07:00 02/13/18 07:00 PT 14.9 SECONDS (9.4-12.5) H 02/12/18 07:40 INR 1.29 02/12/18 07:40 APTT 31.6 Seconds (25.1-36.5) 02/12/18 07:40 - Constitutional Appears: Non-toxic, No Acute Distress - Head Exam Head Exam: NORMAL INSPECTION, NORMOCEPHALIC - Eye Exam Eye Exam: EOMI, Normal appearance - ENT Exam ENT Exam: Mucous Membranes Moist - Respiratory Exam Respiratory Exam: NORMAL BREATHING PATTERN - Cardiovascular Exam Cardiovascular Exam: +S1, +S2 - GI/Abdominal Exam GI & Abdominal Exam: Soft, Tenderness. absent: Distended, Firm, Guarding - Neurological Exam Neurological Exam: Alert, Awake, Oriented x3 - Psychiatric Exam Psychiatric exam: Normal Mood - Skin Skin Exam: Dry, Intact, Warm Assessment and Plan - Assessment and Plan (Free Text) Assessment: 43M with acute cholecystitis & choledocholithiasis s/p ERCP w/ stent placement Plan: -CLD -IVF -ABx -Analgesics prn -anti-emetics prn -NPO p MN -OR tomorrow for laparoscopic cholecystectomy possible open -D/w Dr. Marietta Weinberg PGY3 <Sea Mcmanus - Last Filed: 02/16/18 22:32> Objective - Vital Signs/Intake and Output Vital Signs (last 24 hours): Temp Pulse Resp BP Pulse Ox 98.8 F 81 18 122/73 97 02/16/18 10:49 02/16/18 18:34 02/16/18 10:49 02/16/18 18:34 02/16/18 10:49 - Medications Medications: Current Medications Acetaminophen (Tylenol 325mg Tab) 975 mg PO Q8 [facility] Last Admin: 02/16/18 21:00 Dose: 975 mg Clonidine HCl (Catapres) 0.1 mg PO BID [facility] Last Admin: 02/16/18 18:34 Dose: 0.1 mg Enoxaparin Sodium (Lovenox) 40 mg SC DAILY [facility]; Protocol Last Admin: 02/16/18 11:09 Dose: 40 mg Gabapentin (Neurontin) 100 mg PO TID [facility]; Protocol Last Admin: 02/16/18 18:35 Dose: 100 mg Piperacillin Sod/Tazobactam Sod (Zosyn 3.375 In Ns 100ml) 100 mls @ 25 mls/hr IVPB Q12 [facility]; Protocol Stop: 02/22/18 22:01 Last Admin: 02/16/18 21:08 Dose: 25 mls/hr Lactated Ringer's (Lactated Ringer's) 1,000 mls @ 60 mls/hr IV .[id number] [facility] Last Admin: 02/15/18 22:59 Dose: 60 mls/hr Ketorolac Tromethamine (Toradol) 30 mg IVP Q6H [facility] Last Admin: 02/16/18 21:05 Dose: 30 mg Methadone HCl (Methadone) 5 mg PO Q8H [facility] Last Admin: 02/16/18 16:00 Dose: Not Given Metoclopramide HCl (Reglan) 10 mg IV ONCE PRN PRN Reason: Nausea/Vomiting Nicotine (Nicoderm Cq) 1 patch TD DAILY [facility] Last Admin: 02/16/18 11:19 Dose: 1 patch Ondansetron HCl (Zofran Inj) 4 mg IVP Q6H PRN PRN Reason: Nausea/Vomiting Pantoprazole Sodium (Protonix Inj) 40 mg IVP DAILY [facility] Last Admin: 02/16/18 11:08 Dose: 40 mg - Labs Labs: 02/16/18 09:20 02/16/18 09:20 PT 14.9 SECONDS (9.4-12.5) H 02/12/18 07:40 INR 1.29 02/12/18 07:40 APTT 31.6 Seconds (25.1-36.5) 02/12/18 07:40 Attending/Attestation - Attestation I have personally seen and examined this patient.: Yes I have fully participated in the care of the patient.: Yes I have reviewed all pertinent clinical information, including history, physical exam and plan: Yes Notes (Text): Pt is improving clinically Pain is controlled OR for Lap Cholecystectomy on saturday C/w IV antibiotics Consent Plan d.w pt in detail Risk and benefit explained in detail.
--- NOTE | 2018-02-13 15:23 | CP.PCM.PN ---
<Bryson Willard - Last Filed: 02/13/18 15:19> Subjective - Date & Time of Evaluation Date of Evaluation: 02/13/18 Time of Evaluation: 09:50 - Subjective Subjective: PGY6 GI Fellow Progress Note Patient seen and examined bedside this morning. The patient states that he is feeling much better today. Denies any events overnight. Eager to have full diet. 12 system ROS performed and negative except where stated Objective - Vital Signs/Intake and Output Vital Signs (last 24 hours): Temp Pulse Resp BP Pulse Ox 98.5 F 59 L 20 121/67 95 02/13/18 06:00 02/13/18 06:00 02/13/18 06:00 02/13/18 09:08 02/13/18 06:00 - Medications Medications: Current Medications Clonidine HCl (Catapres) 0.1 mg PO BID [facility] Last Admin: 02/13/18 09:08 Dose: Not Given Sodium Chloride (Sodium Chloride 0.9%) 1,000 mls @ 150 mls/hr IV .Q6H40M [facility] Last Admin: 02/13/18 05:24 Dose: 150 mls/hr Piperacillin Sod/Tazobactam Sod (Zosyn 3.375 In Ns 100ml) 100 mls @ 25 mls/hr IVPB Q12 [facility]; Protocol Stop: 02/22/18 22:01 Ketorolac Tromethamine (Toradol) 30 mg IVP Q6 PRN PRN Reason: Pain, moderate (4-7) Methadone HCl (Methadone) 5 mg PO Q8H [facility] Last Admin: 02/13/18 09:07 Dose: 5 mg Morphine Sulfate (Morphine) 2 mg IVP Q4H PRN PRN Reason: Pain, severe (8-10) Last Admin: 02/13/18 13:53 Dose: 2 mg Ondansetron HCl (Zofran Inj) 4 mg IVP Q6H PRN PRN Reason: Nausea/Vomiting Pantoprazole Sodium (Protonix Inj) 40 mg IVP DAILY [facility] Last Admin: 02/13/18 09:07 Dose: 40 mg - Labs Labs: 02/13/18 07:00 02/13/18 07:00 PT 14.9 SECONDS (9.4-12.5) H 02/12/18 07:40 INR 1.29 02/12/18 07:40 APTT 31.6 Seconds (25.1-36.5) 02/12/18 07:40 - Constitutional Appears: Non-toxic, No Acute Distress - Eye Exam Eye Exam: EOMI, PERRL - ENT Exam ENT Exam: Mucous Membranes Moist - Respiratory Exam Respiratory Exam: Clear to Ausculation Bilateral. absent: Rales, Rhonchi, Wheezes - Cardiovascular Exam Cardiovascular Exam: RRR, +S1, +S2 - GI/Abdominal Exam GI & Abdominal Exam: Soft, Normal Bowel Sounds. absent: Distended, Firm, Guarding, Rigid, Tenderness, Organomegaly - Extremities Exam Extremities Exam: Normal Inspection. absent: Pedal Edema - Neurological Exam Neurological Exam: Alert, Awake, Oriented x3 - Psychiatric Exam Psychiatric exam: Normal Affect, Normal Mood - Skin Skin Exam: Dry, Warm Assessment and Plan - Assessment and Plan (Free Text) Assessment: Patient is a 43yo male with PMHx significant for bipolar 1 with psychotic features, 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, prior DVT who presented to the ED with complaint of abdominal pain -Acute cholecystitis and cholangitis -Abnormal LFTs -Heroin and cocaine abuse/dependence and withdrawal -H/O DVT, not on anticoagulation -Bipolar 1 Plan: -S/P EGD/EUS/ERCP yesterday with sphincterotomy, balloon sweep and CBD stent placement -WBC downtrending, patient pain has lessened -To have cholecystectomy tomorrow with surgical service -Recommend PPI therapy QD -Diet to be advanced per surgical service -As biliary stent was placed, patient will require repeat EGD for removal - educated at length on the dangers of poor follow up and not having stent removed which included severe infection/sepsis and disability/ - patient understands and agrees to follow up for removal -Heroin/cocaine cessation stressed -Remainder of plan per surgical team <Cj Chun V - Last Filed: 02/13/18 23:51> Objective - Vital Signs/Intake and Output Vital Signs (last 24 hours): Temp Pulse Resp BP Pulse Ox 99.6 F 59 L 18 114/66 94 L 02/13/18 21:58 02/13/18 21:58 02/13/18 21:58 02/13/18 21:58 02/13/18 21:58 Intake and Output: 12/13/18 12/14/18 18:59 06:59 Intake Total 1000 620 Balance 1000 620 - Medications Medications: Current Medications Clonidine HCl (Catapres) 0.1 mg PO BID [facility] Last Admin: 02/13/18 17:00 Dose: 0.1 mg Sodium Chloride (Sodium Chloride 0.9%) 1,000 mls @ 150 mls/hr IV .Q6H40M [facility] Last Admin: 02/13/18 05:24 Dose: 150 mls/hr Piperacillin Sod/Tazobactam Sod (Zosyn 3.375 In Ns 100ml) 100 mls @ 25 mls/hr IVPB Q12 [facility]; Protocol Stop: 02/22/18 22:01 Last Admin: 02/13/18 22:09 Dose: 25 mls/hr Lactated Ringer's (Lactated Ringer's) 1,000 mls @ 125 mls/hr IV .Q8H [facility] Ketorolac Tromethamine (Toradol) 30 mg IVP Q6 PRN PRN Reason: Pain, moderate (4-7) Methadone HCl (Methadone) 5 mg PO Q8H [facility] Last Admin: 02/13/18 16:59 Dose: 5 mg Morphine Sulfate (Morphine) 2 mg IVP Q4H PRN PRN Reason: Pain, severe (8-10) Last Admin: 02/13/18 22:09 Dose: 2 mg Ondansetron HCl (Zofran Inj) 4 mg IVP Q6H PRN PRN Reason: Nausea/Vomiting Pantoprazole Sodium (Protonix Inj) 40 mg IVP DAILY [facility] Last Admin: 02/13/18 09:07 Dose: 40 mg - Labs Labs: 02/13/18 07:00 02/13/18 07:00 PT 14.9 SECONDS (9.4-12.5) H 02/12/18 07:40 INR 1.29 02/12/18 07:40 APTT 31.6 Seconds (25.1-36.5) 02/12/18 07:40 Attending/Attestation - Attestation I have personally seen and examined this patient.: Yes I have fully participated in the care of the patient.: Yes I have reviewed all pertinent clinical information, including history, physical exam and plan: Yes Notes (Text): This is an addendum to GI progress report dictated by the GI Fellow. The patient was seen and examined earlier. Medical records, lab studies, imagings were reviewed. Last 24 hours events reviewed. Agreed with the above treatment plan as outlined in GI Fellow 's notes with the addition of the following 02/13/18 23:51
[2018-02-13] MEDS ORDERED: Potassium Chloride 40 mEq/30 ml LIQ UD PO ONE (16:43)
--- NOTE | 2018-02-13 16:54 | RAD ---
Date of service: 02/12/2018 PROCEDURE: Fluoroscopy up to 1 hr. HISTORY: ? CBD OBST COMPARISON: None TECHNIQUE: Standard protocol for this study/examination. FINDINGS: Total fluoroscopic time (continuous mode) utilized during the procedure 479.1 seconds. Total exam DLP: 237.68 (mGy). IMPRESSION: ERCP/stent deployment performed with fluoroscopic guidance.
--- NOTE | 2018-02-13 16:59 | CP.PCM.PN ---
<Maddie Cardenas - Last Filed: 02/13/18 16:38> Subjective - Date & Time of Evaluation Date of Evaluation: 02/13/18 Time of Evaluation: 16:38 - Subjective Subjective: Maddie Cardenas, PGY-1, Internal Medicine Progress Note for Dr. Carrizales Patient seen and evaluated at bedside. Patient had no overnight events. Patient reports having withdrawal symptoms from heroin and was asking for methadone. Patient continues to report abdominal pain but denies nausea, vomiting, diarrhea, chest pain, shortness of breath. 12-point ROS was unremarkable except for what was mentioned above. Objective - Vital Signs/Intake and Output Vital Signs (last 24 hours): Temp Pulse Resp BP Pulse Ox 98.2 F 55 L 18 154/89 H 100 02/13/18 15:54 02/13/18 15:54 02/13/18 15:54 02/13/18 15:54 02/13/18 15:54 - Medications Medications: Current Medications Clonidine HCl (Catapres) 0.1 mg PO BID [facility] Last Admin: 02/13/18 09:08 Dose: Not Given Sodium Chloride (Sodium Chloride 0.9%) 1,000 mls @ 150 mls/hr IV .Q6H40M [facility] Last Admin: 02/13/18 05:24 Dose: 150 mls/hr Piperacillin Sod/Tazobactam Sod (Zosyn 3.375 In Ns 100ml) 100 mls @ 25 mls/hr IVPB Q12 [facility]; Protocol Stop: 02/22/18 22:01 Lactated Ringer's (Lactated Ringer's) 1,000 mls @ 125 mls/hr IV .Q8H [facility] Ketorolac Tromethamine (Toradol) 30 mg IVP Q6 PRN PRN Reason: Pain, moderate (4-7) Methadone HCl (Methadone) 5 mg PO Q8H [facility] Last Admin: 02/13/18 09:07 Dose: 5 mg Morphine Sulfate (Morphine) 2 mg IVP Q4H PRN PRN Reason: Pain, severe (8-10) Last Admin: 02/13/18 13:53 Dose: 2 mg Ondansetron HCl (Zofran Inj) 4 mg IVP Q6H PRN PRN Reason: Nausea/Vomiting Pantoprazole Sodium (Protonix Inj) 40 mg IVP DAILY [facility] Last Admin: 02/13/18 09:07 Dose: 40 mg - Labs Labs: 02/13/18 07:00 02/13/18 07:00 PT 14.9 SECONDS (9.4-12.5) H 02/12/18 07:40 INR 1.29 02/12/18 07:40 APTT 31.6 Seconds (25.1-36.5) 02/12/18 07:40 - Constitutional Appears: Well, Non-toxic, No Acute Distress - Head Exam Head Exam: ATRAUMATIC, NORMAL INSPECTION, NORMOCEPHALIC - Eye Exam Eye Exam: EOMI, PERRL - Respiratory Exam Respiratory Exam: Clear to Ausculation Bilateral, NORMAL BREATHING PATTERN - Cardiovascular Exam Cardiovascular Exam: REGULAR RHYTHM - GI/Abdominal Exam GI & Abdominal Exam: Soft, Tenderness, Normal Bowel Sounds (RUQ and RLQ). absent: Distended, Firm, Guarding - Extremities Exam Extremities Exam: Full ROM - Neurological Exam Neurological Exam: Alert, Awake, CN II-XII Intact, Oriented x3 Assessment and Plan - Assessment and Plan (Free Text) Assessment: 43 year old male with past medical history of bipolar I disorder and DVT of left leg presents with 2 day history of abdominal pain in right upper and lower quadrant that radiates to the side of the back with nonbloody vomiting and diarrhea. Last bowel movement was 3 days ago. Plan: Abdominal pain 2/2 to cholecystitis vs. choledocholithiasis vs. cholangitis -CTAP: cholecystitis vs. cholelithiasis -Abdominal ultrasound: cholelithiasis/trace pericholecystic fluid without gallbladder wall edema or positive sonographic Lemon's sign -MRCP: choledocholithaisis is difficult to exclude the distal CBD including a 2 mm distal CBD calculus. Limited pericholecystic fluid is seen with a distended gallbladder and numerous dependent gallstones in the gallbadder. Cholecystitis is not completely excluded but is the pattern more compatible with sonographic appearance than previous CT -EGD results: chronic gastritis, erosive gastropath, nonbleeding duodenal ulcers with clean ulcer base, multiple stones visualized endoscopically in the gallbl adder. Dilation of CBD measured up to 9mm. -ERCP: choledocholithiasis found. Complete removal was accomplished by biliary sphincterotomy and balloon extraction. Biliary tree was swept. Contrast holdup was noticed in view of sepsis stent was placed good biliary drainage. One plastic stent was placed into common bile duct. -GI recommends repeat EGD for evaluation of ulcers and ERCP for removal of st ent, cholecystectomy tomorrow, and to keep the patient NPO after midnight. -As per GI, patient was educated regarding the important of following up with GI outpatient to have stent removed. -Patient reports improved but not fully relieved pain following ERCP. -Leukocytosis improved to 17.3 today -Blood culture and body fluid culture shows no growth at this time. -Unremarkable lipase and procalcitonin. -Protonix started due to patient's gastritis found on EGD. -Toradol 30 mg Q6PRN for pain. -Patient should be NPO past midnight. Patient is currently on a regular diet. -GI, Dr. Chun consulted for recommendations. He recommended starting patient on zosyn. Patient is now on zosyn. -Dr. Mcmanus consulted for surgery recommendations. Patient for likely cholecystectomy tomorrow. -ID, Dr. Vieira, consulted for recommendations. Follow recommendations. Hepatitis C -Hepatitis C antibody reactive -Will order hepatitis C RNA and genotype for treating outpatient. -HIV 4th gen ordered. Hypokalemia -K: 3.4 -Replete as necessary Elevated ALT-resolved -ALT: 45 -Unremarkable AST, ALP, bilirubin Polysubstance abuse -UDS: positive for opiates, barbiturates, cocaine on first UDS -UDS: positive for benzodiazepines on last UDS -Patient has been educated regarding restricting visitors due to new substances appearing in patient's UDS. -Heroin, cocaine, benzodiazepines, barbiturates cessation suggested -Methadone 10 mg Q8H for withdrawal. -Continue with clonidine to decrease sympathetic response. History of bipolar -Not currently on any medication History of DVT with left leg thrombectomy -patient unsure of exact year -not currently on anticoagulation DVT prophylaxis: SCD GI prophylaxis: protonix Patient plan discussed with Dr. Carrizales. <Ehsan Carrizales - Last Filed: 02/13/18 18:22> Objective - Vital Signs/Intake and Output Vital Signs (last 24 hours): Temp Pulse Resp BP Pulse Ox 98.2 F 65 18 154/89 H 100 02/13/18 15:54 02/13/18 17:00 02/13/18 15:54 02/13/18 17:00 02/13/18 15:54 - Medications Medications: Current Medications Clonidine HCl (Catapres) 0.1 mg PO BID [facility] Last Admin: 02/13/18 17:00 Dose: 0.1 mg Sodium Chloride (Sodium Chloride 0.9%) 1,000 mls @ 150 mls/hr IV .Q6H40M [facility] Last Admin: 02/13/18 05:24 Dose: 150 mls/hr Piperacillin Sod/Tazobactam Sod (Zosyn 3.375 In Ns 100ml) 100 mls @ 25 mls/hr IVPB Q12 [facility]; Protocol Stop: 02/22/18 22:01 Lactated Ringer's (Lactated Ringer's) 1,000 mls @ 125 mls/hr IV .Q8H [facility] Ketorolac Tromethamine (Toradol) 30 mg IVP Q6 PRN PRN Reason: Pain, moderate (4-7) Methadone HCl (Methadone) 5 mg PO Q8H [facility] Last Admin: 02/13/18 16:59 Dose: 5 mg Morphine Sulfate (Morphine) 2 mg IVP Q4H PRN PRN Reason: Pain, severe (8-10) Last Admin: 02/13/18 13:53 Dose: 2 mg Ondansetron HCl (Zofran Inj) 4 mg IVP Q6H PRN PRN Reason: Nausea/Vomiting Pantoprazole Sodium (Protonix Inj) 40 mg IVP DAILY [facility] Last Admin: 02/13/18 09:07 Dose: 40 mg - Labs Labs: 02/13/18 07:00 02/13/18 07:00 PT 14.9 SECONDS (9.4-12.5) H 02/12/18 07:40 INR 1.29 02/12/18 07:40 APTT 31.6 Seconds (25.1-36.5) 02/12/18 07:40 Attending/Attestation - Attestation I have personally seen and examined this patient.: Yes I have fully participated in the care of the patient.: Yes I have reviewed all pertinent clinical information, including history, physical exam and plan: Yes
--- NOTE | 2018-02-13 23:42 | CON ---
DATE: 02/13/2018 LOCATION: The patient seen in room 569, bed 2. CHIEF COMPLAINT: Initially was abdominal pain times several days. HISTORY OF PRESENT ILLNESS: This is a 43-year-old obese male with a BMI of 31, who also has depression, bipolar, alcohol use, heroin use, cocaine use, history of DVT, hypertension, who is admitted with abdominal pain, found to have gallbladder disease, was taken to ERCP, EUS, endoscopy with stent placement, and Infectious Disease consultation was called for antibiotic use. The patient is still having abdominal pain and fevers, improved. No nausea or vomiting. REVIEW OF SYSTEMS: A 14-point review of systems is performed. PAST MEDICAL HISTORY: Significant for DVT, hypertension, bipolar, depression, and alcohol abuse. PAST SURGICAL HISTORY: Significant for a knee surgery. ALLERGIES: THE PATIENT IS ALLERGIC TO EGG AND PEANUTS. MEDICATIONS AT HOME: Unknown. PHYSICAL EXAMINATION: GENERAL: The patient is in bed, in no acute distress. VITAL SIGNS: Temperature 99, T-max was 100.9; heart rate of 59; respiratory rate of 20, it was up to 27 yesterday; and blood pressure 156/94. HEENT: Unremarkable. NECK: Supple. LUNGS: Decreased breath sounds. HEART: Normal S1, S2. ABDOMEN: There is right upper quadrant tenderness. No rebound or guarding. LABORATORY EXAMINATION: Reveals a white count of 17,000, hemoglobin of 13. Chemistries reveals an elevated blood sugar. Procalcitonin is normal. LFTs are elevated. Bilirubin is normal. Urinalysis is unremarkable. Toxicology reveals positive urine screen for opiates and positive cocaine and positive barbiturates. Hepatitis profile reveals to be positive for hep C antibody. Microbiology reveals the blood cultures are negative, and the bile cultures are pending. ASSESSMENT AND PLAN: This is a 43-year-old male with sepsis secondary to acute cholecystitis and positive hepatitis C. The patient for OR tomorrow, and we will treat the patient with Zosyn, order an HIV test because of his age, and we will follow closely with you. Evgeny Thomas MD
[2018-02-14] MEDS: Lactated Ringer's 1,000 ML IV SCH ×3 (00:28→17:22)
[2018-02-14] MEDS: Morphine 2 mg/ml ISec IVP PRN ×2 (06:42→20:41)
[2018-02-14 07:12] LABS: BASO # 0.02 K/mm3 (0.0-2.0); BASO % 0.1 % (0.0-3.0); EOS # 0.1 (0.0-0.7); EOS % 0.6 % (1.5-5.0); GRAN # 12.23 (1.4-6.5); GRAN % 78.6 % (50.0-68.0); HEMOGLOBIN 13.8 g/dL (14.0-18.0); LYMPH # 1.7 (1.2-3.4); LYMPH % 11.1 % (22.0-35.0); MEAN CELL VOLUME 84.7 fl (80.0-105.0); MEAN CORPUSCULAR HEMOGLOBIN 28.9 pg (25.0-35.0); MEAN CORPUSCULAR HGB CONC 34.2 g/dl (31.0-37.0); MEAN PLATELET VOLUME 10.4 fl (7.0-11.0); MONO # 1.5 (0.1-0.6); MONO % 9.6 % (1.0-6.0); RBC 4.77 10^6/uL (3.5-6.1); RED CELL DISTRIBUTION WIDTH 13.2 % (11.5-14.5); WHITE BLOOD COUNT 15.6 10^3/uL (4.5-11.0)
[2018-02-14 07:36] LABS: ALB/GLOB RATIO 0.9 (1.1-1.8); ALBUMIN 3.3 g/dL (3.0-4.8); ALT/SGPT 36 U/L (7-56); AST/SGOT 24 U/L (17-59); BLOOD UREA NITROGEN 10 mg/dL (7-21); CALCIUM 8.5 mg/dL (8.4-10.5); GFR NON-AFRICAN AMERICAN > 60
[2018-02-14] MEDS ORDERED: Potassium Chloride 20 mEq ER Tab PO STA (09:07)
[2018-02-14] MEDS: Piperacillin/Tazobact 3.375 gm 100 ML IVPB SCH ×2 (09:29→22:31)
[2018-02-14] MEDS ORDERED: Potassium & Sodium Phosphate PO ONE (13:06)
[2018-02-14] MEDS ORDERED: Lidocaine 1% w Epi 1:100,000 Inj ONE (14:25)
[2018-02-14] MEDS ORDERED: Bupivacaine 0.5% 50 ML IJ ONE (14:25)
--- NOTE | 2018-02-14 14:33 | CP.PCM.PN ---
<Maddie Cardenas - Last Filed: 02/14/18 14:26> Subjective - Date & Time of Evaluation Date of Evaluation: 02/14/18 Time of Evaluation: 14:26 - Subjective Subjective: Maddie Cardenas, PGY-1, Internal Medicine Progress Note for Dr. Carrizales Patient seen and evaluated at bedside. Patient had no overnight events. Patient reports having withdrawal symptoms from heroin and was asking for methadone. Patient reports improved abdominal pain but denies nausea, vomiting, diarrhea, chest pain, shortness of breath. 12-point ROS was unremarkable except for what was mentioned above. Objective - Vital Signs/Intake and Output Vital Signs (last 24 hours): Temp Pulse Resp BP Pulse Ox 99.7 F H 68 20 140/85 97 02/14/18 06:00 02/14/18 09:32 02/14/18 06:00 02/14/18 09:32 02/14/18 06:00 Intake and Output: 02/14/18 02/14/18 06:59 18:59 Intake Total 620 Output Total 300 Balance 320 - Medications Medications: Current Medications Clonidine HCl (Catapres) 0.1 mg PO BID [facility] Last Admin: 02/14/18 09:32 Dose: 0.1 mg Sodium Chloride (Sodium Chloride 0.9%) 1,000 mls @ 150 mls/hr IV .Q6H40M [facility] Last Admin: 02/13/18 05:24 Dose: 150 mls/hr Piperacillin Sod/Tazobactam Sod (Zosyn 3.375 In Ns 100ml) 100 mls @ 25 mls/hr IVPB Q12 [facility]; Protocol Stop: 02/22/18 22:01 Last Admin: 02/14/18 09:29 Dose: 25 mls/hr Lactated Ringer's (Lactated Ringer's) 1,000 mls @ 125 mls/hr IV .Q8H [facility] Last Admin: 02/14/18 09:34 Dose: 125 mls/hr Ketorolac Tromethamine (Toradol) 30 mg IVP Q6 PRN PRN Reason: Pain, moderate (4-7) Methadone HCl (Methadone) 5 mg PO Q8H [facility] Last Admin: 02/14/18 09:33 Dose: 5 mg Morphine Sulfate (Morphine) 2 mg IVP Q4H PRN PRN Reason: Pain, severe (8-10) Last Admin: 02/14/18 06:42 Dose: 2 mg Ondansetron HCl (Zofran Inj) 4 mg IVP Q6H PRN PRN Reason: Nausea/Vomiting Pantoprazole Sodium (Protonix Inj) 40 mg IVP DAILY [facility] Last Admin: 02/14/18 09:33 Dose: 40 mg - Labs Labs: 02/14/18 06:30 02/14/18 06:30 PT 14.9 SECONDS (9.4-12.5) H 02/12/18 07:40 INR 1.29 02/12/18 07:40 APTT 31.6 Seconds (25.1-36.5) 02/12/18 07:40 - Constitutional Appears: Well, Non-toxic, No Acute Distress - Head Exam Head Exam: ATRAUMATIC, NORMAL INSPECTION, NORMOCEPHALIC - Eye Exam Eye Exam: EOMI, PERRL - Respiratory Exam Respiratory Exam: Clear to Ausculation Bilateral, NORMAL BREATHING PATTERN - Cardiovascular Exam Cardiovascular Exam: REGULAR RHYTHM - GI/Abdominal Exam GI & Abdominal Exam: Soft, Tenderness (RUQ, RLQ), Normal Bowel Sounds - Extremities Exam Extremities Exam: Full ROM - Neurological Exam Neurological Exam: Alert, Awake, CN II-XII Intact Assessment and Plan - Assessment and Plan (Free Text) Assessment: 43 year old male with past medical history of bipolar I disorder and DVT of left leg presents with 2 day history of abdominal pain in right upper and lower quadrant that radiates to the side of the back with nonbloody vomiting and diarrhea. Patient was found to have choledocholithiasis and had ERCP and was found to have cholecystitis. Plan: Abdominal pain 2/2 to cholecystitis vs. choledocholithiasis vs. cholangitis -CTAP: cholecystitis vs. cholelithiasis -Abdominal ultrasound: cholelithiasis/trace pericholecystic fluid without gallbladder wall edema or positive sonographic Lemon's sign -MRCP: choledocholithaisis is difficult to exclude the distal CBD including a 2 mm distal CBD calculus. Limited pericholecystic fluid is seen with a distended gallbladder and numerous dependent gallstones in the gallbadder. Cholecystitis is not completely excluded but is the pattern more compatible with sonographic appearance than previous CT -EGD results: chronic gastritis, erosive gastropath, nonbleeding duodenal ulcers with clean ulcer base, multiple stones visualized endoscopically in the gallbladder. Dilation of CBD measured up to 9mm. -ERCP: choledocholithiasis found. Complete removal was accomplished by biliary sphincterotomy and balloon extraction. Biliary tree was swept. Contrast holdup was noticed in view of sepsis stent was placed good biliary drainage. One plastic stent was placed into common bile duct. -GI recommends repeat EGD for evaluation of ulcers and ERCP for removal of stent, cholecystectomy tomorrow. -As per GI, patient was educated regarding the important of following up with GI outpatient to have stent removed. -Patient reports improved but not fully relieved pain following ERCP. -Leukocytosis improved to 15.6 today -Blood culture and body fluid culture shows no growth at this time. -Unremarkable lipase and procalcitonin. -Protonix started due to patient's gastritis found on EGD. -Toradol 30 mg Q6PRN for pain. -Patient should be NPO past midnight. Patient is currently on a regular diet. -GI, Dr. Chun consulted for recommendations. He recommended starting patient on zosyn. Patient is now on zosyn. -Dr. Mcmanus consulted for surgery recommendations. Patient for cholecystectomy today. -ID, Dr. Vieira, consulted for recommendations. Follow recommendations. Hepatitis C -Hepatitis C antibody reactive -Will order hepatitis C RNA and genotype for treating outpatient. -HIV 4th gen: negative Hypokalemia -K: 3.4 -Replete as necessary Hypophosphatemia -PO4: 2.3 -Replete as necessary Elevated ALT-resolved -ALT: 36 -Unremarkable AST, ALP, bilirubin Polysubstance abuse -UDS: positive for opiates, barbiturates, cocaine on first UDS -UDS: positive for benzodiazepines on last UDS -Patient has been educated regarding restricting visitors due to new substances appearing in patient's UDS. -Heroin, cocaine, benzodiazepines, barbiturates cessation suggested -Methadone 10 mg Q8H for withdrawal. -Continue with clonidine to decrease sympathetic response. History of bipolar -Not currently on any medication History of DVT with left leg thrombectomy -patient unsure of exact year -not currently on anticoagulation DVT prophylaxis: SCD GI prophylaxis: protonix Patient plan was discussed with Dr. Carrizales <Ehsan Carrizales - Last Filed: 02/14/18 16:54> Objective - Vital Signs/Intake and Output Vital Signs (last 24 hours): Temp Pulse Resp BP Pulse Ox 99.7 F H 68 20 140/85 97 02/14/18 06:00 02/14/18 09:32 02/14/18 06:00 02/14/18 09:32 02/14/18 06:00 Intake and Output: 02/14/18 02/14/18 06:59 18:59 Intake Total 620 Output Total 300 Balance 320 - Medications Medications: Current Medications Clonidine HCl (Catapres) 0.1 mg PO BID [facility] Last Admin: 02/14/18 09:32 Dose: 0.1 mg Sodium Chloride (Sodium Chloride 0.9%) 1,000 mls @ 150 mls/hr IV .Q6H40M [facility] Last Admin: 02/13/18 05:24 Dose: 150 mls/hr Piperacillin Sod/Tazobactam Sod (Zosyn 3.375 In Ns 100ml) 100 mls @ 25 mls/hr IVPB Q12 [facility]; Protocol Stop: 02/22/18 22:01 Last Admin: 02/14/18 09:29 Dose: 25 mls/hr Lactated Ringer's (Lactated Ringer's) 1,000 mls @ 125 mls/hr IV .Q8H [facility] Last Admin: 02/14/18 09:34 Dose: 125 mls/hr Ketorolac Tromethamine (Toradol) 30 mg IVP Q6 PRN PRN Reason: Pain, moderate (4-7) Methadone HCl (Methadone) 5 mg PO Q8H [facility] Last Admin: 02/14/18 16:02 Dose: 5 mg Morphine Sulfate (Morphine) 2 mg IVP Q4H PRN PRN Reason: Pain, severe (8-10) Last Admin: 02/14/18 06:42 Dose: 2 mg Ondansetron HCl (Zofran Inj) 4 mg IVP Q6H PRN PRN Reason: Nausea/Vomiting Pantoprazole Sodium (Protonix Inj) 40 mg IVP DAILY [facility] Last Admin: 02/14/18 09:33 Dose: 40 mg - Labs Labs: 02/14/18 06:30 02/14/18 06:30 PT 14.9 SECONDS (9.4-12.5) H 12/12/18 07:40 INR 1.29 02/12/18 07:40 APTT 31.6 Seconds (25.1-36.5) 02/12/18 07:40 Attending/Attestation - Attestation I have personally seen and examined this patient.: Yes I have fully participated in the care of the patient.: Yes I have reviewed all pertinent clinical information, including history, physical exam and plan: Yes
--- NOTE | 2018-02-14 15:28 | CP.PCM.PN ---
<Hu Brito - Last Filed: 02/14/18 15:24> Subjective - Date & Time of Evaluation Date of Evaluation: 02/14/18 Time of Evaluation: 15:24 - Subjective Subjective: PGY-[address] Mcmanus Patient seen and examined at bedside. No acute events overnight per nursing. No new complaints at this time. Patient has been resting comfortably. OR postponed- patient will go for lap cristiana tomorrow. Made NPO past midnight. Denies chest pain, palpitations, dizziness, shortness of breath, vomiting. Objective - Vital Signs/Intake and Output Vital Signs (last 24 hours): Temp Pulse Resp BP Pulse Ox 99.7 F H 68 20 140/85 97 02/14/18 06:00 02/14/18 09:32 02/14/18 06:00 02/14/18 09:32 02/14/18 06:00 Intake and Output: 02/14/18 02/14/18 06:59 18:59 Intake Total 620 Output Total 300 Balance 320 - Medications Medications: Current Medications Clonidine HCl (Catapres) 0.1 mg PO BID [facility] Last Admin: 02/14/18 09:32 Dose: 0.1 mg Sodium Chloride (Sodium Chloride 0.9%) 1,000 mls @ 150 mls/hr IV .Q6H40M [facility] Last Admin: 02/13/18 05:24 Dose: 150 mls/hr Piperacillin Sod/Tazobactam Sod (Zosyn 3.375 In Ns 100ml) 100 mls @ 25 mls/hr IVPB Q12 [facility]; Protocol Stop: 02/22/18 22:01 Last Admin: 02/14/18 09:29 Dose: 25 mls/hr Lactated Ringer's (Lactated Ringer's) 1,000 mls @ 125 mls/hr IV .Q8H [facility] Last Admin: 02/14/18 09:34 Dose: 125 mls/hr Ketorolac Tromethamine (Toradol) 30 mg IVP Q6 PRN PRN Reason: Pain, moderate (4-7) Methadone HCl (Methadone) 5 mg PO Q8H [facility] Last Admin: 02/14/18 09:33 Dose: 5 mg Morphine Sulfate (Morphine) 2 mg IVP Q4H PRN PRN Reason: Pain, severe (8-10) Last Admin: 02/14/18 06:42 Dose: 2 mg Ondansetron HCl (Zofran Inj) 4 mg IVP Q6H PRN PRN Reason: Nausea/Vomiting Pantoprazole Sodium (Protonix Inj) 40 mg IVP DAILY [facility] Last Admin: 02/14/18 09:33 Dose: 40 mg - Labs Labs: 02/14/18 06:30 02/14/18 06:30 PT 14.9 SECONDS (9.4-12.5) H 02/12/18 07:40 INR 1.29 02/12/18 07:40 APTT 31.6 Seconds (25.1-36.5) 02/12/18 07:40 - Constitutional Appears: Non-toxic, No Acute Distress - Head Exam Head Exam: NORMAL INSPECTION - Eye Exam Eye Exam: EOMI, Normal appearance - ENT Exam ENT Exam: Mucous Membranes Moist - Respiratory Exam Respiratory Exam: Clear to Ausculation Bilateral, NORMAL BREATHING PATTERN. absent: Rhonchi, Wheezes - Cardiovascular Exam Cardiovascular Exam: REGULAR RHYTHM, +S1, +S2 - GI/Abdominal Exam GI & Abdominal Exam: Soft, Tenderness. absent: Distended, Firm, Guarding, Rebound - Neurological Exam Neurological Exam: Alert, Awake, Oriented x3 - Psychiatric Exam Psychiatric exam: Normal Affect, Normal Mood - Skin Skin Exam: Dry, Intact, Warm Assessment and Plan - Assessment and Plan (Free Text) Assessment: 43M with acute cholecystitis & choledocholithiasis s/p ERCP w/ stent placement Plan: - Continue clear liquid diet. - NPO past midnight - LRs at 125 cc/hr - ABx per ID - Zosyn - Analgesics prn - Anti-emetics prn - Operation postponed until tomorrow - OR tomorrow for laparoscopic cholecystectomy possible open - Surgery team discussed plan with Dr. Marietta Brito, PGY-1 <Sea Mcmnaus - Last Filed: 02/16/18 22:33> Objective - Vital Signs/Intake and Output Vital Signs (last 24 hours): Temp Pulse Resp BP Pulse Ox 98.8 F 81 18 122/73 97 02/16/18 10:49 02/16/18 18:34 02/16/18 10:49 02/16/18 18:34 02/16/18 10:49 - Medications Medications: Current Medications Acetaminophen (Tylenol 325mg Tab) 975 mg PO Q8 [facility] Last Admin: 02/16/18 21:00 Dose: 975 mg Clonidine HCl (Catapres) 0.1 mg PO BID [facility] Last Admin: 02/16/18 18:34 Dose: 0.1 mg Enoxaparin Sodium (Lovenox) 40 mg SC DAILY [facility]; Protocol Last Admin: 02/16/18 11:09 Dose: 40 mg Gabapentin (Neurontin) 100 mg PO TID [facility]; Protocol Last Admin: 02/16/18 18:35 Dose: 100 mg Piperacillin Sod/Tazobactam Sod (Zosyn 3.375 In Ns 100ml) 100 mls @ 25 mls/hr IVPB Q12 [facility]; Protocol Stop: 02/22/18 22:01 Last Admin: 02/16/18 21:08 Dose: 25 mls/hr Lactated Ringer's (Lactated Ringer's) 1,000 mls @ 60 mls/hr IV .[id number] [facility] Last Admin: 02/15/18 22:59 Dose: 60 mls/hr Ketorolac Tromethamine (Toradol) 30 mg IVP Q6H [facility] Last Admin: 02/16/18 21:05 Dose: 30 mg Methadone HCl (Methadone) 5 mg PO Q8H [facility] Last Admin: 02/16/18 16:00 Dose: Not Given Metoclopramide HCl (Reglan) 10 mg IV ONCE PRN PRN Reason: Nausea/Vomiting Nicotine (Nicoderm Cq) 1 patch TD DAILY [facility] Last Admin: 02/16/18 11:19 Dose: 1 patch Ondansetron HCl (Zofran Inj) 4 mg IVP Q6H PRN PRN Reason: Nausea/Vomiting Pantoprazole Sodium (Protonix Inj) 40 mg IVP DAILY [facility] Last Admin: 02/16/18 11:08 Dose: 40 mg - Labs Labs: 02/16/18 09:20 02/16/18 09:20 PT 14.9 SECONDS (9.4-12.5) H 02/12/18 07:40 INR 1.29 02/12/18 07:40 APTT 31.6 Seconds (25.1-36.5) 02/12/18 07:40 Attending/Attestation - Attestation I have fully participated in the care of the patient.: Yes I have reviewed all pertinent clinical information, including history, physical exam and plan: Yes Notes (Text): Pt is stable clinically OR for Lap Cholecystectomy tomorrow Consent IV antibiotics Plan d.w pt in detail
--- NOTE | 2018-02-14 20:25 | CP.PCM.PN ---
Subjective - Date & Time of Evaluation Date of Evaluation: 02/14/18 Time of Evaluation: 09:50 - Subjective Subjective: No fevers, still with abdominal but better, no nausea, for OR today. Objective - Vital Signs/Intake and Output Vital Signs (last 24 hours): Temp Pulse Resp BP Pulse Ox 99.7 F H 62 20 137/82 97 02/14/18 06:00 02/14/18 17:21 02/14/18 06:00 02/14/18 17:21 02/14/18 06:00 - Medications Medications: Current Medications Clonidine HCl (Catapres) 0.1 mg PO BID [facility] Last Admin: 02/14/18 17:21 Dose: 0.1 mg Sodium Chloride (Sodium Chloride 0.9%) 1,000 mls @ 150 mls/hr IV .Q6H40M [facility] Last Admin: 02/13/18 05:24 Dose: 150 mls/hr Piperacillin Sod/Tazobactam Sod (Zosyn 3.375 In Ns 100ml) 100 mls @ 25 mls/hr IVPB Q12 [facility]; Protocol Stop: 02/22/18 22:01 Last Admin: 02/14/18 09:29 Dose: 25 mls/hr Lactated Ringer's (Lactated Ringer's) 1,000 mls @ 125 mls/hr IV .Q8H [facility] Last Admin: 02/14/18 17:22 Dose: 125 mls/hr Ketorolac Tromethamine (Toradol) 30 mg IVP Q6 PRN PRN Reason: Pain, moderate (4-7) Methadone HCl (Methadone) 5 mg PO Q8H [facility] Last Admin: 02/14/18 16:02 Dose: 5 mg Morphine Sulfate (Morphine) 2 mg IVP Q4H PRN PRN Reason: Pain, severe (8-10) Last Admin: 02/14/18 06:42 Dose: 2 mg Ondansetron HCl (Zofran Inj) 4 mg IVP Q6H PRN PRN Reason: Nausea/Vomiting Pantoprazole Sodium (Protonix Inj) 40 mg IVP DAILY [facility] Last Admin: 02/14/18 09:33 Dose: 40 mg - Labs Labs: 02/14/18 06:30 02/14/18 06:30 PT 14.9 SECONDS (9.4-12.5) H 02/12/18 07:40 INR 1.29 02/12/18 07:40 APTT 31.6 Seconds (25.1-36.5) 02/12/18 07:40 - Constitutional Appears: Chronically Ill - Head Exam Head Exam: NORMAL INSPECTION - Respiratory Exam Respiratory Exam: Decreased Breath Sounds - Cardiovascular Exam Cardiovascular Exam: +S1, +S2 - GI/Abdominal Exam GI & Abdominal Exam: Soft. absent: Tenderness Assessment and Plan - Assessment and Plan (Free Text) Plan: Assessment Sepsis due to acute cholecystitis S/P ERCP for choledocholelithiasis with CBD stent placement history of DVT HTN bipolar disorder depression history of alcohol abuse Plan Continue Zosyn and patient is for OR today - follow up OR findings will monitor clinically
[2018-02-15] MEDS ORDERED: Morphine 2 mg/ml ISec IVP STA (04:24)
[2018-02-15 07:49] LABS: BASO # 0.02 K/mm3 (0.0-2.0); BASO % 0.1 % (0.0-3.0); EOS # 0.3 (0.0-0.7); GRAN # 10.37 (1.4-6.5); GRAN % 74.4 % (50.0-68.0); HEMOGLOBIN 13.6 g/dL (14.0-18.0); LYMPH # 1.9 (1.2-3.4); LYMPH % 13.5 % (22.0-35.0); MEAN CELL VOLUME 84.7 fl (80.0-105.0); MEAN CORPUSCULAR HEMOGLOBIN 28.9 pg (25.0-35.0); MEAN CORPUSCULAR HGB CONC 34.1 g/dl (31.0-37.0); MEAN PLATELET VOLUME 10.3 fl (7.0-11.0); MONO # 1.4 (0.1-0.6); RBC 4.71 10^6/uL (3.5-6.1); RED CELL DISTRIBUTION WIDTH 13.1 % (11.5-14.5); WHITE BLOOD COUNT 13.9 10^3/uL (4.5-11.0)
[2018-02-15 08:03] LABS: ALBUMIN 3.4 g/dL (3.0-4.8); ALT/SGPT 38 U/L (7-56); AST/SGOT 23 U/L (17-59); BLOOD UREA NITROGEN 9 mg/dL (7-21); CALCIUM 8.8 mg/dL (8.4-10.5); GFR NON-AFRICAN AMERICAN > 60
[2018-02-15] MEDS ORDERED: Bupivacaine 0.5% 50 ML IJ ONE (08:50)
[2018-02-15] MEDS ORDERED: Lidocaine 1% w Epi 1:100,000 Inj ONE (08:50)
[2018-02-15] MEDS ORDERED: Propofol 10 mg/ml Inj (20 ML) ONE (09:14)
[2018-02-15] MEDS ORDERED: Midazolam 2 MG/2 ML VIAL ONE (09:14)
[2018-02-15] MEDS ORDERED: Lidocaine 1% Inj (20ml) ONE (09:15)
[2018-02-15] MEDS ORDERED: Rocuronium 10 mg/ml (5 ml) ONE ×2 (09:16→10:42)
[2018-02-15] MEDS ORDERED: Glycopyrrolate 0.2 mg/ml (2ml vial) ONE (11:51)
[2018-02-15] MEDS ORDERED: Neostigmine Methylsulfate 3mg/3ml Syringe IV ONE (11:51)
[2018-02-15] MEDS ORDERED: HYDROmorphone 0.5 mg/0.5 ml ISec IVP PRN (13:11)
[2018-02-15] MEDS ORDERED: Lactated Ringer's 1,000 ML IV SCH ×2 (13:15→19:45)
[2018-02-15] MEDS ORDERED: HYDROmorphone 0.5 mg/0.5 ml ISec IVP ONE ×2 (13:15→13:30)
--- NOTE | 2018-02-15 13:18 | PCM.SURG1 ---
Surgeon's Initial Post Op Note - Surgeon's Notes Surgeon: Dr. Mcmanus [employer]: PGY2 Pre-Operative Diagnosis: Acute Cholecystitis Operative Findings: phlegmanous changes. Omental and fibrotic adhesions to the GBW. for details see op note Post-Operative Diagnosis: Acute on chronic cholecystitis Operation Performed: 1. Laparsocpic cholecystectomy Specimen/Specimens Removed: gallbladder Estimated Blood Loss: EBL {In ML}: 25 Drains Used: Med Post-Op Condition: Good Date of Surgery/Procedure: 02/15/18 Time of Surgery/Procedure: 13:18
[2018-02-15] MEDS ORDERED: HYDROmorphone 0.5 mg/0.5 ml ISec ONE ×2 (13:21→13:37)
--- NOTE | 2018-02-15 13:35 | CP.PCM.PN ---
<Jf Quiñonez - Last Filed: 02/15/18 16:57> Subjective - Date & Time of Evaluation Date of Evaluation: 02/15/18 Time of Evaluation: 09:30 - Subjective Subjective: Jf Quiñonez PGY-1 Progress Note for Hospitalist Service Patient seen and evaluated at bedside. No acute events reported overnight. Patient went for OR for planned cholecystectomy this morning. Patient reports residual pain. Objective - Vital Signs/Intake and Output Vital Signs (last 24 hours): Temp Pulse Resp BP Pulse Ox 99 F 62 18 127/62 96 02/15/18 13:22 02/15/18 13:22 02/15/18 13:22 02/15/18 13:22 02/15/18 13:22 Intake and Output: 02/15/18 02/15/18 06:59 18:59 Output Total 1000 Balance -1000 - Medications Medications: Current Medications Clonidine HCl (Catapres) 0.1 mg PO BID [facility] Last Admin: 02/14/18 17:21 Dose: 0.1 mg Enoxaparin Sodium (Lovenox) 40 mg SC DAILY [facility]; Protocol Hydromorphone HCl (Dilaudid) 0.5 mg IVP Q15M PRN PRN Reason: Pain, Moderate/Severe (4-10) Stop: 02/15/18 15:11 Sodium Chloride (Sodium Chloride 0.9%) 1,000 mls @ 150 mls/hr IV .Q6H40M [facility] Last Admin: 02/13/18 05:24 Dose: 150 mls/hr Piperacillin Sod/Tazobactam Sod (Zosyn 3.375 In Ns 100ml) 100 mls @ 25 mls/hr IVPB Q12 [facility]; Protocol Stop: 02/22/18 22:01 Last Admin: 02/14/18 22:31 Dose: 25 mls/hr Lactated Ringer's (Lactated Ringer's) 1,000 mls @ 125 mls/hr IV .Q8H [facility] Last Admin: 02/14/18 17:22 Dose: 125 mls/hr Lactated Ringer's (Lactated Ringer's) 1,000 mls @ 75 mls/hr IV .[id number] [facility] Stop: 02/15/18 15:16 Ketorolac Tromethamine (Toradol) 30 mg IVP Q6 PRN PRN Reason: Pain, moderate (4-7) Methadone HCl (Methadone) 5 mg PO Q8H [facility] Last Admin: 02/14/18 23:55 Dose: 5 mg Metoclopramide HCl (Reglan) 10 mg IV ONCE PRN PRN Reason: Nausea/Vomiting Ondansetron HCl (Zofran Inj) 4 mg IVP Q6H PRN PRN Reason: Nausea/Vomiting Pantoprazole Sodium (Protonix Inj) 40 mg IVP DAILY [facility] Last Admin: 02/14/18 09:33 Dose: 40 mg - Labs Labs: 02/15/18 07:00 02/15/18 07:00 PT 14.9 SECONDS (9.4-12.5) H 02/12/18 07:40 INR 1.29 02/12/18 07:40 APTT 31.6 Seconds (25.1-36.5) 02/12/18 07:40 - Additional Findings Additional findings: - Constitutional Appears: Well, Non-toxic, No Acute Distress - Head Exam Head Exam: ATRAUMATIC, NORMAL INSPECTION, NORMOCEPHALIC - Eye Exam Eye Exam: EOMI, PERRL - Respiratory Exam Respiratory Exam: Clear to Ausculation Bilateral, NORMAL BREATHING PATTERN - Cardiovascular Exam Cardiovascular Exam: REGULAR RHYTHM - GI/Abdominal Exam GI & Abdominal Exam: Soft, Tenderness (RUQ, RLQ), Normal Bowel Sounds. Dressings c/d/i. R sided drain draining serosanguinos fluid - Extremities Exam Extremities Exam: Full ROM - Neurological Exam Neurological Exam: Alert, Awake, CN II-XII Intact Assessment and Plan - Assessment and Plan (Free Text) Assessment: 43 year old male with past medical history of bipolar I disorder and DVT of left leg presents with 2 day history of abdominal pain in right upper and lower quadrant that radiates to the side of the back with nonbloody vomiting and diarrhea. Patient was found to have choledocholithiasis and had ERCP and was found to have cholecystitis. OR today for planned cholecystectomy. Plan: Abdominal pain 2/2 to cholecystitis vs. choledocholithiasis vs. cholangitis -CTAP: cholecystitis vs. cholelithiasis -Abdominal ultrasound: cholelithiasis/trace pericholecystic fluid without gallbladder wall edema or positive sonographic Lemon's sign -MRCP: choledocholithaisis is difficult to exclude the distal CBD including a 2 mm distal CBD calculus. Limited pericholecystic fluid is seen with a distended gallbladder and numerous dependent gallstones in the gallbadder. Cholecystitis is not completely excluded but is the pattern more compatible with sonographic appearance than previous CT -EGD results: chronic gastritis, erosive gastropath, nonbleeding duodenal ulcers with clean ulcer base, multiple stones visualized endoscopically in the gallbladder. Dilation of CBD measured up to 9mm. -ERCP: choledocholithiasis found. Complete removal was accomplished by biliary sphincterotomy and balloon extraction. Biliary tree was swept. Contrast holdup was noticed in view of sepsis stent was placed good biliary drainage. One plastic stent was placed into common bile duct. -GI recommends repeat EGD for evaluation of ulcers and ERCP for removal of stent, f/u cristiana report 02/15 -As per GI, patient was educated regarding the important of following up with GI outpatient to have stent removed. -Patient reports improved but not fully relieved pain following ERCP. -Leukocytosis improved to 13.9 today -Blood culture and body fluid culture shows no growth at this time. -Unremarkable lipase and procalcitonin. -Protonix started due to patient's gastritis found on EGD. -Toradol 30 mg Q6PRN for pain. -Patient is currently on a regular diet. -GI, Dr. Chun consulted for recommendations. He recommended starting patient on zosyn. Patient is now on zosyn. -Dr. Mcmanus consulted for surgery recommendations. Patient for cholecystectomy today. -ID, Dr. Vieira, consulted for recommendations. Follow recommendations. Hepatitis C -Hepatitis C antibody reactive -Will order hepatitis C RNA and genotype for treating outpatient. -HIV 4th gen: negative Hypokalemia- resolved -K: 3.8 -Replete as necessary Hypophosphatemia- resolved -PO4: 3.3 -Replete as necessary Elevated ALT-resolved -ALT: 38 -Unremarkable AST, ALP, bilirubin Polysubstance abuse -UDS: positive for opiates, barbiturates, cocaine on first UDS -UDS: positive for benzodiazepines on last UDS -Patient has been educated regarding restricting visitors due to new substances appearing in patient's UDS. -Heroin, cocaine, benzodiazepines, barbiturates cessation suggested -Methadone 10 mg Q8H for withdrawal. -Continue with clonidine to decrease sympathetic response. History of bipolar -Not currently on any medication History of DVT with left leg thrombectomy -patient unsure of exact year -not currently on anticoagulation DVT prophylaxis: SCD GI prophylaxis: protonix Patient seen, case reviewed and plan approved by Dr. Junior. Jf Quiñonez, PGY-1 <Latrice Junior - Last Filed: 02/18/18 08:30> Objective - Vital Signs/Intake and Output Vital Signs (last 24 hours): Temp Pulse Resp BP Pulse Ox 98.7 F 52 L 18 145/90 95 02/17/18 06:00 02/17/18 10:45 02/17/18 06:00 02/17/18 10:45 02/17/18 06:00 Intake and Output: 02/18/18 02/18/18 06:59 18:59 Output Total 75 Balance -75 - Medications Medications: Current Medications Clonidine HCl (Catapres) 0.1 mg PO BID [facility] Last Admin: 02/17/18 19:05 Dose: 0.1 mg Enoxaparin Sodium (Lovenox) 40 mg SC DAILY [facility]; Protocol Last Admin: 02/17/18 10:43 Dose: 40 mg Gabapentin (Neurontin) 100 mg PO TID [facility]; Protocol Last Admin: 02/17/18 19:04 Dose: 100 mg Piperacillin Sod/Tazobactam Sod (Zosyn 3.375 In Ns 100ml) 100 mls @ 25 mls/hr IVPB Q12 [facility]; Protocol Stop: 02/22/18 22:01 Last Admin: 02/16/18 21:08 Dose: 25 mls/hr Ketorolac Tromethamine (Toradol) 30 mg IVP Q6H [facility] Last Admin: 02/18/18 03:50 Dose: 30 mg Methadone HCl (Methadone) 5 mg PO Q8H [facility] Last Admin: 02/18/18 02:00 Dose: 5 mg Nicotine (Nicoderm Cq) 1 patch TD DAILY [facility] Last Admin: 02/17/18 10:46 Dose: 1 patch Pantoprazole Sodium (Protonix Ec Tab) 40 mg PO ACB [facility] - Labs Labs: 02/18/18 06:20 02/18/18 06:20 PT 14.9 SECONDS (9.4-12.5) H 02/12/18 07:40 INR 1.29 02/12/18 07:40 APTT 31.6 Seconds (25.1-36.5) 02/12/18 07:40 Attending/Attestation - Attestation I have personally seen and examined this patient.: Yes I have fully participated in the care of the patient.: Yes I have reviewed all pertinent clinical information, including history, physical exam and plan: Yes Notes (Text): 02/18/18 08:30 Medical record note made by the resident after discussion with my direction and input after the patient was personally seen and examined by me. I have reviewed the chart and agree that the record accurately reflects by personal performance of the history, physical exam, data review, and medical decision-making, in the course for the patient. I have also personally directed the plan of care.
[2018-02-15] MEDS: Piperacillin/Tazobact 3.375 gm 100 ML IVPB SCH ×2 (17:16→22:58)
--- NOTE | 2018-02-16 09:24 | CP.PCM.PN ---
Subjective - Date & Time of Evaluation Date of Evaluation: 02/16/18 Time of Evaluation: 07:10 - Subjective Subjective: General Surgery progress note for Dr. Mcmanus Patient seen and examined this am at bedside. KENDRA per nursing. Patient states that he is continuing to have pain but feels that it has been well controlled. He otherwise denies CORNEJO, CP, SOB, F/C, N/V and extremity pain/weakness. Drain output approximately 75 c overnight serosanguinous Objective - Vital Signs/Intake and Output Vital Signs (last 24 hours): Temp Pulse Resp BP Pulse Ox 100.0 F H 67 17 127/75 93 L 02/16/18 06:40 02/16/18 06:40 02/16/18 06:40 02/16/18 06:40 02/16/18 06:40 Intake and Output: 02/16/18 02/16/18 06:59 18:59 Intake Total 720 Output Total 1745 Balance -1025 - Medications Medications: Current Medications Clonidine HCl (Catapres) 0.1 mg PO BID [facility] Last Admin: 02/15/18 17:14 Dose: 0.1 mg Enoxaparin Sodium (Lovenox) 40 mg SC DAILY [facility]; Protocol Piperacillin Sod/Tazobactam Sod (Zosyn 3.375 In Ns 100ml) 100 mls @ 25 mls/hr IVPB Q12 [facility]; Protocol Stop: 02/22/18 22:01 Last Admin: 02/15/18 22:58 Dose: 25 mls/hr Lactated Ringer's (Lactated Ringer's) 1,000 mls @ 60 mls/hr IV .[id number] [facility] Last Admin: 02/15/18 22:59 Dose: 60 mls/hr Ketorolac Tromethamine (Toradol) 30 mg IVP Q6H PRN PRN Reason: Pain, moderate (4-7) Last Admin: 02/16/18 01:32 Dose: 30 mg Methadone HCl (Methadone) 5 mg PO Q8H [facility] Last Admin: 02/16/18 08:15 Dose: 5 mg Metoclopramide HCl (Reglan) 10 mg IV ONCE PRN PRN Reason: Nausea/Vomiting Ondansetron HCl (Zofran Inj) 4 mg IVP Q6H PRN PRN Reason: Nausea/Vomiting Pantoprazole Sodium (Protonix Inj) 40 mg IVP DAILY [facility] Last Admin: 02/15/18 17:16 Dose: Not Given - Labs Labs: 02/15/18 07:00 02/15/18 07:00 PT 14.9 SECONDS (9.4-12.5) H 02/12/18 07:40 INR 1.29 02/12/18 07:40 APTT 31.6 Seconds (25.1-36.5) 02/12/18 07:40 - Constitutional Appears: Well, Non-toxic, No Acute Distress - Head Exam Head Exam: ATRAUMATIC, NORMOCEPHALIC - Eye Exam Eye Exam: EOMI - ENT Exam ENT Exam: Mucous Membranes Moist - Respiratory Exam Respiratory Exam: NORMAL BREATHING PATTERN - Cardiovascular Exam Cardiovascular Exam: REGULAR RHYTHM - GI/Abdominal Exam GI & Abdominal Exam: Soft, Tenderness (Appropriate RUQ tenderness). absent: Distended, Guarding - Extremities Exam Extremities Exam: absent: Calf Tenderness, Pedal Edema - Neurological Exam Neurological Exam: Alert, Awake, Oriented x3 - Psychiatric Exam Psychiatric exam: Normal Affect, Normal Mood - Skin Skin Exam: Dry, Intact, Normal Color, Warm Additional comments: dressings in place CDI Assessment and Plan - Assessment and Plan (Free Text) Assessment: 43 yr old male with acute cholecystitis S/p lap cholecystectomy POD 1 Plan: c/w pain control Neurontin 100 TID, Tylenol 975 Q8 c/w zofran PRN continue to monitor drain output f/u CBC repeat labs in AM discussed with Dr. Marietta Ruiz, PGY 1
[2018-02-16 09:29] LABS: BASO # 0.01 K/mm3 (0.0-2.0); BASO % 0.1 % (0.0-3.0); EOS # 0.1 (0.0-0.7); EOS % 0.5 % (1.5-5.0); GRAN # 10.6 (1.4-6.5); GRAN % 84.4 % (50.0-68.0); HEMOGLOBIN 13.9 g/dL (14.0-18.0); LYMPH % 8.1 % (22.0-35.0); MEAN CELL VOLUME 86.4 fl (80.0-105.0); MEAN CORPUSCULAR HEMOGLOBIN 29.5 pg (25.0-35.0); MEAN CORPUSCULAR HGB CONC 34.2 g/dl (31.0-37.0); MONO # 0.9 (0.1-0.6); MONO % 6.9 % (1.0-6.0); RBC 4.71 10^6/uL (3.5-6.1); RED CELL DISTRIBUTION WIDTH 13.1 % (11.5-14.5); WHITE BLOOD COUNT 12.6 10^3/uL (4.5-11.0)
[2018-02-16 09:40] LABS: ALB/GLOB RATIO 0.9 (1.1-1.8); ALBUMIN 3.3 g/dL (3.0-4.8); ALT/SGPT 456 U/L (7-56); AST/SGOT 726 U/L (17-59); BLOOD UREA NITROGEN 10 mg/dL (7-21); CALCIUM 8.5 mg/dL (8.4-10.5); GFR NON-AFRICAN AMERICAN > 60
[2018-02-16] MEDS: Piperacillin/Tazobact 3.375 gm 100 ML IVPB SCH ×2 (11:03→21:08)
[2018-02-16] MEDS: Enoxaparin 40 mg Syringe SC SCH (11:09)
--- NOTE | 2018-02-16 16:37 | CP.PCM.PN ---
<Jf Quiñonez - Last Filed: 02/16/18 16:34> Subjective - Date & Time of Evaluation Date of Evaluation: 02/16/18 Time of Evaluation: 10:00 - Subjective Subjective: Jf Quiñonez PGY-1 Progress Note for Hospitalist Service Patient seen and evaluated at bedside. No acute events reported overnight. POD#1 for lap cristiana. Patient reports residual pain. Patient denies chest pain, palpitations, shortness of breath, leg pain, fevers, nausea, vomiting. Objective - Vital Signs/Intake and Output Vital Signs (last 24 hours): Temp Pulse Resp BP Pulse Ox 98.8 F 62 18 128/75 97 02/16/18 10:49 02/16/18 11:03 02/16/18 10:49 02/16/18 11:03 02/16/18 10:49 Intake and Output: 02/16/18 02/16/18 06:59 18:59 Intake Total 720 Output Total 1745 Balance -1025 - Medications Medications: Current Medications Acetaminophen (Tylenol 325mg Tab) 975 mg PO Q8 [facility] Last Admin: 02/16/18 14:56 Dose: 975 mg Clonidine HCl (Catapres) 0.1 mg PO BID [facility] Last Admin: 02/16/18 11:03 Dose: 0.1 mg Enoxaparin Sodium (Lovenox) 40 mg SC DAILY [facility]; Protocol Last Admin: 02/16/18 11:09 Dose: 40 mg Gabapentin (Neurontin) 100 mg PO TID [facility]; Protocol Last Admin: 02/16/18 14:57 Dose: 100 mg Piperacillin Sod/Tazobactam Sod (Zosyn 3.375 In Ns 100ml) 100 mls @ 25 mls/hr IVPB Q12 [facility]; Protocol Stop: 02/22/18 22:01 Last Admin: 02/16/18 11:03 Dose: 25 mls/hr Lactated Ringer's (Lactated Ringer's) 1,000 mls @ 60 mls/hr IV .[id number] [facility] Last Admin: 02/15/18 22:59 Dose: 60 mls/hr Ketorolac Tromethamine (Toradol) 30 mg IVP Q6H [facility] Last Admin: 02/16/18 11:07 Dose: 30 mg Methadone HCl (Methadone) 5 mg PO Q8H [facility] Last Admin: 02/16/18 08:15 Dose: 5 mg Metoclopramide HCl (Reglan) 10 mg IV ONCE PRN PRN Reason: Nausea/Vomiting Nicotine (Nicoderm Cq) 1 patch TD DAILY [facility] Last Admin: 02/16/18 11:19 Dose: 1 patch Ondansetron HCl (Zofran Inj) 4 mg IVP Q6H PRN PRN Reason: Nausea/Vomiting Pantoprazole Sodium (Protonix Inj) 40 mg IVP DAILY [facility] Last Admin: 02/16/18 11:08 Dose: 40 mg - Labs Labs: 02/16/18 09:20 02/16/18 09:20 PT 14.9 SECONDS (9.4-12.5) H 02/12/18 07:40 INR 1.29 02/12/18 07:40 APTT 31.6 Seconds (25.1-36.5) 02/12/18 07:40 - Additional Findings Additional findings: - Constitutional Appears: Well, Non-toxic, No Acute Distress - Head Exam Head Exam: ATRAUMATIC, NORMAL INSPECTION, NORMOCEPHALIC - Eye Exam Eye Exam: EOMI, PERRL - Respiratory Exam Respiratory Exam: Clear to Ausculation Bilateral, NORMAL BREATHING PATTERN - Cardiovascular Exam Cardiovascular Exam: REGULAR RHYTHM - GI/Abdominal Exam GI & Abdominal Exam: Soft, Tenderness (RUQ, RLQ), Normal Bowel Sounds. Dressings c/d/i. R sided drain draining serosanguinos fluid. 75 mm Cc - Extremities Exam Extremities Exam: Full ROM - Neurological Exam Neurological Exam: Alert, Awake, CN II-XII Intact Assessment and Plan - Assessment and Plan (Free Text) Assessment: 43 year old male with past medical history of bipolar I disorder and DVT of left leg presents with 2 day history of abdominal pain in right upper and lower quadrant that radiates to the side of the back with nonbloody vomiting and diarrhea. Patient was found to have choledocholithiasis and had ERCP and was found to have cholecystitis. POD #1 lap cristiana. Plan: POD#1 Lap cristiana -CTAP: cholecystitis vs. cholelithiasis -Abdominal ultrasound: cholelithiasis/trace pericholecystic fluid without gallbladder wall edema or positive sonographic Lemon's sign -MRCP: choledocholithaisis is difficult to exclude the distal CBD including a 2 mm distal CBD calculus. Limited pericholecystic fluid is seen with a distended gallbladder and numerous dependent gallstones in the gallbadder. Cholecystitis is not completely excluded but is the pattern more compatible with sonographic appearance than previous CT -EGD results: chronic gastritis, erosive gastropath, nonbleeding duodenal ulcers with clean ulcer base, multiple stones visualized endoscopically in the gallbladder. Dilation of CBD measured up to 9mm. -ERCP: choledocholithiasis found. Complete removal was accomplished by biliary sphincterotomy and balloon extraction. Biliary tree was swept. Contrast holdup was noticed in view of sepsis stent was placed good biliary drainage. One plastic stent was placed into common bile duct. -GI recommends repeat EGD for evaluation of ulcers and ERCP for removal of stent, f/u cristiana report 02/15 -As per GI, patient was educated regarding the important of following up with GI outpatient to have stent removed. -Patient reports improved but not fully relieved pain following ERCP. -Leukocytosis improved to 12.6 today -Blood culture and body fluid culture shows no growth at this time. -Unremarkable lipase and procalcitonin. -Protonix started due to patient's gastritis found on EGD. -Toradol 30 mg Q6PRN for pain. -Patient is currently on a regular diet. -GI, Dr. Chun consulted for recommendations. He recommended starting patient on zosyn. Patient is now on zosyn. -Dr. Mcmanus consulted for surgery recommendations. Neurontin, Tylenol, Zofran. Drain in place. -ID, Dr. Vieira, consulted for recommendations. Follow recommendations. Hepatitis C -Hepatitis C antibody reactive -Will order hepatitis C RNA and genotype for treating outpatient. -HIV 4th gen: negative Hypokalemia- resolved -K: 3.6 -Replete as necessary Hypophosphatemia- resolved -PO4: 3.3 -Replete as necessary Elevated ALT-resolved -ALT: 38 -Unremarkable AST, ALP, bilirubin Polysubstance abuse -UDS: positive for opiates, barbiturates, cocaine on first UDS -UDS: positive for benzodiazepines on last UDS -Patient has been educated regarding restricting visitors due to new substances appearing in patient's UDS. -Heroin, cocaine, benzodiazepines, barbiturates cessation suggested -Methadone 10 mg Q8H for withdrawal. -Continue with clonidine to decrease sympathetic response. History of bipolar -Not currently on any medication History of DVT with left leg thrombectomy -patient unsure of exact year -not currently on anticoagulation DVT prophylaxis: SCD GI prophylaxis: protonix Patient seen, case reviewed and plan approved by Dr. Junior. Jf Quiñonez, PGY-1 <Latrice Junior - Last Filed: 02/18/18 08:29> Objective - Vital Signs/Intake and Output Vital Signs (last 24 hours): Temp Pulse Resp BP Pulse Ox 98.7 F 52 L 18 145/90 95 02/17/18 06:00 02/17/18 10:45 02/17/18 06:00 02/17/18 10:45 02/17/18 06:00 Intake and Output: 02/18/18 02/18/18 06:59 18:59 Output Total 75 Balance -75 - Medications Medications: Current Medications Clonidine HCl (Catapres) 0.1 mg PO BID [facility] Last Admin: 02/17/18 19:05 Dose: 0.1 mg Enoxaparin Sodium (Lovenox) 40 mg SC DAILY [facility]; Protocol Last Admin: 02/17/18 10:43 Dose: 40 mg Gabapentin (Neurontin) 100 mg PO TID [facility]; Protocol Last Admin: 02/17/18 19:04 Dose: 100 mg Piperacillin Sod/Tazobactam Sod (Zosyn 3.375 In Ns 100ml) 100 mls @ 25 mls/hr IVPB Q12 [facility]; Protocol Stop: 02/22/18 22:01 Last Admin: 02/16/18 21:08 Dose: 25 mls/hr Ketorolac Tromethamine (Toradol) 30 mg IVP Q6H [facility] Last Admin: 02/18/18 03:50 Dose: 30 mg Methadone HCl (Methadone) 5 mg PO Q8H [facility] Last Admin: 02/18/18 02:00 Dose: 5 mg Nicotine (Nicoderm Cq) 1 patch TD DAILY [facility] Last Admin: 02/17/18 10:46 Dose: 1 patch Pantoprazole Sodium (Protonix Ec Tab) 40 mg PO ACB [facility] - Labs Labs: 02/18/18 06:20 02/18/18 06:20 PT 14.9 SECONDS (9.4-12.5) H 12/12/18 07:40 INR 1.29 02/12/18 07:40 APTT 31.6 Seconds (25.1-36.5) 02/12/18 07:40 Attending/Attestation - Attestation I have personally seen and examined this patient.: Yes I have fully participated in the care of the patient.: Yes I have reviewed all pertinent clinical information, including history, physical exam and plan: Yes Notes (Text): 02/18/18 08:28 Medical record note made by the resident after discussion with my direction and input after the patient was personally seen and examined by me. I have reviewed the chart and agree that the record accurately reflects by personal performance of the history, physical exam, data review, and medical decision-making, in the course for the patient. I have also personally directed the plan of care.
--- NOTE | 2018-02-16 17:38 | CP.PCM.PN ---
Subjective - Date & Time of Evaluation Date of Evaluation: 02/15/18 Time of Evaluation: 11:00 - Subjective Subjective: Afebrile, comfortable, but still with abdominal soreness, had surgery yesterday. Objective - Vital Signs/Intake and Output Vital Signs (last 24 hours): Temp Pulse Resp BP Pulse Ox 99.7 F H 62 20 137/82 97 02/14/18 06:00 02/14/18 17:21 02/14/18 06:00 02/14/18 17:21 02/14/18 06:00 - Medications Medications: Current Medications Clonidine HCl (Catapres) 0.1 mg PO BID [facility] Last Admin: 02/14/18 17:21 Dose: 0.1 mg Sodium Chloride (Sodium Chloride 0.9%) 1,000 mls @ 150 mls/hr IV .Q6H40M [facility] Last Admin: 02/13/18 05:24 Dose: 150 mls/hr Piperacillin Sod/Tazobactam Sod (Zosyn 3.375 In Ns 100ml) 100 mls @ 25 mls/hr IVPB Q12 [facility]; Protocol Stop: 02/22/18 22:01 Last Admin: 02/14/18 09:29 Dose: 25 mls/hr Lactated Ringer's (Lactated Ringer's) 1,000 mls @ 125 mls/hr IV .Q8H [facility] Last Admin: 02/14/18 17:22 Dose: 125 mls/hr Ketorolac Tromethamine (Toradol) 30 mg IVP Q6 PRN PRN Reason: Pain, moderate (4-7) Methadone HCl (Methadone) 5 mg PO Q8H [facility] Last Admin: 02/14/18 16:02 Dose: 5 mg Morphine Sulfate (Morphine) 2 mg IVP Q4H PRN PRN Reason: Pain, severe (8-10) Last Admin: 02/14/18 06:42 Dose: 2 mg Ondansetron HCl (Zofran Inj) 4 mg IVP Q6H PRN PRN Reason: Nausea/Vomiting Pantoprazole Sodium (Protonix Inj) 40 mg IVP DAILY [facility] Last Admin: 02/14/18 09:33 Dose: 40 mg - Labs Labs: 02/14/18 06:30 02/14/18 06:30 PT 14.9 SECONDS (9.4-12.5) H 02/12/18 07:40 INR 1.29 02/12/18 07:40 APTT 31.6 Seconds (25.1-36.5) 02/12/18 07:40 - Constitutional Appears: Chronically Ill - Head Exam Head Exam: NORMAL INSPECTION - Respiratory Exam Respiratory Exam: Decreased Breath Sounds - Cardiovascular Exam Cardiovascular Exam: +S1, +S2 - GI/Abdominal Exam GI & Abdominal Exam: Soft. absent: Tenderness Assessment and Plan - Assessment and Plan (Free Text) Plan: Assessment Sepsis due to acute cholecystitis S/P ERCP for choledocholelithiasis with CBD stent placement, S/P lap cholecystectomy POD #1 history of DVT HTN bipolar disorder depression history of alcohol abuse Plan Continue Zosyn follow up OR cultures - phlegmon was seen in the gallbladder will continue to monitor clinically
--- NOTE | 2018-02-17 05:37 | OP ---
PROCEDURE DATE: 02/15/2018 PREOPERATIVE DIAGNOSES: 1. Acute on chronic cholecystitis with cholelithiasis. 2. Choledocholithiasis. 3. Intravenous drug abuse. 4. Morbid obesity. POSTOPERATIVE DIAGNOSES: 1. Acute phlegmonous cholecystitis with cholelithiasis. 2. Hydrops of the gallbladder. 3. Dilated common bile duct with common bile duct stones, status post endoscopic retrograde cholangiopancreatography. 4. Extensive fluid collection in the right upper quadrant and perihepatic area. PROCEDURES DONE: 1. Laparoscopic cholecystectomy. 2. Laparoscopic drainage of hydrops of the gallbladder. 3. Laparoscopic extensive adhesiolysis and lysis of adhesions. SURGEON: Sea Mcmanus MD ADVISORY INTERNSHIP: Bud Rodrigues DO, PGY-2 resident ANESTHESIA: General endotracheal tube anesthesia. ESTIMATED BLOOD LOSS: Around 100 mL. DRAINS: A 19-Hebrew Med drain was placed. COMPLICATIONS: None. INTRAOPERATIVE FINDINGS: The patient had acute on chronic phlegmonous cholecystitis with large phlegmon of omentum colon as well as the gallbladder in the right upper quadrant. The patient had hydrops of the gallbladder with cirrhotic liver. The patient had perihepatic as well as pericholecystic fluid collection. The patient had extensive bleeding from liver bed due to the cirrhosis during the dissection of the gallbladder from the liver. It took approximately 60 to 80 minutes extra for the routine procedure. DESCRIPTION OF PROCEDURE: On intraoperative steps, this is a 43-year-old male with morbid obesity and IV drug abuse. The patient was admitted with acute on chronic cholecystitis with CBD stones, and the patient underwent ERCP. After that, the patient was consented for the laparoscopic cholecystectomy, possible open. Brought to the OR, placed supine on the operating table. After induction of the anesthesia, the abdomen was prepped and draped in the usual sterile fashion. A supraumbilical transverse incision was made. After incising the skin and subcutaneous tissue and fascia, the Enma port was placed and pneumo was created. Another 12-mm port was placed in the midline below costal margin, and two 5-mm ports were placed in the right upper quadrant. The patient found to have large segment of omentum as well as colon attached to the gallbladder and the liver. First, extensive lysis of adhesion was done. The gallbladder was identified. Now, the patient has a large thickened, edematous, phlegmonous gallbladder. The gallbladder was aspirated. The patient had a clear fluid. After complete drainage of the hydrops of the gallbladder as well as pericholecystic and perihepatic fluid collection, the gallbladder was retracted cranially. The dissection was carried down in the Calot's triangle. The common bile duct was firmly attached to the gallbladder. With blunt and sharp dissections, the CBD was dissected off the gallbladder. 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 The cystic duct and cystic artery were identified. A top down approach was done, and critical view of the safety was also identified. The cystic duct was clipped at three places and cut in between two clips nearby gallbladder. The cystic artery was also clipped, and the gallbladder was dissected from the gallbladder fossa. Due to the cirrhosis of the liver, the patient had extensive bleeding from the gallbladder fossa that was controlled. The gallbladder was dissected free. The gallbladder was taken out through the umbilical port site and sent off the table for the pathology. The umbilical incision was extended due to the large size of the bladder, and it was closed in multiple layers. After proper hemostasis was achieved, a 19-Hebrew Med drain was placed before closing the umbilical wound. All the port sites were closed in two layers, subcutaneous with 2-0 Vicryl skin with 4-0 Monocryl, and a dry sterile dressing was applied. The patient tolerated the procedure well. Count of instrument and gauze was correct. There was no apparent complication. The patient was extubated in OR and sent to the postanesthesia care unit in stable condition. Sea Mcmanus MD
[2018-02-17 07:07] LABS: BASO # 0.02 K/mm3 (0.0-2.0); BASO % 0.2 % (0.0-3.0); EOS # 0.3 (0.0-0.7); EOS % 2.9 % (1.5-5.0); GRAN # 6.12 (1.4-6.5); GRAN % 70.4 % (50.0-68.0); HEMOGLOBIN 12.9 g/dL (14.0-18.0); LYMPH # 1.3 (1.2-3.4); LYMPH % 15.4 % (22.0-35.0); MEAN CELL VOLUME 85.9 fl (80.0-105.0); MEAN CORPUSCULAR HEMOGLOBIN 28.9 pg (25.0-35.0); MEAN CORPUSCULAR HGB CONC 33.7 g/dl (31.0-37.0); MEAN PLATELET VOLUME 10.2 fl (7.0-11.0); MONO % 11.1 % (1.0-6.0); RBC 4.46 10^6/uL (3.5-6.1); RED CELL DISTRIBUTION WIDTH 13.3 % (11.5-14.5); WHITE BLOOD COUNT 8.7 10^3/uL (4.5-11.0)
[2018-02-17 07:17] LABS: ALB/GLOB RATIO 0.8 (1.1-1.8); ALT/SGPT 827 U/L (7-56); AST/SGOT > 750 U/L (17-59); BLOOD UREA NITROGEN 13 mg/dL (7-21); CALCIUM 8.5 mg/dL (8.4-10.5); GFR NON-AFRICAN AMERICAN > 60
[2018-02-17 07:58] VITALS: BP 145/90; PULSE 52
--- NOTE | 2018-02-17 08:14 | CP.PCM.PN ---
Subjective - Date & Time of Evaluation Date of Evaluation: 02/17/18 Time of Evaluation: 08:10 - Subjective Subjective: Surgery Progress note- Dr. Mcmanus Patient seen and examined at bedside. improving clinically. no new complaints. tolerating regular diet, denies nausea, vomiting, voiding freely. Med drain 60cc serosang (more serous than yesterday). +OOB and ambulating. Of note patient LFTs had a significant increase, T.bili normal. Objective - Vital Signs/Intake and Output Vital Signs (last 24 hours): Temp Pulse Resp BP Pulse Ox 98.7 F 52 L 18 145/90 95 02/17/18 06:00 02/17/18 06:00 02/17/18 06:00 02/17/18 06:00 02/17/18 06:00 Intake and Output: 02/17/18 02/17/18 06:59 18:59 Intake Total 600 Balance 600 - Medications Medications: Current Medications Clonidine HCl (Catapres) 0.1 mg PO BID [facility] Last Admin: 02/16/18 18:34 Dose: 0.1 mg Enoxaparin Sodium (Lovenox) 40 mg SC DAILY [facility]; Protocol Last Admin: 02/16/18 11:09 Dose: 40 mg Gabapentin (Neurontin) 100 mg PO TID [facility]; Protocol Last Admin: 02/16/18 18:35 Dose: 100 mg Piperacillin Sod/Tazobactam Sod (Zosyn 3.375 In Ns 100ml) 100 mls @ 25 mls/hr IVPB Q12 [facility]; Protocol Stop: 02/22/18 22:01 Last Admin: 02/16/18 21:08 Dose: 25 mls/hr Ketorolac Tromethamine (Toradol) 30 mg IVP Q6H [facility] Last Admin: 02/17/18 04:04 Dose: 30 mg Methadone HCl (Methadone) 5 mg PO Q8H [facility] Last Admin: 02/16/18 23:14 Dose: 5 mg Metoclopramide HCl (Reglan) 10 mg IV ONCE PRN PRN Reason: Nausea/Vomiting Nicotine (Nicoderm Cq) 1 patch TD DAILY [facility] Last Admin: 02/16/18 11:19 Dose: 1 patch Pantoprazole Sodium (Protonix Inj) 40 mg IVP DAILY [facility] Last Admin: 02/16/18 11:08 Dose: 40 mg - Labs Labs: 12/17/18 06:30 02/17/18 06:30 PT 14.9 SECONDS (9.4-12.5) H 02/12/18 07:40 INR 1.29 02/12/18 07:40 APTT 31.6 Seconds (25.1-36.5) 02/12/18 07:40 - Constitutional Appears: Non-toxic, No Acute Distress - Head Exam Head Exam: ATRAUMATIC - Eye Exam Eye Exam: EOMI. absent: Scleral icterus - ENT Exam ENT Exam: Mucous Membranes Moist - Respiratory Exam Respiratory Exam: NORMAL BREATHING PATTERN. absent: Accessory Muscle Use, Respiratory Distress - Cardiovascular Exam Cardiovascular Exam: REGULAR RHYTHM. absent: Bradycardia, Tachycardia - GI/Abdominal Exam GI & Abdominal Exam: Soft. absent: Distended, Firm, Guarding, Rigid, Tenderness Additional comments: RUQ Med 60cc serosang fluid - Extremities Exam Extremities Exam: absent: Calf Tenderness - Neurological Exam Neurological Exam: Alert, Awake, Oriented x3 - Psychiatric Exam Psychiatric exam: Normal Affect - Skin Skin Exam: Intact, Warm Assessment and Plan - Assessment and Plan (Free Text) Assessment: 43M s/p Lap cristiana POD#2 LFT increased from baseline Plan: - continue diet - monitor drain output - hold all hepato-toxic medications - repeat labs - further recs per Dr. Mcmanus surgical attending PGY2
--- NOTE | 2018-02-17 09:47 | US ---
Date of service: 02/17/2018 HISTORY: Attention to liverelevated LFT s/p cholecystectomy COMPARISON: Complete abdomen ultrasound 02/11/2018. TECHNIQUE: Sonographic evaluation of the right upper quadrant of the abdomen. FINDINGS: LIVER: Measures 22.5 cm in length. Normal echogenicity of the liver parenchyma, however, the right lobe liver extends beyond lower pole right kidney and wraps around the proximal portion of the lower pole and appears quite widened at that level suggesting hepatomegaly.. No mass. No intrahepatic bile duct dilatation. Normal directional portal venous blood flow. GALLBLADDER: Prior cholecystectomy. Normal caliber CBD a 4.2 mm. COMMON BILE DUCT: Measures 4.2 mm. No stones. No dilatation. PANCREAS: Pancreas completely obscured by overlying bowel gas. RIGHT KIDNEY: Measures 12.8 cm in length. Normal echogenicity. No calculus, mass, or hydronephrosis. AORTA: No aneurysmal dilatation. IVC: Unremarkable. OTHER FINDINGS: None . IMPRESSION: Hepatomegaly. No sonographic evidence of biliary tree dilatation. Prior cholecystectomy now evident. Pancreas completely obscured by overlying bowel gas with remainder the limited abdomen ultrasound unremarkable otherwise.
[2018-02-17] MEDS: Enoxaparin 40 mg Syringe SC SCH (10:43)
--- NOTE | 2018-02-17 13:34 | CP.PCM.PN ---
Subjective - Date & Time of Evaluation Date of Evaluation: 02/17/18 Time of Evaluation: 09:05 - Subjective Subjective: Patient states he is eating better, no fevers, abdominal pain is better. Objective - Vital Signs/Intake and Output Vital Signs (last 24 hours): Temp Pulse Resp BP Pulse Ox 98.8 F 62 18 128/75 97 02/16/18 10:49 02/16/18 11:03 02/16/18 10:49 02/16/18 11:03 02/16/18 10:49 Intake and Output: 02/16/18 02/16/18 06:59 18:59 Intake Total 720 Output Total 1745 Balance -1025 - Medications Medications: Current Medications Acetaminophen (Tylenol 325mg Tab) 975 mg PO Q8 [facility] Last Admin: 02/16/18 14:56 Dose: 975 mg Clonidine HCl (Catapres) 0.1 mg PO BID [facility] Last Admin: 02/16/18 11:03 Dose: 0.1 mg Enoxaparin Sodium (Lovenox) 40 mg SC DAILY [facility]; Protocol Last Admin: 02/16/18 11:09 Dose: 40 mg Gabapentin (Neurontin) 100 mg PO TID [facility]; Protocol Last Admin: 02/16/18 14:57 Dose: 100 mg Piperacillin Sod/Tazobactam Sod (Zosyn 3.375 In Ns 100ml) 100 mls @ 25 mls/hr IVPB Q12 [facility]; Protocol Stop: 02/22/18 22:01 Last Admin: 02/16/18 11:03 Dose: 25 mls/hr Lactated Ringer's (Lactated Ringer's) 1,000 mls @ 60 mls/hr IV .[id number] [facility] Last Admin: 02/15/18 22:59 Dose: 60 mls/hr Ketorolac Tromethamine (Toradol) 30 mg IVP Q6H [facility] Last Admin: 02/16/18 11:07 Dose: 30 mg Methadone HCl (Methadone) 5 mg PO Q8H [facility] Last Admin: 02/16/18 16:00 Dose: Not Given Metoclopramide HCl (Reglan) 10 mg IV ONCE PRN PRN Reason: Nausea/Vomiting Nicotine (Nicoderm Cq) 1 patch TD DAILY [facility] Last Admin: 02/16/18 11:19 Dose: 1 patch Ondansetron HCl (Zofran Inj) 4 mg IVP Q6H PRN PRN Reason: Nausea/Vomiting Pantoprazole Sodium (Protonix Inj) 40 mg IVP DAILY [facility] Last Admin: 02/16/18 11:08 Dose: 40 mg - Labs Labs: 02/16/18 09:20 02/16/18 09:20 PT 14.9 SECONDS (9.4-12.5) H 02/12/18 07:40 INR 1.29 02/12/18 07:40 APTT 31.6 Seconds (25.1-36.5) 02/12/18 07:40 - Constitutional Appears: Chronically Ill - Head Exam Head Exam: NORMAL INSPECTION - Respiratory Exam Respiratory Exam: Decreased Breath Sounds - Cardiovascular Exam Cardiovascular Exam: +S1, +S2 - GI/Abdominal Exam GI & Abdominal Exam: Soft. absent: Tenderness Assessment and Plan - Assessment and Plan (Free Text) Plan: Assessment Sepsis due to acute cholecystitis S/P ERCP for choledocholelithiasis with CBD stent placement, S/P lap cholecystectomy POD #2 sudden onset transamintis, etiology unclear history of DVT HTN bipolar disorder depression history of alcohol abuse Plan will hold Zosyn for now since AST, ALT are elevated follow up OR cultures - phlegmon was seen in the gallbladder will continue to monitor clinically discussed with Dr. Junior
--- NOTE | 2018-02-17 14:09 | CP.PCM.PN ---
<Karen Rosen - Last Filed: 02/17/18 14:05> Subjective - Date & Time of Evaluation Date of Evaluation: 02/17/18 Time of Evaluation: 11:20 - Subjective Subjective: Karen Rosen PGY1 Hospital Progress Note Patient seen and examined at bedside this morning. No acute events overnight. LFT's worsened today, will switch antibiotics. Possible discharge tomorrow if LFT's downtrending. Liver US ordered. Patient has no complaints today. Objective - Vital Signs/Intake and Output Vital Signs (last 24 hours): Temp Pulse Resp BP Pulse Ox 98.7 F 52 L 18 145/90 95 02/17/18 06:00 02/17/18 10:45 02/17/18 06:00 02/17/18 10:45 02/17/18 06:00 Intake and Output: 02/17/18 02/17/18 06:59 18:59 Intake Total 600 Balance 600 - Medications Medications: Current Medications Clonidine HCl (Catapres) 0.1 mg PO BID [facility] Last Admin: 02/17/18 10:45 Dose: 0.1 mg Enoxaparin Sodium (Lovenox) 40 mg SC DAILY [facility]; Protocol Last Admin: 02/17/18 10:43 Dose: 40 mg Gabapentin (Neurontin) 100 mg PO TID [facility]; Protocol Last Admin: 02/17/18 10:46 Dose: 100 mg Piperacillin Sod/Tazobactam Sod (Zosyn 3.375 In Ns 100ml) 100 mls @ 25 mls/hr IVPB Q12 [facility]; Protocol Stop: 02/22/18 22:01 Last Admin: 02/16/18 21:08 Dose: 25 mls/hr Ketorolac Tromethamine (Toradol) 30 mg IVP Q6H [facility] Last Admin: 02/17/18 10:46 Dose: 30 mg Methadone HCl (Methadone) 5 mg PO Q8H [facility] Last Admin: 02/17/18 10:44 Dose: 5 mg Nicotine (Nicoderm Cq) 1 patch TD DAILY [facility] Last Admin: 02/17/18 10:46 Dose: 1 patch Pantoprazole Sodium (Protonix Ec Tab) 40 mg PO ACB [facility] - Labs Labs: 02/17/18 06:30 02/17/18 06:30 PT 14.9 SECONDS (9.4-12.5) H 02/12/18 07:40 INR 1.29 02/12/18 07:40 APTT 31.6 Seconds (25.1-36.5) 02/12/18 07:40 - Additional Findings Additional findings: - Constitutional Appears: Well, Non-toxic, No Acute Distress - Head Exam Head Exam: ATRAUMATIC, NORMAL INSPECTION, NORMOCEPHALIC - Eye Exam Eye Exam: EOMI, PERRL - Respiratory Exam Respiratory Exam: Clear to Ausculation Bilateral, NORMAL BREATHING PATTERN - Cardiovascular Exam Cardiovascular Exam: REGULAR RHYTHM, +S1 +S2 - GI/Abdominal Exam GI & Abdominal Exam: Soft, minimal tenderness in RLQ to deep palpation, Normal Bowel Sounds. Dressings c/d/i. R sided drain draining serosanguinos fluid. No overt blood noted in drain. - Extremities Exam Extremities Exam: Full ROM - Neurological Exam Neurological Exam: Alert, Awake, CN II-XII Intact Assessment and Plan - Assessment and Plan (Free Text) Assessment: 43 year old male with past medical history of bipolar I disorder and DVT of left leg presents with 2 day history of abdominal pain in right upper and lower quadrant that radiates to the side of the back with nonbloody vomiting and diarrhea. Patient was found to have choledocholithiasis. Plan: Choledocholithaisis -s/p lap cristiana day 2 -MRCP: choledocholithaisis is difficult to exclude the distal CBD including a 2 mm distal CBD calculus. Limited pericholecystic fluid is seen with a distended gallbladder and numerous dependent gallstones in the gallbadder. Cholecystitis is not completely excluded but is the pattern more compatible with sonographic appearance than previous CT -EGD results: chronic gastritis, erosive gastropath, nonbleeding duodenal ulcers with clean ulcer base, multiple stones visualized endoscopically in the gallbladder. Dilation of CBD measured up to 9mm. -ERCP: choledocholithiasis found. Complete removal was accomplished by biliary sphincterotomy and balloon extraction. Biliary tree was swept. Contrast holdup was noticed in view of sepsis stent was placed good biliary drainage. One plastic stent was placed into common bile duct. -As per GI, patient was educated regarding the important of following up with GI outpatient to have stent removed -blood cx are negative x5 days -GI, Dr. Chun consulted -Dr. Mcmanus consulted for surgery -ID, Dr. Vieira, consulted Transaminitis -consider zosyn side effect vs shock liver vs direct liver trauma from surgery -zosyn on hold, will monitor LFT's. If downtrending tomorrow, possible discharge -liver US is unremarkable for acute process Hepatitis C -Hepatitis C antibody reactive -Will order hepatitis C RNA and genotype for treating outpatient. -HIV 4th gen: negative Hypokalemia -resolved -monitor Hypophosphatemia -resolved -monitor Polysubstance abuse -UDS: positive for opiates, barbiturates, cocaine on first UDS -Methadone 10 mg Q8H for withdrawal. -Continue with clonidine to decrease sympathetic response. History of bipolar -Not currently on any medication History of DVT with left leg thrombectomy -patient unsure of exact year -not currently on anticoagulation PPX/Diet -SCD and protonix -HHD Patient seen and case reviewed with attending, Dr. Junior. <Latrice Junior - Last Filed: 02/18/18 08:27> Objective - Vital Signs/Intake and Output Vital Signs (last 24 hours): Temp Pulse Resp BP Pulse Ox 98.7 F 52 L 18 145/90 95 02/17/18 06:00 02/17/18 10:45 02/17/18 06:00 02/17/18 10:45 02/17/18 06:00 Intake and Output: 02/18/18 02/18/18 06:59 18:59 Output Total 75 Balance -75 - Medications Medications: Current Medications Clonidine HCl (Catapres) 0.1 mg PO BID [facility] Last Admin: 02/17/18 19:05 Dose: 0.1 mg Enoxaparin Sodium (Lovenox) 40 mg SC DAILY [facility]; Protocol Last Admin: 02/17/18 10:43 Dose: 40 mg Gabapentin (Neurontin) 100 mg PO TID [facility]; Protocol Last Admin: 02/17/18 19:04 Dose: 100 mg Piperacillin Sod/Tazobactam Sod (Zosyn 3.375 In Ns 100ml) 100 mls @ 25 mls/hr IVPB Q12 [facility]; Protocol Stop: 02/22/18 22:01 Last Admin: 02/16/18 21:08 Dose: 25 mls/hr Ketorolac Tromethamine (Toradol) 30 mg IVP Q6H [facility] Last Admin: 02/18/18 03:50 Dose: 30 mg Methadone HCl (Methadone) 5 mg PO Q8H [facility] Last Admin: 02/18/18 02:00 Dose: 5 mg Nicotine (Nicoderm Cq) 1 patch TD DAILY [facility] Last Admin: 02/17/18 10:46 Dose: 1 patch Pantoprazole Sodium (Protonix Ec Tab) 40 mg PO ACB [facility] - Labs Labs: 02/18/18 06:20 02/18/18 06:20 PT 14.9 SECONDS (9.4-12.5) H 02/12/18 07:40 INR 1.29 02/12/18 07:40 APTT 31.6 Seconds (25.1-36.5) 02/12/18 07:40 Attending/Attestation - Attestation I have personally seen and examined this patient.: Yes I have fully participated in the care of the patient.: Yes I have reviewed all pertinent clinical information, including history, physical exam and plan: Yes Notes (Text): 02/18/18 08:25 Medical record note made by the resident after discussion with my direction and input after the patient was personally seen and examined by me. I have reviewed the chart and agree that the record accurately reflects by personal performance of the history, physical exam, data review, and medical decision-making, in the course for the patient. I have also personally directed the plan of care. 43 year old male with PMH of Hepatiti C, of bipolar I disorder and DVT of left leg presents with 2 day history of abdominal pain in right upper and lower quadrant that radiates to the side of the back with nonblood vomiting and diarrhea.MRCP showed choledocholithaisis is difficult to exclude the distal CBD including a 2 mm distal CBD calculus. Limited pericholecystic fluid is seen with a distended gallbladder and numerous dependent gallstones in the gallbadder. Cholecystitis was not completely excluded but is the pattern more compatible with sonographic appearance than previous CT ).Patient was evaluated by GI and surgery and underwent EGD and ERCP. -EGD showed chronic gastritis, erosive gastritis , nonbleeding duodenal ulcers with clean ulcer base, multiple stones visualized endoscopically in the gallbladder. Dilation of CBD measured up to 9mm. -ERCP showed (choledocholithiasis found. Complete removal was accomplished by biliary sphincterotomy and balloon extraction. Biliary tree was swept. Contrast holdup was noticed in view of sepsis stent was placed good biliary drainage. One stent was placed into common bile duct) Patient is s/p lap cholecystectomy day 2, feeling better, tolerating food. He is found to have elevated transaminase, etiology unclear, could be medication /transient hypotension.Zosyn is discontinued. We will monitor. Management plan was discussed in detail with patient. Education was provided.
[2018-02-18 06:51] LABS: BASO # 0.04 K/mm3 (0.0-2.0); BASO % 0.5 % (0.0-3.0); EOS # 0.3 (0.0-0.7); EOS % 3.9 % (1.5-5.0); GRAN # 5.51 (1.4-6.5); GRAN % 67.1 % (50.0-68.0); HEMOGLOBIN 13.2 g/dL (14.0-18.0); LYMPH # 1.5 (1.2-3.4); LYMPH % 18.8 % (22.0-35.0); MEAN CELL VOLUME 85.6 fl (80.0-105.0); MEAN CORPUSCULAR HEMOGLOBIN 28.8 pg (25.0-35.0); MEAN CORPUSCULAR HGB CONC 33.7 g/dl (31.0-37.0); MEAN PLATELET VOLUME 10.1 fl (7.0-11.0); MONO # 0.8 (0.1-0.6); MONO % 9.7 % (1.0-6.0); RBC 4.58 10^6/uL (3.5-6.1); RED CELL DISTRIBUTION WIDTH 13.2 % (11.5-14.5); WHITE BLOOD COUNT 8.2 10^3/uL (4.5-11.0)
[2018-02-18] MEDS ORDERED: Pantoprazole 40 mg EC Tab PO SCH (07:30)
--- NOTE | 2018-02-18 07:47 | CP.PCM.PN ---
Subjective - Date & Time of Evaluation Date of Evaluation: 02/18/18 Time of Evaluation: 07:46 - Subjective Subjective: Surgery Progress note- Dr. Mcmanus Patient seen and examined at bedside. No new complaints. tolerating regular diet. + OOB and ambulating. - nausea, vomiting, diarrhea, fevers, chills Objective - Vital Signs/Intake and Output Vital Signs (last 24 hours): Temp Pulse Resp BP Pulse Ox 98.7 F 52 L 18 145/90 95 02/17/18 06:00 02/17/18 10:45 02/17/18 06:00 02/17/18 10:45 02/17/18 06:00 Intake and Output: 02/18/18 02/18/18 06:59 18:59 Output Total 75 Balance -75 - Medications Medications: Current Medications Clonidine HCl (Catapres) 0.1 mg PO BID [facility] Last Admin: 02/17/18 19:05 Dose: 0.1 mg Enoxaparin Sodium (Lovenox) 40 mg SC DAILY [facility]; Protocol Last Admin: 02/17/18 10:43 Dose: 40 mg Gabapentin (Neurontin) 100 mg PO TID [facility]; Protocol Last Admin: 02/17/18 19:04 Dose: 100 mg Piperacillin Sod/Tazobactam Sod (Zosyn 3.375 In Ns 100ml) 100 mls @ 25 mls/hr IVPB Q12 [facility]; Protocol Stop: 02/22/18 22:01 Last Admin: 02/16/18 21:08 Dose: 25 mls/hr Ketorolac Tromethamine (Toradol) 30 mg IVP Q6H [facility] Last Admin: 02/18/18 03:50 Dose: 30 mg Methadone HCl (Methadone) 5 mg PO Q8H [facility] Last Admin: 02/18/18 02:00 Dose: 5 mg Nicotine (Nicoderm Cq) 1 patch TD DAILY [facility] Last Admin: 02/17/18 10:46 Dose: 1 patch Pantoprazole Sodium (Protonix Ec Tab) 40 mg PO ACB [facility] - Labs Labs: 02/18/18 06:20 02/17/18 06:30 PT 14.9 SECONDS (9.4-12.5) H 02/12/18 07:40 INR 1.29 02/12/18 07:40 APTT 31.6 Seconds (25.1-36.5) 02/12/18 07:40 - Constitutional Appears: Non-toxic, No Acute Distress - Head Exam Head Exam: ATRAUMATIC - Eye Exam Eye Exam: EOMI. absent: Scleral icterus - ENT Exam ENT Exam: Mucous Membranes Moist - Respiratory Exam Respiratory Exam: NORMAL BREATHING PATTERN. absent: Accessory Muscle Use, Respiratory Distress - Cardiovascular Exam Cardiovascular Exam: +S1, +S2. absent: Bradycardia, Tachycardia - GI/Abdominal Exam GI & Abdominal Exam: Soft. absent: Distended, Firm, Guarding, Rigid, Tenderness Additional comments: Incisions C/D/I - Extremities Exam Extremities Exam: absent: Calf Tenderness - Neurological Exam Neurological Exam: Alert, Awake, Oriented x3 - Psychiatric Exam Psychiatric exam: Normal Affect - Skin Skin Exam: Intact, Warm Assessment and Plan - Assessment and Plan (Free Text) Assessment: 43M s/p Lap Yolanda POD#3 Plan: - diet as tolerated - follow up in 1 week in clinic w/ Dr. Mcmanus - cleared for discharge from a surgical stand point - recommend follow up w/ GI for eventual stent removal - discussed w/ Dr. Mcmanus surgical attending PGY2
[2018-02-18 07:49] LABS: ALB/GLOB RATIO 0.9 (1.1-1.8); ALBUMIN 3.4 g/dL (3.0-4.8); ALT/SGPT 640 U/L (7-56); AST/SGOT 351 U/L (17-59); BLOOD UREA NITROGEN 14 mg/dL (7-21); CALCIUM 8.8 mg/dL (8.4-10.5); GFR NON-AFRICAN AMERICAN > 60
[2018-02-18 09:44] VITALS: RESP 20; TEMP 98.3; O2SAT 97
--- NOTE | 2018-02-18 09:54 | RAD ---
Date of service: 02/18/2018 HISTORY: stent placement COMPARISON: None available. FINDINGS: BOWEL: Normal. No obstruction. No free air. Moderate constipation BONES: Normal. OTHER FINDINGS: None. IMPRESSION: The common duct stent appears to be in satisfactory position.
[2018-02-18] MEDS: Enoxaparin 40 mg Syringe SC SCH (10:06)
--- NOTE | 2018-02-18 14:41 | CP.PCM.PN ---
Subjective - Date & Time of Evaluation Date of Evaluation: 02/18/18 Time of Evaluation: 08:20 - Subjective Subjective: Comfortable, no abdominal pain, no fevers, not in distress, no diarrhea, eating well. Objective - Vital Signs/Intake and Output Vital Signs (last 24 hours): Temp Pulse Resp BP Pulse Ox 98.7 F 52 L 18 145/90 95 02/17/18 06:00 02/17/18 10:45 02/17/18 06:00 02/17/18 10:45 02/17/18 06:00 Intake and Output: 02/17/18 02/17/18 06:59 18:59 Intake Total 600 Balance 600 - Medications Medications: Current Medications Clonidine HCl (Catapres) 0.1 mg PO BID [facility] Last Admin: 02/17/18 10:45 Dose: 0.1 mg Enoxaparin Sodium (Lovenox) 40 mg SC DAILY [facility]; Protocol Last Admin: 02/17/18 10:43 Dose: 40 mg Gabapentin (Neurontin) 100 mg PO TID [facility]; Protocol Last Admin: 02/17/18 10:46 Dose: 100 mg Piperacillin Sod/Tazobactam Sod (Zosyn 3.375 In Ns 100ml) 100 mls @ 25 mls/hr IVPB Q12 [facility]; Protocol Stop: 02/22/18 22:01 Last Admin: 02/16/18 21:08 Dose: 25 mls/hr Ketorolac Tromethamine (Toradol) 30 mg IVP Q6H [facility] Last Admin: 02/17/18 10:46 Dose: 30 mg Methadone HCl (Methadone) 5 mg PO Q8H [facility] Last Admin: 02/17/18 10:44 Dose: 5 mg Nicotine (Nicoderm Cq) 1 patch TD DAILY [facility] Last Admin: 02/17/18 10:46 Dose: 1 patch Pantoprazole Sodium (Protonix Ec Tab) 40 mg PO ACB [facility] - Labs Labs: 02/17/18 06:30 02/17/18 06:30 PT 14.9 SECONDS (9.4-12.5) H 02/12/18 07:40 INR 1.29 02/12/18 07:40 APTT 31.6 Seconds (25.1-36.5) 02/12/18 07:40 - Constitutional Appears: No Acute Distress, Chronically Ill - Head Exam Head Exam: NORMAL INSPECTION - Respiratory Exam Respiratory Exam: Decreased Breath Sounds - Cardiovascular Exam Cardiovascular Exam: +S1, +S2 - GI/Abdominal Exam GI & Abdominal Exam: Soft. absent: Tenderness Assessment and Plan - Assessment and Plan (Free Text) Plan: Assessment Sepsis due to acute cholecystitis S/P ERCP for choledocholelithiasis with CBD stent placement, S/P lap cholecystectomy POD #2 sudden onset transamintis, etiology unclear history of DVT HTN bipolar disorder depression history of alcohol abuse Plan continue to hold Zosyn for now since AST, ALT are elevated (which have decreased) OR cultures are negative discussed with Dr. Junior will need outpatient follow up with PMD and Surgery to monitor liver enzymes
--- NOTE | 2018-02-18 15:36 | CP.PCM.DIS ---
<Karen Rosen - Last Filed: 02/18/18 15:31> Provider - Provider Date of Admission: 02/11/18 04:59 Attending physician: Latrice Junior MD Consults: 02/11/18 03:01 Physician Consult Stat Comment: Consulting Provider: Sea Mcmanus Consulting Physician: Sea Mcmanus Reason for Consult: cholecystitis w/ gallstones 02/11/18 05:48 Gastroenterology Consult Routine Comment: Consulting Provider: Cj Chun V Consulting Physician: Cj Chun V Reason for Consult: cholecystitis 02/12/18 15:05 Consult [Physician Consult] Routine Comment: Consulting Provider: Gregorio Vieira Consulting Physician: Gregorio Vieira Reason for Consult: possible ascending cholangitis Additional Comments: antibiotic management Time Spent in preparation of Discharge (in minutes): 35 Hospital Course - Lab Results Lab Results: Micro Results 02/12/18 17:30 Bile Gram Stain - Final 02/12/18 17:30 Bile Body Fluid Culture - Final No growth. 02/11/18 01:00 Blood Blood Culture - Final NO GROWTH AFTER 5 DAYS 02/11/18 01:00 Blood Gram Stain - Final TEST NOT PERFORMED 02/10/18 23:30 Blood Blood Culture - Final NO GROWTH AFTER 5 DAYS 02/10/18 23:30 Blood Gram Stain - Final TEST NOT PERFORMED Most Recent Lab Values WBC 8.2 10^3/uL (4.5-11.0) 02/18/18 06:20 RBC 4.58 10^6/uL (3.5-6.1) 02/18/18 06:20 Hgb 13.2 g/dL (14.0-18.0) L 02/18/18 06:20 Hct 39.2 % (42.0-52.0) L 02/18/18 06:20 MCV 85.6 fl (80.0-105.0) 02/18/18 06:20 MCH 28.8 pg (25.0-35.0) 02/18/18 06:20 MCHC 33.7 g/dl (31.0-37.0) 02/18/18 06:20 RDW 13.2 % (11.5-14.5) 02/18/18 06:20 Plt Count 249 10^3/uL (120.0-450.0) 02/18/18 06:20 MPV 10.1 fl (7.0-11.0) 02/18/18 06:20 Gran % 67.1 % (50.0-68.0) 02/18/18 06:20 Lymph % (Auto) 18.8 % (22.0-35.0) L 02/18/18 06:20 [place] % (Auto) 9.7 % (1.0-6.0) H 02/18/18 06:20 Eos % (Auto) 3.9 % (1.5-5.0) 02/18/18 06:20 Baso % (Auto) 0.5 % (0.0-3.0) 02/18/18 06:20 Gran # 5.51 (1.4-6.5) 02/18/18 06:20 Lymph # (Auto) 1.5 (1.2-3.4) 02/18/18 06:20 [place] # (Auto) 0.8 (0.1-0.6) H 02/18/18 06:20 Eos # (Auto) 0.3 (0.0-0.7) 02/18/18 06:20 Baso # (Auto) 0.04 K/mm3 (0.0-2.0) 02/18/18 06:20 PT 14.9 SECONDS (9.4-12.5) H 02/12/18 07:40 INR 1.29 02/12/18 07:40 APTT 31.6 Seconds (25.1-36.5) 02/12/18 07:40 pO2 39 mm/Hg (30-55) 02/10/18 23:30 VBG pH 7.41 (7.32-7.43) 02/10/18 23:30 VBG pCO2 48.0 (40-60) 02/10/18 23:30 VBG HCO3 30.4 mmol/l (21-28) H 02/10/18 23:30 VBG Total CO2 31.9 mmol.L (22-28) H 02/10/18 23:30 VBG O2 Sat (Calc) 81.3 % (40-65) H 02/10/18 23:30 VBG Base Excess 4.8 mmol/L (0.0-2.0) H 02/10/18 23:30 VBG Potassium 3.7 mmol/L (3.6-5.2) 02/10/18 23:30 Sodium 139.0 mmol/L (132-148) 02/10/18 23:30 Chloride 100.0 mmol/L (98-107) 02/10/18 23:30 Glucose 126 mg/dl (75-110) H 02/10/18 23:30 Lactate 1.8 mmol/L (0.7-2.1) 02/10/18 23:30 FiO2 21.0 % 02/10/18 23:30 Sodium 141 mmol/L (132-148) 02/18/18 06:20 Potassium 3.6 mmol/L (3.6-5.0) 02/18/18 06:20 Chloride 107 mmol/L (98-107) 02/18/18 06:20 Carbon Dioxide 27 mmol/L (21-33) 02/18/18 06:20 Anion Gap 10 (10-20) 02/18/18 06:20 BUN 14 mg/dL (7-21) 02/18/18 06:20 Creatinine 0.8 mg/dl (0.8-1.5) 02/18/18 06:20 Est GFR ( Amer) > 60 02/18/18 06:20 Est GFR (Non-Af Amer) > 60 02/18/18 06:20 Random Glucose 110 mg/dL (70-110) 02/18/18 06:20 Calcium 8.8 mg/dL (8.4-10.5) 02/18/18 06:20 Phosphorus 3.3 mg/dL (2.5-4.5) 02/15/18 07:00 Magnesium 2.0 mg/dL (1.7-2.2) 02/15/18 07:00 Total Bilirubin 0.2 mg/dL (0.2-1.3) 02/18/18 06:20 AST 351 U/L (17-59) H D 02/18/18 06:20 ALT 640 U/L (7-56) H 02/18/18 06:20 Alkaline Phosphatase 129 U/L (38-126) H D 02/18/18 06:20 Total Protein 7.1 g/dL (5.8-8.3) 02/18/18 06:20 Albumin 3.4 g/dL (3.0-4.8) 02/18/18 06:20 Globulin 3.8 gm/dL 02/18/18 06:20 Albumin/Globulin Ratio 0.9 (1.1-1.8) L 02/18/18 06:20 Lipase 35 U/L (23-300) 02/10/18 23:30 Procalcitonin 0.11 NG/ML (0.19-0.49) L 02/11/18 07:30 Venous Blood Potassium 3.7 mmol/L (3.6-5.2) 02/10/18 23:30 Urine Color Yellow (YELLOW) 02/10/18 23:43 Urine Appearance Clear (CLEAR) 02/10/18 23:43 Urine pH 7.5 (4.7-8.0) 02/10/18 23:43 Ur Specific [place] 1.020 (1.005-1.035) 02/10/18 23:43 Urine Protein 30 mg/dL (<30 mg/dL) H 02/10/18 23:43 Urine Glucose (UA) Negative mg/dL (NEGATIVE) 02/10/18 23:43 Urine Ketones 15 mg/dL (NEGATIVE) H 02/10/18 23:43 Urine Blood Negative (NEGATIVE) 02/10/18 23:43 Urine Nitrate Negative (NEGATIVE) 02/10/18 23:43 Urine Bilirubin Negative (NEGATIVE) 02/10/18 23:43 Urine Urobilinogen 1.0 E.U./dL (<1 E.U./dL) H 02/10/18 23:43 Ur Leukocyte Esterase Negative Trista/uL (NEGATIVE) 02/10/18 23:43 Urine RBC 0 - 2 /hpf (0-2) 02/10/18 23:43 Urine WBC 0 - 2 /hpf (0-6) 02/10/18 23:43 Ur Epithelial Cells 0 - 2 /hpf (0-5) 02/10/18 23:43 Amorphous Sediment Small 02/10/18 23:43 Urine Bacteria None (NEG) 02/10/18 23:43 Urine Opiates Screen Negative (NEGATIVE) 02/12/18 23:28 Urine Methadone Screen Negative (NEGATIVE) 02/12/18 23:28 Ur Barbiturates Screen Negative (NEGATIVE) 02/12/18 23:28 Ur Phencyclidine Scrn Negative (NEGATIVE) 02/12/18 23:28 Ur Amphetamines Screen Negative (NEGATIVE) 02/12/18 23:28 U Benzodiazepines Scrn Positive (NEGATIVE) H 02/12/18 23:28 U Oth Cocaine Metabols Negative (NEGATIVE) 02/12/18 23:28 U Cannabinoids Screen Negative (NEGATIVE) 02/12/18 23:28 Hepatitis A IgM Ab Negative (NEGATIVE) 02/11/18 08:06 Hep Bs Antigen Negative (NEGATIVE) 02/11/18 08:06 Hep B Core IgM Ab Negative (NEGATIVE) 02/11/18 08:06 Hepatitis C Antibody Reactive (NEGATIVE) 02/11/18 08:06 HIV 1&2 Ag/Ab, 4th Gen Nonreactive (Nonreactive) 02/13/18 08:00 Blood Type A POSITIVE 02/14/18 06:30 Blood Type Confirm A POSITIVE 02/15/18 07:00 Antibody Screen Negative 02/14/18 06:30 BBK History Checked No verified bt 02/14/18 06:30 - Hospital Course Hospital Course: This is a 43 year old male with PMH of bipolar 1 disorder and DVT of the left leg presenting to the hospital for 2 day history of abdominal pain. Pain is in the RLQ and RUQ, rated 10/10, sharp, constant, radiating to the right side of the back, associated with several episodes non bloody vomiting and diarrhea and patient denies any relieving or exacerbating factors. His last BM was 2 days ago and states he has not had an appetite since that time. He denies any similar symptoms in the past. He also admits to subjective fevers at home. He denies CP, hematemesis, hematochezia, constipation, urinary complaints, cough, recent travel, sickness, trauma, lifestyle change, numbness, tingling and swelling. 12 point ROS noted here, otherwise unremarkable. During hospital course, CTAP showed cholecystitis vs. cholelithiasis, abdominal ultrasound showed cholelithiasis/trace pericholecystic fluid without gallbladder wall edema or positive sonographic Lemon's sign. MRCP showed choledocholithaisis is difficult to exclude the distal CBD including a 2 mm distal CBD calculus. Limited pericholecystic fluid is seen with a distended gallbladder and numerous dependent gallstones in the gallbadder. Cholecystitis is not completely excluded but is the pattern more compatible with sonographic appearance than previous CT. EGD showed chronic gastritis, erosive gastropath, nonbleeding duodenal ulcers with clean ulcer base, multiple stones visualized endoscopically in the gallbladder. Dilation of CBD measured up to 9mm. ERCP showed choledocholithiasis found. Complete removal was accomplished by biliary sphincterotomy and balloon extraction. Biliary tree was swept. Contrast holdup was noticed in view of sepsis stent was placed good biliary drainage. One plastic stent was placed into common bile duct. Patient received lap cristiana on 02/15/18 with no post operative complications. Blood culture and body fluid sh owed no growth throughout hospital course. Patient initially treated with zosyn but found to have transaminitis and zosyn discontinued with improved LFT's. Patient's diet advanced as tolerated after surgery and patient's course and symptoms after the surgery. Discharge Exam - Additional Findings Additional findings: - Constitutional Appears: Well, Non-toxic, No Acute Distress - Head Exam Head Exam: ATRAUMATIC, NORMAL INSPECTION, NORMOCEPHALIC - Eye Exam Eye Exam: EOMI, PERRL - Respiratory Exam Respiratory Exam: Clear to Ausculation Bilateral, NORMAL BREATHING PATTERN - Cardiovascular Exam Cardiovascular Exam: REGULAR RHYTHM, +S1 +S2 - GI/Abdominal Exam GI & Abdominal Exam: Soft, minimal tenderness in RLQ to deep palpation, Normal Bowel Sounds. Dressings in place with no overt bleeding/pus/drainage noted. - Extremities Exam Extremities Exam: Full ROM - Neurological Exam Neurological Exam: Alert, Awake, CN II-XII Intact Discharge Plan - Discharge Medications Prescriptions: Docusate [Colace] 100 mg PO DAILY 7 Days #7 cap - Follow Up Plan Condition: GUARDED Disposition: HOME/ ROUTINE Instructions: Flu Vaccine, Cholecystitis (DC), Cholecystitis (GEN) Additional Instructions: Please follow up with your primary care doctor to have your LFT's (liver enzymes in blood) checked within 3 days as per our agreement. As per our conversation, please do not drink alcohol or take tylenol. Please take motrin 400mg over the counter as needed up to 4 times a day with meals for pain. Please continue taking your home medications. You have been given a prescription "colace" which is a stool softener that you can take as needed. Please follow up with [facility] of [facility] outpatient to have you stent removed. No heavy lifting (>15 lbs) for 4 weeks. Please return to the ED for any new or worsening symptoms. <Latrice Junior - Last Filed: 02/18/18 16:10> Provider - Provider Date of Admission: 02/11/18 04:59 Attending physician: Latrice Junior MD Consults: 02/11/18 03:01 Physician Consult Stat Comment: Consulting Provider: Sea Mcmanus Consulting Physician: Sea Mcmanus Reason for Consult: cholecystitis w/ gallstones 02/11/18 05:48 Gastroenterology Consult Routine Comment: Consulting Provider: Cj Chun V Consulting Physician: Cj Chun V Reason for Consult: cholecystitis 02/12/18 15:05 Consult [Physician Consult] Routine Comment: Consulting Provider: Gregorio Vieira Consulting Physician: Gregorio Vieira Reason for Consult: possible ascending cholangitis Additional Comments: antibiotic management Hospital Course - Lab Results Lab Results: Micro Results 02/12/18 17:30 Bile Gram Stain - Final 02/12/18 17:30 Bile Body Fluid Culture - Final No growth. 02/11/18 01:00 Blood Blood Culture - Final NO GROWTH AFTER 5 DAYS 02/11/18 01:00 Blood Gram Stain - Final TEST NOT PERFORMED 02/10/18 23:30 Blood Blood Culture - Final NO GROWTH AFTER 5 DAYS 02/10/18 23:30 Blood Gram Stain - Final TEST NOT PERFORMED Most Recent Lab Values WBC 8.2 10^3/uL (4.5-11.0) 02/18/18 06:20 RBC 4.58 10^6/uL (3.5-6.1) 02/18/18 06:20 Hgb 13.2 g/dL (14.0-18.0) L 02/18/18 06:20 Hct 39.2 % (42.0-52.0) L 02/18/18 06:20 MCV 85.6 fl (80.0-105.0) 02/18/18 06:20 MCH 28.8 pg (25.0-35.0) 02/18/18 06:20 MCHC 33.7 g/dl (31.0-37.0) 02/18/18 06:20 RDW 13.2 % (11.5-14.5) 02/18/18 06:20 Plt Count 249 10^3/uL (120.0-450.0) 02/18/18 06:20 MPV 10.1 fl (7.0-11.0) 02/18/18 06:20 Gran % 67.1 % (50.0-68.0) 02/18/18 06:20 Lymph % (Auto) 18.8 % (22.0-35.0) L 02/18/18 06:20 [place]t % (Auto) 9.7 % (1.0-6.0) H 02/18/18 06:20 Eos % (Auto) 3.9 % (1.5-5.0) 02/18/18 06:20 Baso % (Auto) 0.5 % (0.0-3.0) 02/18/18 06:20 Gran # 5.51 (1.4-6.5) 02/18/18 06:20 Lymph # (Auto) 1.5 (1.2-3.4) 02/18/18 06:20 [place] # (Auto) 0.8 (0.1-0.6) H 02/18/18 06:20 Eos # (Auto) 0.3 (0.0-0.7) 02/18/18 06:20 Baso # (Auto) 0.04 K/mm3 (0.0-2.0) 02/18/18 06:20 PT 14.9 SECONDS (9.4-12.5) H 02/12/18 07:40 INR 1.29 02/12/18 07:40 APTT 31.6 Seconds (25.1-36.5) 02/12/18 07:40 pO2 39 mm/Hg (30-55) 02/10/18 23:30 VBG pH 7.41 (7.32-7.43) 02/10/18 23:30 VBG pCO2 48.0 (40-60) 02/10/18 23:30 VBG HCO3 30.4 mmol/l (21-28) H 02/10/18 23:30 VBG Total CO2 31.9 mmol.L (22-28) H 02/10/18 23:30 VBG O2 Sat (Calc) 81.3 % (40-65) H 02/10/18 23:30 VBG Base Excess 4.8 mmol/L (0.0-2.0) H 02/10/18 23:30 VBG Potassium 3.7 mmol/L (3.6-5.2) 02/10/18 23:30 Sodium 139.0 mmol/L (132-148) 02/10/18 23:30 Chloride 100.0 mmol/L (98-107) 02/10/18 23:30 Glucose 126 mg/dl (75-110) H 02/10/18 23:30 Lactate 1.8 mmol/L (0.7-2.1) 02/10/18 23:30 FiO2 21.0 % 02/10/18 23:30 Sodium 141 mmol/L (132-148) 02/18/18 06:20 Potassium 3.6 mmol/L (3.6-5.0) 02/18/18 06:20 Chloride 107 mmol/L (98-107) 02/18/18 06:20 Carbon Dioxide 27 mmol/L (21-33) 02/18/18 06:20 Anion Gap 10 (10-20) 02/18/18 06:20 BUN 14 mg/dL (7-21) 02/18/18 06:20 Creatinine 0.8 mg/dl (0.8-1.5) 02/18/18 06:20 Est GFR ( Amer) > 60 02/18/18 06:20 Est GFR (Non-Af Amer) > 60 02/18/18 06:20 Random Glucose 110 mg/dL (70-110) 02/18/18 06:20 Calcium 8.8 mg/dL (8.4-10.5) 02/18/18 06:20 Phosphorus 3.3 mg/dL (2.5-4.5) 02/15/18 07:00 Magnesium 2.0 mg/dL (1.7-2.2) 02/15/18 07:00 Total Bilirubin 0.2 mg/dL (0.2-1.3) 02/18/18 06:20 AST 351 U/L (17-59) H D 02/18/18 06:20 ALT 640 U/L (7-56) H 02/18/18 06:20 Alkaline Phosphatase 129 U/L (38-126) H D 02/18/18 06:20 Total Protein 7.1 g/dL (5.8-8.3) 02/18/18 06:20 Albumin 3.4 g/dL (3.0-4.8) 02/18/18 06:20 Globulin 3.8 gm/dL 02/18/18 06:20 Albumin/Globulin Ratio 0.9 (1.1-1.8) L 02/18/18 06:20 Lipase 35 U/L (23-300) 02/10/18 23:30 Procalcitonin 0.11 NG/ML (0.19-0.49) L 02/11/18 07:30 Venous Blood Potassium 3.7 mmol/L (3.6-5.2) 02/10/18 23:30 Urine Color Yellow (YELLOW) 02/10/18 23:43 Urine Appearance Clear (CLEAR) 02/10/18 23:43 Urine pH 7.5 (4.7-8.0) 02/10/18 23:43 Ur Specific [place] 1.020 (1.005-1.035) 02/10/18 23:43 Urine Protein 30 mg/dL (<30 mg/dL) H 02/10/18 23:43 Urine Glucose (UA) Negative mg/dL (NEGATIVE) 02/10/18 23:43 Urine Ketones 15 mg/dL (NEGATIVE) H 02/10/18 23:43 Urine Blood Negative (NEGATIVE) 02/10/18 23:43 Urine Nitrate Negative (NEGATIVE) 02/10/18 23:43 Urine Bilirubin Negative (NEGATIVE) 02/10/18 23:43 Urine Urobilinogen 1.0 E.U./dL (<1 E.U./dL) H 02/10/18 23:43 Ur Leukocyte Esterase Negative Trista/uL (NEGATIVE) 02/10/18 23:43 Urine RBC 0 - 2 /hpf (0-2) 02/10/18 23:43 Urine WBC 0 - 2 /hpf (0-6) 02/10/18 23:43 Ur Epithelial Cells 0 - 2 /hpf (0-5) 02/10/18 23:43 Amorphous Sediment Small 02/10/18 23:43 Urine Bacteria None (NEG) 02/10/18 23:43 Urine Opiates Screen Negative (NEGATIVE) 02/12/18 23:28 Urine Methadone Screen Negative (NEGATIVE) 02/12/18 23:28 Ur Barbiturates Screen Negative (NEGATIVE) 02/12/18 23:28 Ur Phencyclidine Scrn Negative (NEGATIVE) 02/12/18 23:28 Ur Amphetamines Screen Negative (NEGATIVE) 02/12/18 23:28 U Benzodiazepines Scrn Positive (NEGATIVE) H 02/12/18 23:28 U Oth Cocaine Metabols Negative (NEGATIVE) 02/12/18 23:28 U Cannabinoids Screen Negative (NEGATIVE) 02/12/18 23:28 Hepatitis A IgM Ab Negative (NEGATIVE) 02/11/18 08:06 Hep Bs Antigen Negative (NEGATIVE) 02/11/18 08:06 Hep B Core IgM Ab Negative (NEGATIVE) 02/11/18 08:06 Hepatitis C Antibody Reactive (NEGATIVE) 02/11/18 08:06 HIV 1&2 Ag/Ab, 4th Gen Nonreactive (Nonreactive) 02/13/18 08:00 Blood Type A POSITIVE 02/14/18 06:30 Blood Type Confirm A POSITIVE 02/15/18 07:00 Antibody Screen Negative 02/14/18 06:30 BBK History Checked No verified bt 02/14/18 06:30 Attending/Attestation - Attestation I have personally seen and examined this patient.: Yes I have fully participated in the care of the patient.: Yes I have reviewed all pertinent clinical information, including history, physical exam and plan: Yes Notes (Text): 02/18/18 16:04 Medical record note made by the resident after discussion with my direction and input after the patient was personally seen and examined by me. I have reviewed the chart and agree that the record accurately reflects by personal performance of the history, physical exam, data review, and medical decision-making, in the course for the patient. I have also personally directed the plan of care. 43 year old male with PMH of Hepatiti C, of bipolar I disorder and DVT of left leg presents with 2 day history of abdominal pain in right upper and lower quadrant that radiates to the side of the back with nonblood vomiting and diarrhea. MRCP showed choledocholithaisis is difficult to exclude the distal CBD including a 2 mm distal CBD calculus. Limited pericholecystic fluid is seen with a distended gallbladder and numerous dependent gallstones in the gallbadder. Cholecystitis was not completely excluded but is the pattern more compatible with sonographic appearance than previous CT ).Patient was evaluated by GI and surgery and underwent EGD and ERCP. -EGD showed chronic gastritis, erosive gastritis , nonbleeding duodenal ulcers with clean ulcer base, multiple stones visualized endoscopically in the gallbladder. Dilation of CBD measured up to 9mm. -ERCP showed (choledocholithiasis found. Complete removal was accomplished by biliary sphincterotomy and balloon extraction. Biliary tree was swept. Contrast holdup was noticed in view of sepsis stent was placed good biliary drainage. One stent was placed into common bile duct) Patient is s/p lap cholecystectomy day 3, feeling better, tolerating food. He was found to have elevated transaminase, etiology unclear, could be medication /transient hypotension.Zosyn was discontinued. Patient Transaminase are coming down. He will follow up with PCP on 02/21/18 and will have repeat LFT. Patient has been advised not to drink alcohol and avoid Tylenol. Patient will also be on Protonix 40 mg po daily for chronic gastritis, erosive gastritis , nonbleeding duodenal ulcers. Management plan was discussed in detail with patient. Education was provided.
== END 2018-02-18 15:32 | disposition home or self-care (01) | DRG 898 ==
LOC: ED 21:56 → ERH 02-11 04:59 → 3RSO 02-11 07:10 → 5RNO 02-11 14:17
PROVIDERS: ADMIT Internal Medicine; ATTEND Internal Medicine
PROC: BD47ZZZ Ultrasonography of Gastrointestinal Tract (ICD-10-PCS; 2018-02-12)
PROC: 0FC98ZZ Extirpation of Matter from Common Bile Duct, Via Natural or Artificial Opening Endoscopic (ICD-10-PCS; 2018-02-12 15:00)
PROC: 0F798DZ Dilation of Common Bile Duct with Intraluminal Device, Via Natural or Artificial Opening Endoscopic (ICD-10-PCS; 2018-02-12 15:00)
PROC: 0DB68ZX Excision of Stomach, Via Natural or Artificial Opening Endoscopic, Diagnostic (ICD-10-PCS; 2018-02-12 15:00)
PROC: 0FT44ZZ Resection of Gallbladder, Percutaneous Endoscopic Approach (ICD-10-PCS; principal; 2018-02-16)
PROC: 0DNU4ZZ Release Omentum, Percutaneous Endoscopic Approach (ICD-10-PCS; 2018-02-16)
PROC: 0DNE4ZZ Release Large Intestine, Percutaneous Endoscopic Approach (ICD-10-PCS; 2018-02-16)
PROC: 0F944ZZ Drainage of Gallbladder, Percutaneous Endoscopic Approach (ICD-10-PCS; 2018-02-16)
DX: A41.9 Sepsis, unspecified organism (principal); B19.20 Unspecified viral hepatitis C without hepatic coma; K80.66 Calculus of gallbladder and bile duct with acute and chronic cholecystitis without obstruction; F11.23 Opioid dependence with withdrawal; F14.10 Cocaine abuse, uncomplicated; K74.60 Unspecified cirrhosis of liver; E87.6 Hypokalemia; K82.1 Hydrops of gallbladder; K29.50 Unspecified chronic gastritis without bleeding; E66.01 Morbid (severe) obesity due to excess calories; F17.210 Nicotine dependence, cigarettes, uncomplicated; F31.9 Bipolar disorder, unspecified; I10 Essential (primary) hypertension; K26.9 Duodenal ulcer, unspecified as acute or chronic, without hemorrhage or perforation; K52.9 Noninfective gastroenteritis and colitis, unspecified; K59.00 Constipation, unspecified; Z68.31 Body mass index [BMI] 31.0-31.9, adult; Z79.899 Other long term (current) drug therapy; Z86.718 Personal history of other venous thrombosis and embolism; Z87.11 Personal history of peptic ulcer disease; Z91.012 Allergy to eggs; Z91.010 Allergy to peanuts; F10.11 Alcohol abuse, in remission; B96.81 Helicobacter pylori [H. pylori] as the cause of diseases classified elsewhere

== ENCOUNTER 2018-03-09 00:07 | Emergency (ER) | payer OTHER ==
[2018-03-09 00:40] VITALS: BMI 34.2
[2018-03-09 00:51] VITALS: TEMP 98.5
[2018-03-09] MEDS ORDERED: Sodium Chloride 0.9% 1,000 ML IV STA (01:03)
--- NOTE | 2018-03-09 01:19 | ED PDOC ---
Arrival/HPI - General Chief Complaint: Fever Time Seen by Provider: 03/09/18 00:16 Historian: Patient - History of Present Illness Narrative History of Present Illness (Text): 03/09/18 01:15 43 year old male, whose past medical history includes bipolar type 1 and cholecystectomy on 02/11/18, presents to the emergency department with abdominal pain. Patient states he has some reoccurring abdominal pain after his surgery, and is worried about infection. Patient states he feels some body aches, and thought he might have been feverish. Patient informs pain worsening by certain movements, like bending over. Patient denies any dysuria, headache, dizziness, chest pain, shortness of breath, cough, or any other complaint. Time/Duration: Prior to Arrival Symptom Onset: Gradual Symptom Course: Unchanged Quality: Aching Context: Home Past Medical History - Provider Review Nursing Documentation Reviewed: Yes - Cardiac Hx Cardiac Disorders: Yes Hx Hypertension: No - Pulmonary Hx Tuberculosis: No - Neurological Hx Seizures: No - HEENT Hx HEENT Disorder: No - Renal Hx Renal Disorder: No - Endocrine/Metabolic Hx Endocrine Disorders: No - Hematological/Oncological Hx Cancer: No - Integumentary Hx Dermatological Disorder: No - Musculoskeletal/Rheumatological Hx Falls: No - Gastrointestinal Other/Comment: Abdominal pain, vomit, constipation - Genitourinary/Gynecological Hx Sexually Transmitted Diseases: No - Psychiatric Hx Bipolar Disorder: Yes Hx Depression: Yes Hx Substance Use: Yes (opioids) - Surgical History Other/Comment: 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 ago - Anesthesia Hx Anesthesia: Yes Hx Anesthesia Reactions: No Family/Social History - Physician Review Nursing Documentation Reviewed: Yes Family/Social History: No Known Family HX Smoking Status: Light Smoker < 10 Cigarettes Daily Hx Alcohol Use: No Hx Substance Use: Yes (opioids) Substance used: heroin Allergies/Home Meds Allergies/Adverse Reactions: Allergies aspirin Allergy (Verified 03/09/18 00:44) RASH egg Allergy (Verified 03/09/18 00:44) RASH peanut Allergy (Verified 03/09/18 00:44) RASH Review of Systems - Physician Review All systems were reviewed & negative as marked: Yes - Review of Systems Constitutional: Fatigue (and body aches) Respiratory: absent: SOB, Cough Cardiovascular: absent: Chest Pain Gastrointestinal: Abdominal Pain Genitourinary Male: absent: Dysuria Neurological: absent: Headache, Dizziness Physical Exam Vital Signs Reviewed: Yes Vital Signs Temp Pulse Resp BP Pulse Ox 03/09/18 00:57 75 18 139/65 95 03/09/18 00:50 98.5 F Temperature: Afebrile - Systems Exam Head: Present: Atraumatic, Normocephalic Pupils: Present: PERRL Extroacular Muscles: Present: EOMI Conjunctiva: Present: Normal Mouth: Present: Moist Mucous Membranes Neck: Present: Normal Range of Motion Respiratory/Chest: Present: Clear to Auscultation, Good Air Exchange. No: Respiratory Distress, Accessory Muscle Use Cardiovascular: Present: Regular Rate and Rhythm, Normal S1, S2. No: Murmurs Abdomen: Present: Other (surgical sites clean, dry, and intact; no puss noted, no oozing from any wounds). No: Tenderness, Distention, Peritoneal Signs Back: Present: Normal Inspection Upper Extremity: Present: Normal Inspection. No: Cyanosis, Edema Lower Extremity: Present: Normal Inspection. No: Edema Neurological: Present: GCS=15, CN II-XII Intact, Speech Normal Skin: Present: Warm, Dry, Normal Color. No: Rashes Psychiatric: Present: Alert, Oriented x 3, Normal Insight, Normal Concentration Medical Decision Making ED Course and Treatment: 03/09/18 01:24 Impression: 43 year old male presents with postoperative pain Differential Diagnoses Include But Are Not Limited To: --SBO --Incisional hernia Plan: -- VBG -- CT ABD & Pelvis -- Labs -- Surgery Consult -- Toradol -- Urinalysis -- Reassess and disposition Prior Visits: Notes and results from previous visits were reviewed. Progress Notes: 03/09/18 4:[address] a/p reveals no intraabdominal pathology. Surgery resident evaluated patient and states patient must follow up with GI specialist, as there is no surgical intervention to be performed at this time. Patient demonstrates understanding. He is stable for discharge. - Lab Interpretations Lab Results: 03/09/18 01:15 03/09/18 01:15 Lab Results 03/09/18 03:00: Urine Opiates Screen Positive H, Urine Methadone Screen Positive H, Ur Barbiturates Screen Negative, Ur Phencyclidine Scrn Negative, Ur Amphetamines Screen Negative, U Benzodiazepines Scrn Negative, U Oth Cocaine Metabols Positive H, U Cannabinoids Screen Negative 03/09/18 03:00: Urine Color Yellow, Urine Appearance Clear, Urine pH 6.0, Ur Specific [place] 1.025, Urine Protein Negative, Urine Glucose (UA) Negative, Urine Ketones Trace H, Urine Blood Negative, Urine Nitrate Negative, Urine Bilirubin Negative, Urine Urobilinogen 0.2, Ur Leukocyte Esterase Negative 03/09/18 01:15: Sodium 140, Chloride 107, Potassium 3.9, Carbon Dioxide 27, Anion Gap 10, BUN 10, Creatinine 1.0, Est GFR ( Amer) > 60, Est GFR (Non- Af Amer) > 60, Random Glucose 142 H, Calcium 8.7, Magnesium 1.9, Total Bilirubin 0.3, AST 85 H D, ALT 101 H, Alkaline Phosphatase 128 H, Total Protein 7.2, Albumin 3.6, Globulin 3.6, Albumin/Globulin Ratio 1.0 L, Lipase 181 03/09/18 01:15: pO2 77 H, VBG pH 7.41, VBG pCO2 47.0, VBG HCO3 29.8 H, VBG Total CO2 31.2 H, VBG O2 Sat (Calc) 98.8 H, VBG Base Excess 4.3 H, VBG Potassium 3.8, Sodium 140.0, Chloride 106.0, Glucose 146 H, Lactate 1.7, FiO2 21.0, Venous Blood Potassium 3.8 03/09/18 01:15: PT 12.1, INR 1.06, APTT 33.0 03/09/18 01:15: WBC 6.5 D, RBC 4.70, Hgb 13.5 L, Hct 40.7 L, MCV 86.6, MCH 28. 7, MCHC 33.2, RDW 13.2, Plt Count 210, MPV 9.8, Gran % 53.2, Lymph % (Auto) 30.2, [place] % (Auto) 10.2 H, Eos % (Auto) 6.2 H, Baso % (Auto) 0.2, Gran # 3.47, Lymph # (Auto) 2.0, [place] # (Auto) 0.7 H, Eos # (Auto) 0.4, Baso # (Auto) 0.01 I have reviewed the lab results: Yes - RAD Interpretation Radiology Orders: 03/09/18 01:01 ABD & PELVIS IV CONTRAST ONLY [CT] Stat - Medication Orders Current Medication Orders: Sodium Chloride (Sodium Chloride 0.9%) 1,000 mls @ 999 mls/hr IV .Q1H1M STA Stop: 03/09/18 02:03 Ketorolac Tromethamine (Toradol) 30 mg IVP STAT STA Stop: 03/09/18 01:04 - Scribe Statement The provider has reviewed the documentation as recorded by the Scribe Luciano Aguero Provider Scribe Attestation: All medical record entries made by the Scribe were at my direction and personally dictated by me. I have reviewed the chart and agree that the record accurately reflects my personal performance of the history, physical exam, medical decision making, and the department course for this patient. I have also personally directed, reviewed, and agree with the discharge instructions and disposition. Disposition/Present on Arrival - Present on Arrival Any Indicators Present on Arrival: No History of DVT/PE: No History of Uncontrolled Diabetes: No Urinary Catheter: No History of Decub. Ulcer: No History Surgical Site Infection Following: None - Disposition Have Diagnosis and Disposition been Completed?: Yes Diagnosis: Abdominal pain Disposition: HOME/ ROUTINE Disposition Time: 04:31 Patient Plan: Discharge Condition: IMPROVED Discharge Instructions (ExitCare): Chronic Pain (DC), Acute Abdomen (Belly Pain), Adult (DC) Print Language: KOREAN Additional Instructions: All medical record entries made by the Scribe were at my direction and personally dictated by me. I have reviewed the chart and agree that the record accurately reflects my personal performance of the history, physical exam, medical decision making, and the department course for this patient. I have also personally directed, reviewed, and agree with the discharge instructions and disposition. Referrals: Cj Chun MD [Medical Doctor] - Follow up with primary Sea Mcmanus MD [Medical Doctor] - Forms: [employer] (Uzbek)
[2018-03-09 01:32] LABS: BASO # 0.01 K/mm3 (0.0-2.0); BASO % 0.2 % (0.0-3.0); EOS # 0.4 (0.0-0.7); EOS % 6.2 % (1.5-5.0); GRAN # 3.47 (1.4-6.5); GRAN % 53.2 % (50.0-68.0); HEMOGLOBIN 13.5 g/dL (14.0-18.0); LYMPH % 30.2 % (22.0-35.0); MEAN CELL VOLUME 86.6 fl (80.0-105.0); MEAN CORPUSCULAR HEMOGLOBIN 28.7 pg (25.0-35.0); MEAN CORPUSCULAR HGB CONC 33.2 g/dl (31.0-37.0); MEAN PLATELET VOLUME 9.8 fl (7.0-11.0); MONO # 0.7 (0.1-0.6); MONO % 10.2 % (1.0-6.0); RBC 4.7 10^6/uL (3.5-6.1); RED CELL DISTRIBUTION WIDTH 13.2 % (11.5-14.5); WHITE BLOOD COUNT 6.5 10^3/uL (4.5-11.0)
[2018-03-09 01:42] LABS: INR 1.06; PROTHROMBIN TIME 12.1 SECONDS (9.4-12.5)
[2018-03-09 01:50] LABS: VENOUS BLOOD GAS BASE EXCESS 4.3 mmol/L (0.0-2.0); VENOUS BLOOD GAS PO2 77 mm/Hg (30-55); VENOUS BLOOD PH 7.41 (7.32-7.43)
[2018-03-09 02:14] LABS: ALBUMIN 3.6 g/dL (3.0-4.8); ALT/SGPT 101 U/L (7-56); AST/SGOT 85 U/L (17-59); BLOOD UREA NITROGEN 10 mg/dL (7-21); CALCIUM 8.7 mg/dL (8.4-10.5); GFR NON-AFRICAN AMERICAN > 60; LIPASE 181 U/L (23-300)
[2018-03-09 03:14] LABS: URINE BILIRUBIN NEGATIVE (NEGATIVE); URINE BLOOD NEGATIVE (NEGATIVE); URINE GLUCOSE (UA) NEGATIVE (NEGATIVE); URINE LEUKOCYTE ESTERASE NEGATIVE Leu/uL (NEGATIVE); URINE PROTEIN NEGATIVE mg/dL (<30 mg/dL); URINE UROBILINOGEN 0.2 E.U./dL (<1 E.U./dL)
[2018-03-09 03:19] LABS: URINE APPEARANCE CLEAR (CLEAR); URINE COLOR YELLOW (YELLOW)
[2018-03-09 03:32] LABS: BARBITURATES, UR NEGATIVE (NEGATIVE)
[2018-03-09] MEDS ORDERED: Iohexol 350 MG/100 ML VIAL ONE (03:43)
[2018-03-09 03:57] LABS: BENZODIAZEPINES, UR NEGATIVE (NEGATIVE); OPIATES, UR POSITIVE (NEGATIVE); PHENCYCLIDINE, UR NEGATIVE (NEGATIVE)
[2018-03-09 05:02] VITALS: BP 137/74; PULSE 79; RESP 16; O2SAT 100
--- NOTE | 2018-03-09 05:15 | CP.PCM.CON ---
History of Present Illness - History of Present Illness History of Present Illness: Surgery Consult Note- Dr. Mcmanus Reason for consult: Abdominal pain s/p lap cristiana 43 year old male with PMH of bipolar 1 disorder, DVT, recreational drug, s/p Laparoscopic cholecystectomy for acute necrotizing cholecystitis and CBD stent placement on 02/15/18 presents to [facility] ED w/ mild persistent RUQ pain. Denies nausea, vomiting, subjective fevers, no chills. Patient was concerned he was unable to follow up with Dr. Mcmanus and Dr. Chun as an outpatient so decided to come to the ER for evaluation post-op. Of note, patient admits cocaine and opiate use within the last week. PMD: none PMH: bipolar 1 disorder, DVT of left leg PSH: left leg thrombectomy, cholecystectomy SH: admits to cocaine, heroine and drinking. Smoked 1/2 ppd for 15 years FH: denies All: eggs and peanuts Review of Systems - Review of Systems All systems: reviewed and no additional remarkable complaints except - Constitutional Constitutional: As Per HPI Past Patient History - Past Medical History & Family History Past Medical History?: No - Past Social History Smoking Status: Light Smoker < 10 Cigarettes Daily - CARDIAC Hx Cardiac Disorders: Yes Hx Hypertension: No - PULMONARY Hx Tuberculosis: No - NEUROLOGICAL Hx Seizures: No - HEENT Hx HEENT Problems: No - RENAL Hx Chronic Kidney Disease: No - ENDOCRINE/METABOLIC Hx Endocrine Disorders: No - HEMATOLOGICAL/ONCOLOGICAL Hx Cancer: No - INTEGUMENTARY Hx Dermatological Problems: No - MUSCULOSKELETAL/RHEUMATOLOGICAL Hx Falls: No - GASTROINTESTINAL Other/Comment: Abdominal pain, vomit, constipation - GENITOURINARY/GYNECOLOGICAL Hx Sexually Transmitted Disorders: No - PSYCHIATRIC Hx Bipolar Disorder: Yes Hx Depression: Yes Hx Substance Use: Yes (opioids) - SURGICAL HISTORY Other/Comment: 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 ago - ANESTHESIA Hx Anesthesia: Yes Hx Anesthesia Reactions: No Meds Allergies/Adverse Reactions: Allergies Allergy/AdvReac Type Severity Reaction Status Date / Time aspirin Allergy RASH Verified 03/09/18 00:44 egg Allergy RASH Verified 03/09/18 00:44 peanut Allergy RASH Verified 03/09/18 00:44 Physical Exam - Constitutional Appears: Non-toxic, No Acute Distress - Head Exam Head Exam: ATRAUMATIC - Eye Exam Eye Exam: EOMI. absent: Scleral icterus - ENT Exam ENT Exam: Mucous Membranes Moist - Respiratory Exam Respiratory Exam: NORMAL BREATHING PATTERN. absent: Accessory Muscle Use, Respiratory Distress - Cardiovascular Exam Cardiovascular Exam: +S1, +S2. absent: Bradycardia, Tachycardia - GI/Abdominal Exam GI & Abdominal Exam: Soft, Tenderness (mild tenderness to deep palpation in RUQ, Negative Lemon's sign). absent: Distended, Firm, Guarding, Hernia, Rigid - Neurological Exam Neurological exam: Alert, Oriented x3 - Psychiatric Exam Psychiatric exam: Normal Affect - Skin Skin Exam: Intact, Warm Results - Vital Signs Recent Vital Signs: Last Vital Signs Temp 98.5 F 03/09/18 00:50 Pulse 79 03/09/18 05:02 Resp 16 03/09/18 05:02 BP 137/74 03/09/18 05:02 Pulse Ox 100 03/09/18 05:02 - Labs Result Diagrams: 03/09/18 01:15 03/09/18 01:15 Labs: Laboratory Results - last 24 hr 03/09/18 03/09/18 03/09/18 01:15 01:15 01:15 WBC 6.5 D RBC 4.70 Hgb 13.5 L Hct 40.7 L MCV 86.6 MCH 28.7 MCHC 33.2 RDW 13.2 Plt Count 210 MPV 9.8 Gran % 53.2 Lymph % (Auto) 30.2 [place] % (Auto) 10.2 H Eos % (Auto) 6.2 H Baso % (Auto) 0.2 Gran # 3.47 Lymph # (Auto) 2.0 [place] # (Auto) 0.7 H Eos # (Auto) 0.4 Baso # (Auto) 0.01 PT 12.1 INR 1.06 APTT 33.0 pO2 77 H VBG pH 7.41 VBG pCO2 47.0 VBG HCO3 29.8 H VBG Total CO2 31.2 H VBG O2 Sat (Calc) 98.8 H VBG Base Excess 4.3 H VBG Potassium 3.8 Sodium 140.0 Chloride 106.0 Glucose 146 H Lactate 1.7 FiO2 21.0 Potassium Carbon Dioxide Anion Gap BUN Creatinine Est GFR ( Amer) Est GFR (Non-Af Amer) Random Glucose Calcium Magnesium Total Bilirubin AST ALT Alkaline Phosphatase Total Protein Albumin Globulin Albumin/Globulin Ratio Lipase Venous Blood Potassium 3.8 Urine Color Urine Appearance Urine pH Ur Specific [place] Urine Protein Urine Glucose (UA) Urine Ketones Urine Blood Urine Nitrate Urine Bilirubin Urine Urobilinogen Ur Leukocyte Esterase Urine Opiates Screen Urine Methadone Screen Ur Barbiturates Screen Ur Phencyclidine Scrn Ur Amphetamines Screen U Benzodiazepines Scrn U Oth Cocaine Metabols U Cannabinoids Screen 03/09/18 03/09/18 03/09/18 01:15 03:00 03:00 WBC RBC Hgb Hct MCV MCH MCHC RDW Plt Count MPV Gran % Lymph % (Auto) [place] % (Auto) Eos % (Auto) Baso % (Auto) Gran # Lymph # (Auto) [place] # (Auto) Eos # (Auto) Baso # (Auto) PT INR APTT pO2 VBG pH VBG pCO2 VBG HCO3 VBG Total CO2 VBG O2 Sat (Calc) VBG Base Excess VBG Potassium Sodium 140 Chloride 107 Glucose Lactate FiO2 Potassium 3.9 Carbon Dioxide 27 Anion Gap 10 BUN 10 Creatinine 1.0 Est GFR ( Amer) > 60 Est GFR (Non-Af Amer) > 60 Random Glucose 142 H Calcium 8.7 Magnesium 1.9 Total Bilirubin 0.3 AST 85 H D ALT 101 H Alkaline Phosphatase 128 H Total Protein 7.2 Albumin 3.6 Globulin 3.6 Albumin/Globulin Ratio 1.0 L Lipase 181 Venous Blood Potassium Urine Color Yellow Urine Appearance Clear Urine pH 6.0 Ur Specific [place] 1.025 Urine Protein Negative Urine Glucose (UA) Negative Urine Ketones Trace H Urine Blood Negative Urine Nitrate Negative Urine Bilirubin Negative Urine Urobilinogen 0.2 Ur Leukocyte Esterase Negative Urine Opiates Screen Positive H Urine Methadone Screen Positive H Ur Barbiturates Screen Negative Ur Phencyclidine Scrn Negative Ur Amphetamines Screen Negative U Benzodiazepines Scrn Negative U Oth Cocaine Metabols Positive H U Cannabinoids Screen Negative Assessment & Plan - Assessment and Plan (Free Text) Assessment: 43M s/p laparoscopic cholecystectomy for Acute Necrotizing cholecystitis on 02/15/18 Plan: - Recovering appropriately - recommend f/u w/ Dr. Chun for CBD stent removal as outpatient - counselled patient to stop using illicit drugs as it is detrimental to patients health. - f/u as an outpatient w/ Dr. Mcmanus in clinic - no acute surgical intervention at this time PGY2
--- NOTE | 2018-03-09 13:46 | CT ---
Date of service: 03/09/2018 PROCEDURE: CT Abdomen and Pelvis with contrast HISTORY: h/o cholecystitis s/p percutaneous drain COMPARISON: None. TECHNIQUE: Contrast dose: 100 cc of Omni 350 Radiation dose: Total exam DLP = 1130.52 mGy-cm. This CT exam was performed using one or more of the following dose reduction techniques: Automated exposure control, adjustment of the mA and/or kV according to patient size, and/or use of iterative reconstruction technique. FINDINGS: LOWER THORAX: There is linear scarring at both lung bases. LIVER: Unremarkable. No gross lesion or ductal dilatation. GALLBLADDER AND BILE DUCTS: The gallbladder has been removed. There is a common duct stent in place. PANCREAS: Unremarkable. No gross lesion or ductal dilatation. SPLEEN: Mild splenomegaly. The spleen measures 16 cm in height ADRENALS: Unremarkable. No mass. KIDNEYS AND URETERS: Unremarkable. No hydronephrosis. No solid mass. There is a small nonobstructing stone in the upper pole of the left kidney VASCULATURE: Unremarkable. No aortic aneurysm. No aortic atherosclerotic calcification or mural plaque present. BOWEL: Unremarkable. No obstruction. No gross mural thickening. APPENDIX: Normal appendix. PERITONEUM: Unremarkable. No free fluid. No free air. LYMPH NODES: Unremarkable. No enlarged lymph nodes. BLADDER: Unremarkable. REPRODUCTIVE: Unremarkable. BONES: No acute fracture. OTHER FINDINGS: The report concurs with the preliminary [facility] report IMPRESSION: Status post cholecystectomy. Biliary stent in place No acute findings
== END 2018-03-09 05:02 | disposition home or self-care (01) ==
LOC: ED 00:07
DX: R10.9 Unspecified abdominal pain (principal); Z90.49 Acquired absence of other specified parts of digestive tract
CPT/HCPCS: 74177; 80053; 80324; 80345; 80346; 80349; 80353; 80358; 80361; 81003; 82803; 83690; 83735; 83992; 85025; 85610; 85730; 96361; 96374; 99284; J1885; J7030; Q9967

== ENCOUNTER 2018-04-10 23:03 | Observation (INO) | payer OTHER ==
[2018-04-10 23:13] VITALS: BMI 34.9
[2018-04-10] MEDS ORDERED: Sodium Chloride 0.9% 1,000 ML IV STA (23:30)
--- NOTE | 2018-04-11 00:07 | ED PDOC ---
Arrival/HPI - General Chief Complaint: Abdominal Pain Time Seen by Provider: 04/10/18 23:12 Historian: Patient - History of Present Illness Narrative History of Present Illness (Text): 04/10/18 23:59 43yo male with pmhx of DVT, bipolar , present with complaint of intermittent right sided sharp/crampy abdominal pain x days. Patient is s/p cholecystectomy in February with stent placement. He was seen here on 03/09/18 for pain and states he followed up with the Surgeon after coming to the ED and was told that he should go back to the ED for possible stent removal if the pain becomes severe. Admits to nausea. States the last time he was nauseous was yesterday. Denies vomiting, diarrhea, constipation, fever, chills, melena, hematemesis, chest pain, SOB, any other complaint. Past Medical History - Provider Review Nursing Documentation Reviewed: Yes - Cardiac Hx Cardiac Disorders: Yes Hx Hypertension: No - Pulmonary Hx Tuberculosis: No - Neurological Hx Seizures: No - HEENT Hx HEENT Disorder: No - Renal Hx Renal Disorder: No - Endocrine/Metabolic Hx Endocrine Disorders: No - Hematological/Oncological Hx Cancer: No - Integumentary Hx Dermatological Disorder: No - Musculoskeletal/Rheumatological Hx Falls: No - Gastrointestinal Other/Comment: Abdominal pain, vomit, constipation - Genitourinary/Gynecological Hx Sexually Transmitted Diseases: No - Psychiatric Hx Bipolar Disorder: Yes Hx Depression: Yes Hx Substance Use: Yes (opioids) - Surgical History Hx Cholecystectomy: Yes Other/Comment: 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 ago - Anesthesia Hx Anesthesia: Yes Hx Anesthesia Reactions: No Hx Malignant Hyperthermia: No Family/Social History - Physician Review Nursing Documentation Reviewed: Yes Family/Social History: Unknown Family HX Smoking Status: Light Smoker < 10 Cigarettes Daily Hx Alcohol Use: No Hx Substance Use: Yes (opioids) Substance used: heroin Allergies/Home Meds Allergies/Adverse Reactions: Allergies aspirin Allergy (Verified 03/09/18 00:44) RASH egg Allergy (Verified 03/09/18 00:44) RASH peanut Allergy (Verified 03/09/18 00:44) RASH Review of Systems - Physician Review All systems were reviewed & negative as marked: Yes - Review of Systems Constitutional: Normal Eyes: Normal ENT: Normal Respiratory: Normal Cardiovascular: Normal Gastrointestinal: Abdominal Pain, Nausea. absent: Constipation, Diarrhea, Vomiting, Hematochezia, Hematemesis Genitourinary Male: Normal Musculoskeletal: Normal Skin: Normal Neurological: Normal Endocrine: Normal Hemo/Lymphatic: Normal Psychiatric: Normal Physical Exam Vital Signs Reviewed: Yes Vital Signs Temp Pulse Resp BP Pulse Ox 04/10/18 23:25 99.0 F 81 18 146/91 H 97 Temperature: Afebrile Blood Pressure: Normal Pulse: Regular Respiratory Rate: Normal Appearance: Positive for: Well-Appearing, Non-Toxic, Comfortable Pain Distress: None Mental Status: Positive for: Alert and Oriented X 3 - Systems Exam Head: Present: Atraumatic, Normocephalic Pupils: Present: PERRL Extroacular Muscles: Present: EOMI Conjunctiva: Present: Normal Mouth: Present: Moist Mucous Membranes Neck: Present: Normal Range of Motion Respiratory/Chest: Present: Clear to Auscultation, Good Air Exchange. No: R espiratory Distress, Accessory Muscle Use Cardiovascular: Present: Regular Rate and Rhythm, Normal S1, S2. No: Murmurs Abdomen: Present: Tenderness (Diffuse right sided tenderness), Normal Bowel Sounds, Scars (Healed surgical laproscopic scar), Other (Soft). No: Distention, Peritoneal Signs, Rebound, Guarding, McBurney's Point Tender, Rovsing's Sign Present Back: Present: Normal Inspection Upper Extremity: Present: Normal Inspection. No: Cyanosis, Edema Lower Extremity: Present: Normal Inspection. No: Edema Neurological: Present: GCS=15, CN II-XII Intact, Speech Normal Skin: Present: Warm, Dry, Normal Color. No: Rashes Psychiatric: Present: Alert, Oriented x 3, Normal Insight, Normal Concentration Medical Decision Making ED Course and Treatment: 04/11/18 00:35 PT presented to ED for worsening right sided abdominal pain with nausea x days Labs Abd/pelvic CT Case was DW the vice president education, Gary who then DC with Dr. Noriega and states that pt should be seen by GI, who placed the stent. Lab was reviewed without leukocytosis. Elevated LFT was noted which is similar to previous labs Pt however continued to complain of pain Case was SORAIDA Chun who recommends admission of pt for intractable pain and he will see pt in the morning. Plan was DW the pt and he agreed - Medication Orders Current Medication Orders: Sodium Chloride (Sodium Chloride 0.9%) 1,000 mls @ 1,000 mls/hr IV .Q1H STA Stop: 04/11/18 00:29 Discontinued Medications Famotidine (Pepcid) 20 mg IVP STAT STA Stop: 04/10/18 23:31 Ondansetron HCl (Zofran Inj) 4 mg IVP STAT STA Stop: 04/10/18 23:31 Disposition/Present on Arrival - Present on Arrival Any Indicators Present on Arrival: No History of DVT/PE: No History of Uncontrolled Diabetes: No Urinary Catheter: No History of Decub. Ulcer: No History Surgical Site Infection Following: None - Disposition Have Diagnosis and Disposition been Completed?: Yes Diagnosis: Intractable abdominal pain Disposition: HOSPITALIZED Disposition Time: 00:40 Patient Plan: Admission Patient Problems: Current Active Problems Problem Status Onset Intractable abdominal pain Acute Condition: FAIR
[2018-04-11 00:13] LABS: BASO # 0.02 K/mm3 (0.0-2.0); BASO % 0.3 % (0.0-3.0); EOS # 0.4 (0.0-0.7); EOS % 4.5 % (1.5-5.0); HEMOGLOBIN 14.3 g/dL (14.0-18.0); LYMPH # 1.8 (1.2-3.4); MEAN CELL VOLUME 85.8 fl (80.0-105.0); MEAN CORPUSCULAR HEMOGLOBIN 28.5 pg (25.0-35.0); MEAN CORPUSCULAR HGB CONC 33.3 g/dl (31.0-37.0); MEAN PLATELET VOLUME 9.6 fl (7.0-11.0); MONO # 0.8 (0.1-0.6); MONO % 9.8 % (1.0-6.0); RBC 5.01 10^6/uL (3.5-6.1); RED CELL DISTRIBUTION WIDTH 13.3 % (11.5-14.5)
[2018-04-11 00:25] LABS: INR 1.17; PARTIAL THROMBOPLASTIN TIME 38.4 Seconds (26.9-38.3)
[2018-04-11 00:27] LABS: ALB/GLOB RATIO 1.1 (1.1-1.8); ALBUMIN 4.3 g/dL (3.0-4.8); ALT/SGPT 141 U/L (7-56); AST/SGOT 104 U/L (17-59); BLOOD UREA NITROGEN 10 mg/dL (7-21); CALCIUM 9.4 mg/dL (8.4-10.5); GFR NON-AFRICAN AMERICAN > 60; LIPASE 187 U/L (23-300)
--- NOTE | 2018-04-11 02:12 | CP.PCM.HP ---
<Mando Jensen - Last Filed: 04/11/18 05:20> History of Present Illness - History of Present Illness History of Present Illness: Medicine History and Physical for Hospitalist Service, Dr. Rey Jensen, DO PGY-1 This is a 43 y o male with PMhx Bipolar I disorder, DVT of L leg s/p thrombectomy 4 y ago, cocaine and tobacco abuse, and Hepatitis C untreated, who presented to the ED with c/o intermittent R-sided sharp/crampy abdominal pain x 3 days. Pt is s/p cholecystectomy with stent placement in Feb [address]manus and [address] Chun for acute necrotizing cholecystitis. Pt was recently seen in the ED in Mar 2017 with similar chief complaint, was told to f/u with his surgeon as outpatient, and as per pt, was instructed to return to the ED if the pain worsened. Pt denies any inciting factors, or abd pain worsening with food intake. States the pain is currently 3-4/10 in severity, occasionally radiates to the L side of his abd, sometimes to the lateral side underneath his ribs. Denies nausea or vomiting currently. States the last time he was nauseous was yesterday. Also admits to snorting cocaine 3 days ago, admits to recreational use regularly as well. Denies headache, dizziness, chest pain, sob, d/c, urinary complaints, numbness/tingling in extremities, or other symptoms. States he has been able to tolerate PO diet without any concerns. 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 Adam Heart Present on Admission - Present on Admission Any Indicators Present on Admission: No History of DVT/PE: No History of Uncontrolled Diabetes: No Urinary Catheter: No Decubitus Ulcer Present: No Review of Systems - Constitutional Constitutional: absent: Anorexia, Chills, Fatigue, Fever - Cardiovascular Cardiovascular: absent: Chest Pain, Dyspnea on Exertion, Leg Edema, Palpitations, Syncope - Respiratory Respiratory: absent: Cough, Dyspnea, Dyspnea on Exertion, Wheezing - Gastrointestinal Gastrointestinal: Abdominal Pain, Cramping. absent: Belching, Bloating, Constipation, Diarrhea, Dysphagia, Hematemesis, Hematochezia, Loose Stools, Melena, Nausea, Vomiting Past Patient History - Past Medical History & Family History Past Medical History?: No - Past Social History Smoking Status: Light Smoker < 10 Cigarettes Daily - CARDIAC Hx Cardiac Disorders: Yes Hx Hypertension: No - PULMONARY Hx Tuberculosis: No - NEUROLOGICAL Hx Seizures: No - HEENT Hx HEENT Problems: No - RENAL Hx Chronic Kidney Disease: No - ENDOCRINE/METABOLIC Hx Endocrine Disorders: No - HEMATOLOGICAL/ONCOLOGICAL Hx Cancer: No - INTEGUMENTARY Hx Dermatological Problems: No - MUSCULOSKELETAL/RHEUMATOLOGICAL Hx Falls: No - GASTROINTESTINAL Other/Comment: Abdominal pain, vomit, constipation - GENITOURINARY/GYNECOLOGICAL Hx Sexually Transmitted Disorders: No - PSYCHIATRIC Hx Bipolar Disorder: Yes Hx Depression: Yes Hx Substance Use: Yes (opioids) - SURGICAL HISTORY Hx Cholecystectomy: Yes Other/Comment: 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 ago - ANESTHESIA Hx Anesthesia: Yes Hx Anesthesia Reactions: No Hx Malignant Hyperthermia: No Meds Allergies/Adverse Reactions: Allergies Allergy/AdvReac Type Severity Reaction Status Date / Time aspirin Allergy RASH Verified 03/09/18 00:44 egg Allergy RASH Verified 03/09/18 00:44 peanut Allergy RASH Verified 03/09/18 00:44 Physical Exam - Constitutional Appears: Non-toxic, No Acute Distress Additional comments: Poor dentition noted on exam - Head Exam Head Exam: ATRAUMATIC, NORMOCEPHALIC - Eye Exam Eye Exam: EOMI, Normal appearance, PERRL - ENT Exam ENT Exam: Mucous Membranes Moist - Respiratory Exam Respiratory Exam: Clear to Auscultation Bilateral. absent: Rales, Rhonchi, Wheezes - Cardiovascular Exam Cardiovascular Exam: REGULAR RHYTHM, +S1, +S2. absent: Gallop, Rubs, Systolic Murmur - GI/Abdominal Exam GI & Abdominal Exam: Guarding, Normal Bowel Sounds, Soft. absent: Distended Additional comments: Unable to perform deep palpation due to pt experiencing pain - Extremities Exam Extremities exam: Positive for: full ROM, normal capillary refill, normal inspection, pedal pulses present. Negative for: calf tenderness, pedal edema - Neurological Exam Neurological exam: Alert, CN II-XII Intact, Normal Gait, Oriented x3, Reflexes Normal - Skin Skin Exam: Dry, Intact, Normal Color, Warm Results - Vital Signs Recent Vital Signs: Last Vital Signs Temp 98.1 F 04/11/18 01:50 Pulse 67 04/11/18 01:50 Resp 18 04/11/18 01:50 BP 125/72 04/11/18 01:50 Pulse Ox 95 04/11/18 01:50 - Labs Result Diagrams: 04/10/18 23:54 04/10/18 23:54 Labs: Laboratory Results - last 24 hr 04/10/18 04/10/18 04/10/18 23:54 23:54 23:54 WBC 8.0 D RBC 5.01 Hgb 14.3 Hct 43.0 MCV 85.8 MCH 28.5 MCHC 33.3 RDW 13.3 Plt Count 196 MPV 9.6 Neut % (Auto) 62.4 Lymph % (Auto) 23.0 [place] % (Auto) 9.8 H Eos % (Auto) 4.5 Baso % (Auto) 0.3 Lymph # (Auto) 1.8 [place] # (Auto) 0.8 H Eos # (Auto) 0.4 Baso # (Auto) 0.02 Absolute Neuts (auto) 5.00 PT 13.0 H INR 1.17 APTT 38.4 H Sodium 139 Potassium 3.9 Chloride 105 Carbon Dioxide 27 Anion Gap 11 BUN 10 Creatinine 0.7 L Est GFR ( Amer) > 60 Est GFR (Non-Af Amer) > 60 Random Glucose 106 Calcium 9.4 Magnesium 2.0 Total Bilirubin 0.6 AST 104 H D ALT 141 H Alkaline Phosphatase 104 Lactate Dehydrogenase Total Protein 8.2 Albumin 4.3 Globulin 3.9 Albumin/Globulin Ratio 1.1 Lipase 187 04/10/18 23:54 WBC RBC Hgb Hct MCV MCH MCHC RDW Plt Count MPV Neut % (Auto) Lymph % (Auto) [place] % (Auto) Eos % (Auto) Baso % (Auto) Lymph # (Auto) [place] # (Auto) Eos # (Auto) Baso # (Auto) Absolute Neuts (auto) PT INR APTT Sodium Potassium Chloride Carbon Dioxide Anion Gap BUN Creatinine Est GFR ( Amer) Est GFR (Non-Af Amer) Random Glucose Calcium Magnesium Total Bilirubin AST ALT Alkaline Phosphatase Lactate Dehydrogenase 552 Total Protein Albumin Globulin Albumin/Globulin Ratio Lipase Assessment & Plan - Assessment and Plan (Free Text) Assessment: This is a 43 y o male with PMhx Bipolar I disorder, DVT of L leg s/p thrombectomy 4 y ago, cocaine and tobacco abuse, and Hepatitis C untreated, who presented to the ED with c/o intermittent R-sided sharp/crampy abdominal pain x 3 days. Pt is s/p cholecystectomy with stent placement in Feb [address] Mc[address] and Dr[address] Chun for acute necrotizing cholecystitis. Admitted for abdominal pain, r/o biliary stent, cocaine ingestion, hepatitis/cirrhosis as etiology of symptoms. Plan: Abd pain -Admit to remote tele -Prelim Ct abd/pelvis read: prior cholecystectomy, mild amt free pelvic fluid noted, constipation, minimal pneumobilia with stent in place -Lipase wnl -Zofran prn for nausea -GI consulted (Dr. Chun), recs appreciated -NPO -IVF @ 100 cc/hr -Pt not requesting pain medication at this time, will cont to monitor Transaminitis -Could be 2/2 obstruction, Hep C, substance abuse, hypertriglyceridemia, KANG -AST 101, ALT 141 -Total bili 0.6 -Ct abd/pelvis prelim findings as noted above -Pending hep panel, GGT, lipid panel, A1c, HIV Hx cocaine and tobacco abuse -Cessation counseling provided to pt -UDS and EtOH level ordered -Nicotine patch offered Hx bipolar 1 disorder -Not on any current medical therapy as per pt -Will cont to monitor Hx Hep C untreated -Will need to f/u outpatient after discharge re. initiating treatment -Hep panel pending -GI consulted, recs appreciated Hx DVT of L leg s/p thrombectomy 4 y ago -Pt not on any current outpatient anticoagulant therapy, states that his PMD discontinued blood thinner in past -Heparin subQ q8h for DVT ppx PPX: Protonix/Heparin Pt seen, examined with, and plan discussed with Dr. Le, attending physician. Mando Jensen DO PGY-1, Merch[employer]ise [employer] Pager #[phone] <Laron Le - Last Filed: 04/12/18 05:43> Results - Vital Signs Recent Vital Signs: Last Vital Signs Temp 97.3 F L 04/11/18 06:00 Pulse 53 L 04/11/18 06:00 Resp 16 04/11/18 06:00 BP 113/70 04/11/18 06:00 Pulse Ox 93 L 04/11/18 06:00 - Labs Result Diagrams: 04/11/18 12:55 04/11/18 12:55 Labs: Laboratory Results - last 24 hr 04/11/18 04/11/18 04/11/18 03:05 03:05 10:00 WBC RBC Hgb Hct MCV MCH MCHC RDW Plt Count MPV Neut % (Auto) Lymph % (Auto) [place] % (Auto) Eos % (Auto) Baso % (Auto) Lymph # (Auto) [place] # (Auto) Eos # (Auto) Baso # (Auto) Absolute Neuts (auto) Sodium Potassium Chloride Carbon Dioxide Anion Gap BUN Creatinine Est GFR ( Amer) Est GFR (Non-Af Amer) Random Glucose Hemoglobin A1c 5.3 Calcium Total Bilirubin AST ALT Alkaline Phosphatase Total Protein Albumin Globulin Albumin/Globulin Ratio Urine Color Yellow Urine Appearance Clear Urine pH 6.5 Ur Specific [place] 1.025 Urine Protein Negative Urine Glucose (UA) Negative Urine Ketones Negative Urine Blood Negative Urine Nitrate Negative Urine Bilirubin Negative Urine Urobilinogen 0.2 Ur Leukocyte Esterase Negative Urine Opiates Screen Urine Methadone Screen Ur Barbiturates Screen Ur Phencyclidine Scrn Ur Amphetamines Screen U Benzodiazepines Scrn U Oth Cocaine Metabols U Cannabinoids Screen Hepatitis A IgM Ab Negative Hep Bs Antigen Negative Hep B Core IgM Ab Negative Hepatitis C Antibody Reactive 04/11/18 04/11/18 04/11/18 10:00 12:55 12:55 WBC 5.9 D RBC 4.72 Hgb 13.6 L Hct 40.8 L MCV 86.4 MCH 28.8 MCHC 33.3 RDW 13.2 Plt Count 173 MPV 9.5 Neut % (Auto) 60.3 Lymph % (Auto) 26.0 [place] % (Auto) 8.9 H Eos % (Auto) 4.6 Baso % (Auto) 0.2 Lymph # (Auto) 1.5 [place] # (Auto) 0.5 Eos # (Auto) 0.3 Baso # (Auto) 0.01 Absolute Neuts (auto) 3.58 Sodium 139 Potassium 3.8 Chloride 105 Carbon Dioxide 28 Anion Gap 9 L BUN 11 Creatinine 0.8 Est GFR ( Amer) > 60 Est GFR (Non-Af Amer) > 60 Random Glucose 98 Hemoglobin A1c Calcium 9.1 Total Bilirubin 0.8 AST 96 H ALT 130 H Alkaline Phosphatase 102 Total Protein 7.4 Albumin 3.8 Globulin 3.6 Albumin/Globulin Ratio 1.1 Urine Color Urine Appearance Urine pH Ur Specific [place] Urine Protein Urine Glucose (UA) Urine Ketones Urine Blood Urine Nitrate Urine Bilirubin Urine Urobilinogen Ur Leukocyte Esterase Urine Opiates Screen Positive H Urine Methadone Screen Positive H Ur Barbiturates Screen Negative Ur Phencyclidine Scrn Negative Ur Amphetamines Screen Negative U Benzodiazepines Scrn Negative U Oth Cocaine Metabols Positive H U Cannabinoids Screen Negative Hepatitis A IgM Ab Hep Bs Antigen Hep B Core IgM Ab Hepatitis C Antibody Attending/Attestation - Attestation I have personally seen and examined this patient.: Yes I have fully participated in the care of the patient.: Yes I have reviewed all pertinent clinical information: Yes
[2018-04-11] MEDS ORDERED: Sodium Chloride 0.9% 1,000 ML IV SCH (02:15)
[2018-04-11 07:23] VITALS: BP 113/70; PULSE 53; RESP 16; TEMP 97.3; O2SAT 93
--- NOTE | 2018-04-11 09:47 | CT ---
Date of service: 04/11/2018 PROCEDURE: CT Abdomen and Pelvis without intravenous contrast HISTORY: Unspecified abdominal pain. COMPARISON: 03/09/2018. TECHNIQUE: Unenhanced. Neither IV nor oral contrast administered Radiation dose: Total exam DLP = [id number] mGy-cm. This CT exam was performed using one or more of the following dose reduction techniques: Automated exposure control, adjustment of the mA and/or kV according to patient size, and/or use of iterative reconstruction technique. FINDINGS: LOWER THORAX: Unremarkable. LIVER: Unremarkable. No gross lesion or ductal dilatation. Air identified in non dilated bile ducts consistent with the presence of an indwelling stent. GALLBLADDER AND BILE DUCTS: Prior cholecystectomy. Common bile duct stent identified, stable position. PANCREAS: Unremarkable. No gross lesion or ductal dilatation. SPLEEN: Splenomegaly. Orthogonal measurements 12 x 15.1 x 5.8 cm. Unchanged compared to the prior study. ADRENALS: Unremarkable. No mass. KIDNEYS AND URETERS: Left kidney: Solitary upper tract calculus 4 mm. No hydronephrosis. No solid mass. Right kidney: Unremarkable. VASCULATURE: Unremarkable. No aortic aneurysm. No atherosclerotic calcification or mural plaque present. BOWEL: Unremarkable. No obstruction. No gross mural thickening. APPENDIX: No abnormalities to suggest acute appendicitis. No right lower quadrant inflammatory processes identified. PERITONEUM: Unremarkable. No free fluid. No free air. LYMPH NODES: Unremarkable. No enlarged lymph nodes. BLADDER: Unremarkable. REPRODUCTIVE: Unremarkable. BONES: No acute fracture. OTHER FINDINGS: None. IMPRESSION: No acute or significant findings related to/ accounting for the clinical presentation. Additional benign and/or incidental findings described above. No significant interval change compared to the prior examination(s). Concordant findings (preliminary report) provided by [facility].
[2018-04-11 10:17] LABS: PH,URINE 6.5 (4.7-8.0); URINE BILIRUBIN NEGATIVE (NEGATIVE); URINE BLOOD NEGATIVE (NEGATIVE); URINE GLUCOSE (UA) NEGATIVE (NEGATIVE); URINE LEUKOCYTE ESTERASE NEGATIVE Leu/uL (NEGATIVE); URINE PROTEIN NEGATIVE mg/dL (<30 mg/dL); URINE UROBILINOGEN 0.2 E.U./dL (<1 E.U./dL)
[2018-04-11 10:21] LABS: URINE APPEARANCE CLEAR (CLEAR); URINE COLOR YELLOW (YELLOW)
[2018-04-11 10:56] LABS: BARBITURATES, UR NEGATIVE (NEGATIVE)
[2018-04-11 10:58] LABS: BENZODIAZEPINES, UR NEGATIVE (NEGATIVE); OPIATES, UR POSITIVE (NEGATIVE); PHENCYCLIDINE, UR NEGATIVE (NEGATIVE)
--- NOTE | 2018-04-11 11:03 | CP.PCM.CON ---
<Charisma Comer - Last Filed: 04/11/18 10:44> History of Present Illness - History of Present Illness History of Present Illness: Gastroenterology Fellow/PGY6 Consult Note 43 year old male with PMH of BiPolar disorder, Polysubstance abuse, and prior left leg DVT s/p thrombectomy presenting with abdominal pain. Patient notes he has been doing well until three days ago after discharge 8 after cholecystectomy and biliary stent placement. Patient endorses progressive right upper quadrant pressure-like pain for three days. Associated nausea with night-time chills and sweats. He notes the pain is slightly improved since admission. Denies vomiting, hematemesis, heartburn, acid reflux, pruritis, jaundice, confusion, diarrhea, melena, hematochezia, or unintentional weight loss. Prior EGD/ERCP 02/2018 for choledocholithiasis s/p sphincterotomy, balloon sweep, stone extraction, and plastic stent placement due to sepsis. Family History- denies colon cancer, stomach cancer Social History- intranasal heroin and cocaine use; denies EtOH or tobacco use recently - previous tobacco use Surgical History- left leg thrombectomy for DVT Review of Systems - Review of Systems Review of Systems: 12-point review of systems negative except for as above Past Patient History - Past Medical History & Family History Past Medical History?: No - Past Social History Smoking Status: Light Smoker < 10 Cigarettes Daily - CARDIAC Hx Cardiac Disorders: Yes Hx Hypertension: No - PULMONARY Hx Tuberculosis: No - NEUROLOGICAL Hx Seizures: No - HEENT Hx HEENT Problems: No - RENAL Hx Chronic Kidney Disease: No - ENDOCRINE/METABOLIC Hx Endocrine Disorders: No - HEMATOLOGICAL/ONCOLOGICAL Hx Cancer: No - INTEGUMENTARY Hx Dermatological Problems: No - MUSCULOSKELETAL/RHEUMATOLOGICAL Hx Falls: No - GASTROINTESTINAL Other/Comment: Abdominal pain, vomit, constipation - GENITOURINARY/GYNECOLOGICAL Hx Sexually Transmitted Disorders: No - PSYCHIATRIC Hx Bipolar Disorder: Yes Hx Depression: Yes Hx Substance Use: Yes (opioids) - SURGICAL HISTORY Hx Cholecystectomy: Yes Other/Comment: 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 ago - ANESTHESIA Hx Anesthesia: Yes Hx Anesthesia Reactions: No Hx Malignant Hyperthermia: No Meds Allergies/Adverse Reactions: Allergies Allergy/AdvReac Type Severity Reaction Status Date / Time aspirin Allergy RASH Verified 03/09/18 00:44 egg Allergy RASH Verified 03/09/18 00:44 peanut Allergy RASH Verified 03/09/18 00:44 - Medications Medications: Current Medications Heparin Sodium (Porcine) (Heparin) 5,000 units SC Q8 [facility]; Protocol Last Admin: 04/11/18 05:40 Dose: 5,000 units Sodium Chloride (Sodium Chloride 0.9%) 1,000 mls @ 100 mls/hr IV .Q10H [facility] Last Admin: 04/11/18 02:46 Dose: 100 mls/hr Nicotine (Nicoderm Cq) 1 patch TD DAILY [facility] Last Admin: 04/11/18 09:42 Dose: 1 patch Ondansetron HCl (Zofran Inj) 4 mg IVP Q6H PRN PRN Reason: Nausea/Vomiting Pantoprazole Sodium (Protonix Inj) 40 mg IVP DAILY [facility] Last Admin: 04/11/18 09:42 Dose: 40 mg Physical Exam - Constitutional Appears: Non-toxic, No Acute Distress - Head Exam Head Exam: ATRAUMATIC, NORMOCEPHALIC - Eye Exam Eye Exam: EOMI, PERRL. absent: Scleral icterus Pupil Exam: PERRL. absent: Miosis, Mydriatic - ENT Exam ENT Exam: Mucous Membranes Moist, Normal Oropharynx - Neck Exam Neck exam: Positive for: Full Rom, Normal Inspection - Respiratory Exam Respiratory Exam: Clear to Auscultation Bilateral. absent: Rales, Rhonchi, Wheezes - Cardiovascular Exam Cardiovascular Exam: RRR, +S1, +S2. absent: Gallop, Rubs - GI/Abdominal Exam GI & Abdominal Exam: Normal Bowel Sounds, Organomegaly, Soft, Tenderness. absent: Distended, Firm, Guarding, Rebound, Rigid - Extremities Exam Extremities exam: Positive for: normal inspection, pedal edema - Neurological Exam Neurological exam: Alert - Psychiatric Exam Psychiatric exam: Normal Affect, Normal Mood - Skin Skin Exam: Dry, Intact, Normal Color, Warm Results - Vital Signs Recent Vital Signs: Last Vital Signs Temp 97.3 F L 04/11/18 06:00 Pulse 53 L 04/11/18 06:00 Resp 16 04/11/18 06:00 BP 113/70 04/11/18 06:00 Pulse Ox 93 L 04/11/18 06:00 - Labs Result Diagrams: 04/10/18 23:54 04/10/18 23:54 Labs: Laboratory Results - last 24 hr 04/10/18 04/10/18 04/10/18 23:54 23:54 23:54 WBC 8.0 D RBC 5.01 Hgb 14.3 Hct 43.0 MCV 85.8 MCH 28.5 MCHC 33.3 RDW 13.3 Plt Count 196 MPV 9.6 Neut % (Auto) 62.4 Lymph % (Auto) 23.0 [place] % (Auto) 9.8 H Eos % (Auto) 4.5 Baso % (Auto) 0.3 Lymph # (Auto) 1.8 [place] # (Auto) 0.8 H Eos # (Auto) 0.4 Baso # (Auto) 0.02 Absolute Neuts (auto) 5.00 PT 13.0 H INR 1.17 APTT 38.4 H Sodium 139 Potassium 3.9 Chloride 105 Carbon Dioxide 27 Anion Gap 11 BUN 10 Creatinine 0.7 L Est GFR ( Amer) > 60 Est GFR (Non-Af Amer) > 60 Random Glucose 106 Calcium 9.4 Phosphorus Magnesium 2.0 Total Bilirubin 0.6 GGT AST 104 H D ALT 141 H Alkaline Phosphatase 104 Lactate Dehydrogenase Total Protein 8.2 Albumin 4.3 Globulin 3.9 Albumin/Globulin Ratio 1.1 Triglycerides Cholesterol LDL Cholesterol Direct HDL Cholesterol Lipase 187 Urine Color Urine Appearance Urine pH Ur Specific [place] Urine Protein Urine Glucose (UA) Urine Ketones Urine Blood Urine Nitrate Urine Bilirubin Urine Urobilinogen Ur Leukocyte Esterase Alcohol, Quantitative 04/10/18 04/11/18 04/11/18 23:54 03:05 03:05 WBC RBC Hgb Hct MCV MCH MCHC RDW Plt Count MPV Neut % (Auto) Lymph % (Auto) [place] % (Auto) Eos % (Auto) Baso % (Auto) Lymph # (Auto) [place] # (Auto) Eos # (Auto) Baso # (Auto) Absolute Neuts (auto) PT INR APTT Sodium Potassium Chloride Carbon Dioxide Anion Gap BUN Creatinine Est GFR ( Amer) Est GFR (Non-Af Amer) Random Glucose Calcium Phosphorus 4.4 Magnesium 2.1 Total Bilirubin GGT 49 AST ALT Alkaline Phosphatase Lactate Dehydrogenase 552 Total Protein Albumin Globulin Albumin/Globulin Ratio Triglycerides 113 Cholesterol 124 L LDL Cholesterol Direct 50 HDL Cholesterol 42 Lipase Urine Color Urine Appearance Urine pH Ur Specific [place] Urine Protein Urine Glucose (UA) Urine Ketones Urine Blood Urine Nitrate Urine Bilirubin Urine Urobilinogen Ur Leukocyte Esterase Alcohol, Quantitative < 10 02/08/19 10:00 WBC RBC Hgb Hct MCV MCH MCHC RDW Plt Count MPV Neut % (Auto) Lymph % (Auto) [place] % (Auto) Eos % (Auto) Baso % (Auto) Lymph # (Auto) [place] # (Auto) Eos # (Auto) Baso # (Auto) Absolute Neuts (auto) PT INR APTT Sodium Potassium Chloride Carbon Dioxide Anion Gap BUN Creatinine Est GFR ( Amer) Est GFR (Non-Af Amer) Random Glucose Calcium Phosphorus Magnesium Total Bilirubin GGT AST ALT Alkaline Phosphatase Lactate Dehydrogenase Total Protein Albumin Globulin Albumin/Globulin Ratio Triglycerides Cholesterol LDL Cholesterol Direct HDL Cholesterol Lipase Urine Color Yellow Urine Appearance Clear Urine pH 6.5 Ur Specific [place] 1.025 Urine Protein Negative Urine Glucose (UA) Negative Urine Ketones Negative Urine Blood Negative Urine Nitrate Negative Urine Bilirubin Negative Urine Urobilinogen 0.2 Ur Leukocyte Esterase Negative Alcohol, Quantitative Assessment & Plan - Assessment and Plan (Free Text) Assessment: 43 year old male with PMH of BiPolar disorder, Polysubstance abuse, and prior left leg DVT s/p thrombectomy presenting with abdominal pain. Prior EGD/ERCP 02/2018 for choledocholithiasis s/p sphincterotomy, balloon sweep, stone extraction, and plastic stent placement due to sepsis. Plan: -low suspicion for cholangitis -unchanged LFTs -no signs of post-cholecystectomy complication -requires biliary stent removal with previous placement 02/2018 -will discuss potential add-on for ERCP today -NPO <Cj Chun V - Last Filed: 04/12/18 00:45> Results - Vital Signs Recent Vital Signs: Last Vital Signs Temp 97.3 F L 04/11/18 06:00 Pulse 53 L 04/11/18 06:00 Resp 16 04/11/18 06:00 BP 113/70 04/11/18 06:00 Pulse Ox 93 L 04/11/18 06:00 - Labs Result Diagrams: 04/11/18 12:55 04/11/18 12:55 Labs: Laboratory Results - last 24 hr 04/10/18 04/11/18 04/11/18 23:54 03:05 03:05 WBC RBC Hgb Hct MCV MCH MCHC RDW Plt Count MPV Neut % (Auto) Lymph % (Auto) [place] % (Auto) Eos % (Auto) Baso % (Auto) Lymph # (Auto) [place] # (Auto) Eos # (Auto) Baso # (Auto) Absolute Neuts (auto) Sodium Potassium Chloride Carbon Dioxide Anion Gap BUN Creatinine Est GFR ( Amer) Est GFR (Non-Af Amer) Random Glucose Hemoglobin A1c Calcium Phosphorus 4.4 Magnesium 2.1 Total Bilirubin GGT 49 AST ALT Alkaline Phosphatase Lactate Dehydrogenase 552 Total Protein Albumin Globulin Albumin/Globulin Ratio Triglycerides 113 Cholesterol 124 L LDL Cholesterol Direct 50 HDL Cholesterol 42 Urine Color Urine Appearance Urine pH Ur Specific [place] Urine Protein Urine Glucose (UA) Urine Ketones Urine Blood Urine Nitrate Urine Bilirubin Urine Urobilinogen Ur Leukocyte Esterase Urine Opiates Screen Urine Methadone Screen Ur Barbiturates Screen Ur Phencyclidine Scrn Ur Amphetamines Screen U Benzodiazepines Scrn U Oth Cocaine Metabols U Cannabinoids Screen Alcohol, Quantitative Hepatitis A IgM Ab Negative Hep Bs Antigen Negative Hep B Core IgM Ab Negative Hepatitis C Antibody Reactive 04/11/18 04/11/18 04/11/18 03:05 03:05 10:00 WBC RBC Hgb Hct MCV MCH MCHC RDW Plt Count MPV Neut % (Auto) Lymph % (Auto) [place] % (Auto) Eos % (Auto) Baso % (Auto) Lymph # (Auto) [place] # (Auto) Eos # (Auto) Baso # (Auto) Absolute Neuts (auto) Sodium Potassium Chloride Carbon Dioxide Anion Gap BUN Creatinine Est GFR ( Amer) Est GFR (Non-Af Amer) Random Glucose Hemoglobin A1c 5.3 Calcium Phosphorus Magnesium Total Bilirubin GGT AST ALT Alkaline Phosphatase Lactate Dehydrogenase Total Protein Albumin Globulin Albumin/Globulin Ratio Triglycerides Cholesterol LDL Cholesterol Direct HDL Cholesterol Urine Color Yellow Urine Appearance Clear Urine pH 6.5 Ur Specific [place] 1.025 Urine Protein Negative Urine Glucose (UA) Negative Urine Ketones Negative Urine Blood Negative Urine Nitrate Negative Urine Bilirubin Negative Urine Urobilinogen 0.2 Ur Leukocyte Esterase Negative Urine Opiates Screen Urine Methadone Screen Ur Barbiturates Screen Ur Phencyclidine Scrn Ur Amphetamines Screen U Benzodiazepines Scrn U Oth Cocaine Metabols U Cannabinoids Screen Alcohol, Quantitative < 10 Hepatitis A IgM Ab Hep Bs Antigen Hep B Core IgM Ab Hepatitis C Antibody 04/11/18 04/11/18 04/11/18 10:00 12:55 12:55 WBC 5.9 D RBC 4.72 Hgb 13.6 L Hct 40.8 L MCV 86.4 MCH 28.8 MCHC 33.3 RDW 13.2 Plt Count 173 MPV 9.5 Neut % (Auto) 60.3 Lymph % (Auto) 26.0 [place] % (Auto) 8.9 H Eos % (Auto) 4.6 Baso % (Auto) 0.2 Lymph # (Auto) 1.5 [place] # (Auto) 0.5 Eos # (Auto) 0.3 Baso # (Auto) 0.01 Absolute Neuts (auto) 3.58 Sodium 139 Potassium 3.8 Chloride 105 Carbon Dioxide 28 Anion Gap 9 L BUN 11 Creatinine 0.8 Est GFR ( Amer) > 60 Est GFR (Non-Af Amer) > 60 Random Glucose 98 Hemoglobin A1c Calcium 9.1 Phosphorus Magnesium Total Bilirubin 0.8 GGT AST 96 H ALT 130 H Alkaline Phosphatase 102 Lactate Dehydrogenase Total Protein 7.4 Albumin 3.8 Globulin 3.6 Albumin/Globulin Ratio 1.1 Triglycerides Cholesterol LDL Cholesterol Direct HDL Cholesterol Urine Color Urine Appearance Urine pH Ur Specific [place] Urine Protein Urine Glucose (UA) Urine Ketones Urine Blood Urine Nitrate Urine Bilirubin Urine Urobilinogen Ur Leukocyte Esterase Urine Opiates Screen Positive H Urine Methadone Screen Positive H Ur Barbiturates Screen Negative Ur Phencyclidine Scrn Negative Ur Amphetamines Screen Negative U Benzodiazepines Scrn Negative U Oth Cocaine Metabols Positive H U Cannabinoids Screen Negative Alcohol, Quantitative Hepatitis A IgM Ab Hep Bs Antigen Hep B Core IgM Ab Hepatitis C Antibody Attending/Attestation - Attestation I have personally seen and examined this patient.: Yes I have fully participated in the care of the patient.: Yes I have reviewed all pertinent clinical information: Yes
--- NOTE | 2018-04-11 12:13 | CP.PCM.CON ---
History of Present Illness - History of Present Illness History of Present Illness: Surgery consult note, Dr Constantino Reason for consult: persistent abdominal pain s/p lap cristiana 43 y/o male with PMH of Bipolar I disorder, DVT of L leg s/p thrombectomy 4 y ago, cocaine and tobacco abuse, and Hepatitis C untreated, who presented to the ED with persistent abdominal pain since surgery. Pt is s/p cholecystectomy with stent placement in Feb [address]manus and [address] Chun for acute necrotizing cholecystitis. Pain is located in RUQ area, sharp, intermittent, has been progressive x3 days, radiates to the RUQ area and to the back, positional, not related to meals, partially alleviated with Motrin. Pain is associated with nausea, diaphoresis. 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; admits to smoking cigarettes 1.5 ppd x 15 y; admits to snorting cocaine regularly; denies EtOH or other illicit drug use Past Patient History - Past Medical History & Family History Past Medical History?: No - Past Social History Smoking Status: Light Smoker < 10 Cigarettes Daily - CARDIAC Hx Cardiac Disorders: Yes Hx Hypertension: No - PULMONARY Hx Tuberculosis: No - NEUROLOGICAL Hx Seizures: No - HEENT Hx HEENT Problems: No - RENAL Hx Chronic Kidney Disease: No - ENDOCRINE/METABOLIC Hx Endocrine Disorders: No - HEMATOLOGICAL/ONCOLOGICAL Hx Cancer: No - INTEGUMENTARY Hx Dermatological Problems: No - MUSCULOSKELETAL/RHEUMATOLOGICAL Hx Falls: No - GASTROINTESTINAL Other/Comment: Abdominal pain, vomit, constipation - GENITOURINARY/GYNECOLOGICAL Hx Sexually Transmitted Disorders: No - PSYCHIATRIC Hx Bipolar Disorder: Yes Hx Depression: Yes Hx Substance Use: Yes (opioids) - SURGICAL HISTORY Hx Cholecystectomy: Yes Other/Comment: 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 ago - ANESTHESIA Hx Anesthesia: Yes Hx Anesthesia Reactions: No Hx Malignant Hyperthermia: No Meds Allergies/Adverse Reactions: Allergies Allergy/AdvReac Type Severity Reaction Status Date / Time aspirin Allergy RASH Verified 03/09/18 00:44 egg Allergy RASH Verified 03/09/18 00:44 peanut Allergy RASH Verified 03/09/18 00:44 - Medications Medications: Current Medications Heparin Sodium (Porcine) (Heparin) 5,000 units SC Q8 [facility]; Protocol Last Admin: 04/11/18 05:40 Dose: 5,000 units Sodium Chloride (Sodium Chloride 0.9%) 1,000 mls @ 100 mls/hr IV .Q10H [facility] Last Admin: 04/11/18 02:46 Dose: 100 mls/hr Nicotine (Nicoderm Cq) 1 patch TD DAILY [facility] Last Admin: 04/11/18 09:42 Dose: 1 patch Ondansetron HCl (Zofran Inj) 4 mg IVP Q6H PRN PRN Reason: Nausea/Vomiting Pantoprazole Sodium (Protonix Inj) 40 mg IVP DAILY [facility] Last Admin: 04/11/18 09:42 Dose: 40 mg Physical Exam - Constitutional Appears: Well, No Acute Distress - Head Exam Head Exam: ATRAUMATIC, NORMAL INSPECTION, NORMOCEPHALIC - ENT Exam ENT Exam: Mucous Membranes Moist, Normal Exam - Neck Exam Neck exam: Positive for: Normal Inspection - Respiratory Exam Respiratory Exam: Clear to Auscultation Bilateral, NORMAL BREATHING PATTERN - Cardiovascular Exam Cardiovascular Exam: REGULAR RHYTHM - GI/Abdominal Exam GI & Abdominal Exam: Normal Bowel Sounds, Soft, Tenderness (mild tender RUQ). absent: Guarding, Hernia, Mass, Organomegaly, Rebound, Rigid - Neurological Exam Neurological exam: Alert, Oriented x3 - Psychiatric Exam Psychiatric exam: Normal Affect, Normal Mood - Skin Skin Exam: Dry, Intact, Normal Color, Warm Results - Vital Signs Recent Vital Signs: Last Vital Signs Temp 97.3 F L 04/11/18 06:00 Pulse 53 L 04/11/18 06:00 Resp 16 04/11/18 06:00 BP 113/70 04/11/18 06:00 Pulse Ox 93 L 04/11/18 06:00 - Labs Result Diagrams: 04/10/18 23:54 04/10/18 23:54 Labs: Laboratory Results - last 24 hr 04/10/18 04/10/18 04/10/18 23:54 23:54 23:54 WBC 8.0 D RBC 5.01 Hgb 14.3 Hct 43.0 MCV 85.8 MCH 28.5 MCHC 33.3 RDW 13.3 Plt Count 196 MPV 9.6 Neut % (Auto) 62.4 Lymph % (Auto) 23.0 [place] % (Auto) 9.8 H Eos % (Auto) 4.5 Baso % (Auto) 0.3 Lymph # (Auto) 1.8 [place] # (Auto) 0.8 H Eos # (Auto) 0.4 Baso # (Auto) 0.02 Absolute Neuts (auto) 5.00 PT 13.0 H INR 1.17 APTT 38.4 H Sodium 139 Potassium 3.9 Chloride 105 Carbon Dioxide 27 Anion Gap 11 BUN 10 Creatinine 0.7 L Est GFR ( Amer) > 60 Est GFR (Non-Af Amer) > 60 Random Glucose 106 Hemoglobin A1c Calcium 9.4 Phosphorus Magnesium 2.0 Total Bilirubin 0.6 GGT AST 104 H D ALT 141 H Alkaline Phosphatase 104 Lactate Dehydrogenase Total Protein 8.2 Albumin 4.3 Globulin 3.9 Albumin/Globulin Ratio 1.1 Triglycerides Cholesterol LDL Cholesterol Direct HDL Cholesterol Lipase 187 Urine Color Urine Appearance Urine pH Ur Specific [place] Urine Protein Urine Glucose (UA) Urine Ketones Urine Blood Urine Nitrate Urine Bilirubin Urine Urobilinogen Ur Leukocyte Esterase Urine Opiates Screen Urine Methadone Screen Ur Barbiturates Screen Ur Phencyclidine Scrn Ur Amphetamines Screen U Benzodiazepines Scrn U Oth Cocaine Metabols U Cannabinoids Screen Alcohol, Quantitative 04/10/18 04/11/18 04/11/18 23:54 03:05 03:05 WBC RBC Hgb Hct MCV MCH MCHC RDW Plt Count MPV Neut % (Auto) Lymph % (Auto) [place] % (Auto) Eos % (Auto) Baso % (Auto) Lymph # (Auto) [place] # (Auto) Eos # (Auto) Baso # (Auto) Absolute Neuts (auto) PT INR APTT Sodium Potassium Chloride Carbon Dioxide Anion Gap BUN Creatinine Est GFR ( Amer) Est GFR (Non-Af Amer) Random Glucose Hemoglobin A1c 5.3 Calcium Phosphorus 4.4 Magnesium 2.1 Total Bilirubin GGT 49 AST ALT Alkaline Phosphatase Lactate Dehydrogenase 552 Total Protein Albumin Globulin Albumin/Globulin Ratio Triglycerides 113 Cholesterol 124 L LDL Cholesterol Direct 50 HDL Cholesterol 42 Lipase Urine Color Urine Appearance Urine pH Ur Specific [place] Urine Protein Urine Glucose (UA) Urine Ketones Urine Blood Urine Nitrate Urine Bilirubin Urine Urobilinogen Ur Leukocyte Esterase Urine Opiates Screen Urine Methadone Screen Ur Barbiturates Screen Ur Phencyclidine Scrn Ur Amphetamines Screen U Benzodiazepines Scrn U Oth Cocaine Metabols U Cannabinoids Screen Alcohol, Quantitative 04/11/18 04/11/18 04/11/18 03:05 10:00 10:00 WBC RBC Hgb Hct MCV MCH MCHC RDW Plt Count MPV Neut % (Auto) Lymph % (Auto) [place] % (Auto) Eos % (Auto) Baso % (Auto) Lymph # (Auto) [place] # (Auto) Eos # (Auto) Baso # (Auto) Absolute Neuts (auto) PT INR APTT Sodium Potassium Chloride Carbon Dioxide Anion Gap BUN Creatinine Est GFR ( Amer) Est GFR (Non-Af Amer) Random Glucose Hemoglobin A1c Calcium Phosphorus Magnesium Total Bilirubin GGT AST ALT Alkaline Phosphatase Lactate Dehydrogenase Total Protein Albumin Globulin Albumin/Globulin Ratio Triglycerides Cholesterol LDL Cholesterol Direct HDL Cholesterol Lipase Urine Color Yellow Urine Appearance Clear Urine pH 6.5 Ur Specific [place] 1.025 Urine Protein Negative Urine Glucose (UA) Negative Urine Ketones Negative Urine Blood Negative Urine Nitrate Negative Urine Bilirubin Negative Urine Urobilinogen 0.2 Ur Leukocyte Esterase Negative Urine Opiates Screen Positive H Urine Methadone Screen Positive H Ur Barbiturates Screen Negative Ur Phencyclidine Scrn Negative Ur Amphetamines Screen Negative U Benzodiazepines Scrn Negative U Oth Cocaine Metabols Positive H U Cannabinoids Screen Negative Alcohol, Quantitative < 10 Assessment & Plan - Assessment and Plan (Free Text) Assessment: 43 y/o male with persistent RUQ abd pain s/p lap cholecystectomy with stent placement in Feb 2018 transaminitis substance abuse hepatitis C untreated Plan: -no surgical intervention needed at the present time -CT A/P: no acute findings -GI following -continue management per primary team -further recs per surgical attending Dr. Dougie Akins, DO
[2018-04-11 13:02] LABS: BASO # 0.01 K/mm3 (0.0-2.0); BASO % 0.2 % (0.0-3.0); EOS # 0.3 (0.0-0.7); EOS % 4.6 % (1.5-5.0); HEMOGLOBIN 13.6 g/dL (14.0-18.0); LYMPH # 1.5 (1.2-3.4); MEAN CELL VOLUME 86.4 fl (80.0-105.0); MEAN CORPUSCULAR HEMOGLOBIN 28.8 pg (25.0-35.0); MEAN CORPUSCULAR HGB CONC 33.3 g/dl (31.0-37.0); MEAN PLATELET VOLUME 9.5 fl (7.0-11.0); MONO # 0.5 (0.1-0.6); MONO % 8.9 % (1.0-6.0); RBC 4.72 10^6/uL (3.5-6.1); RED CELL DISTRIBUTION WIDTH 13.2 % (11.5-14.5); WHITE BLOOD COUNT 5.9 10^3/uL (4.5-11.0)
[2018-04-11 13:15] LABS: ALB/GLOB RATIO 1.1 (1.1-1.8); ALBUMIN 3.8 g/dL (3.0-4.8); ALT/SGPT 130 U/L (7-56); AST/SGOT 96 U/L (17-59); BLOOD UREA NITROGEN 11 mg/dL (7-21); CALCIUM 9.1 mg/dL (8.4-10.5); GFR NON-AFRICAN AMERICAN > 60
[2018-04-11 17:12] LABS: HEPATITIS B SURFACE AG Negative (NEGATIVE)
[2018-04-11 17:18] LABS: HEPATITIS A IGM NEGATIVE (NEGATIVE); HEPATITIS B CORE AB NEGATIVE (NEGATIVE)
[2018-04-11 17:47] LABS: HEPATITIS C ANTIBODY REACTIVE (NEGATIVE)
--- NOTE | 2018-04-11 18:21 | CP.PCM.DIS ---
<Emre Bass - Last Filed: 04/11/18 18:21> Provider - Provider Date of Admission: 04/11/18 00:34 Attending physician: Jonathan Page MD Primary care physician: Adam Heart MD Consults: 04/11/18 02:16 Gastroenterology Consult Routine Comment: Consulting Provider: Cj Chun V Consulting Physician: Cj Chun V Reason for Consult: abd pain, hx biliary stent in Feb 2018, Hep C untx 04/11/18 11:01 Physician Consult Routine Comment: Consulting Provider: Sea Mcmanus Consulting Physician: Sea Mcmanus Reason for Consult: abd pain s/p [place] Time Spent in preparation of Discharge (in minutes): 35 Diagnosis - Discharge Diagnosis (1) Intractable abdominal pain Status: Acute Hospital Course - Lab Results Lab Results: Most Recent Lab Values WBC 5.9 10^3/uL (4.5-11.0) D 04/11/18 12:55 RBC 4.72 10^6/uL (3.5-6.1) 04/11/18 12:55 Hgb 13.6 g/dL (14.0-18.0) L 04/11/18 12:55 Hct 40.8 % (42.0-52.0) L 04/11/18 12:55 MCV 86.4 fl (80.0-105.0) 04/11/18 12:55 MCH 28.8 pg (25.0-35.0) 04/11/18 12:55 MCHC 33.3 g/dl (31.0-37.0) 04/11/18 12:55 RDW 13.2 % (11.5-14.5) 04/11/18 12:55 Plt Count 173 10^3/uL (120.0-450.0) 04/11/18 12:55 MPV 9.5 fl (7.0-11.0) 04/11/18 12:55 Neut % (Auto) 60.3 % (50.0-68.0) 04/11/18 12:55 Lymph % (Auto) 26.0 % (22.0-35.0) 04/11/18 12:55 [place] % (Auto) 8.9 % (1.0-6.0) H 04/11/18 12:55 Eos % (Auto) 4.6 % (1.5-5.0) 04/11/18 12:55 Baso % (Auto) 0.2 % (0.0-3.0) 04/11/18 12:55 Lymph # (Auto) 1.5 (1.2-3.4) 04/11/18 12:55 [place] # (Auto) 0.5 (0.1-0.6) 04/11/18 12:55 Eos # (Auto) 0.3 (0.0-0.7) 04/11/18 12:55 Baso # (Auto) 0.01 K/mm3 (0.0-2.0) 04/11/18 12:55 Absolute Neuts (auto) 3.58 (1.4-6.5) 04/11/18 12:55 PT 13.0 SECONDS (9.4-12.5) H 04/10/18 23:54 INR 1.17 04/10/18 23:54 APTT 38.4 Seconds (26.9-38.3) H 04/10/18 23:54 Sodium 139 mmol/L (132-148) 04/11/18 12:55 Potassium 3.8 mmol/L (3.6-5.0) 04/11/18 12:55 Chloride 105 mmol/L (98-107) 04/11/18 12:55 Carbon Dioxide 28 mmol/L (21-33) 04/11/18 12:55 Anion Gap 9 (10-20) L 04/11/18 12:55 BUN 11 mg/dL (7-21) 04/11/18 12:55 Creatinine 0.8 mg/dl (0.8-1.5) 04/11/18 12:55 Est GFR ( Amer) > 60 04/11/18 12:55 Est GFR (Non-Af Amer) > 60 04/11/18 12:55 Random Glucose 98 mg/dL (70-110) 04/11/18 12:55 Hemoglobin A1c 5.3 % (4.2-6.5) 04/11/18 03:05 Calcium 9.1 mg/dL (8.4-10.5) 04/11/18 12:55 Phosphorus 4.4 mg/dL (2.5-4.5) 04/11/18 03:05 Magnesium 2.1 mg/dL (1.7-2.2) 04/11/18 03:05 Total Bilirubin 0.8 mg/dL (0.2-1.3) 04/11/18 12:55 GGT 49 U/L (8-78) 04/11/18 03:05 AST 96 U/L (17-59) H 04/11/18 12:55 ALT 130 U/L (7-56) H 04/11/18 12:55 Alkaline Phosphatase 102 U/L (38-126) 04/11/18 12:55 Lactate Dehydrogenase 552 U/L (333-699) 04/10/18 23:54 Total Protein 7.4 g/dL (5.8-8.3) 04/11/18 12:55 Albumin 3.8 g/dL (3.0-4.8) 04/11/18 12:55 Globulin 3.6 gm/dL 04/11/18 12:55 Albumin/Globulin Ratio 1.1 (1.1-1.8) 04/11/18 12:55 Triglycerides 113 mg/dL (35-160) 04/11/18 03:05 Cholesterol 124 mg/dL (130-200) L 04/11/18 03:05 LDL Cholesterol Direct 50 mg/dL (0-129) 04/11/18 03:05 HDL Cholesterol 42 mg/dL (29-60) 04/11/18 03:05 Lipase 187 U/L (23-300) 04/10/18 23:54 Urine Color Yellow (YELLOW) 04/11/18 10:00 Urine Appearance Clear (CLEAR) 04/11/18 10:00 Urine pH 6.5 (4.7-8.0) 04/11/18 10:00 Ur Specific [place] 1.025 (1.005-1.035) 04/11/18 10:00 Urine Protein Negative mg/dL (<30 mg/dL) 04/11/18 10:00 Urine Glucose (UA) Negative mg/dL (NEGATIVE) 04/11/18 10:00 Urine Ketones Negative mg/dL (NEGATIVE) 04/11/18 10:00 Urine Blood Negative (NEGATIVE) 04/11/18 10:00 Urine Nitrate Negative (NEGATIVE) 04/11/18 10:00 Urine Bilirubin Negative (NEGATIVE) 04/11/18 10:00 Urine Urobilinogen 0.2 E.U./dL (<1 E.U./dL) 04/11/18 10:00 Ur Leukocyte Esterase Negative Trista/uL (NEGATIVE) 04/11/18 10:00 Urine Opiates Screen Positive (NEGATIVE) H 04/11/18 10:00 Urine Methadone Screen Positive (NEGATIVE) H 04/11/18 10:00 Ur Barbiturates Screen Negative (NEGATIVE) 04/11/18 10:00 Ur Phencyclidine Scrn Negative (NEGATIVE) 04/11/18 10:00 Ur Amphetamines Screen Negative (NEGATIVE) 04/11/18 10:00 U Benzodiazepines Scrn Negative (NEGATIVE) 04/11/18 10:00 U Oth Cocaine Metabols Positive (NEGATIVE) H 04/11/18 10:00 U Cannabinoids Screen Negative (NEGATIVE) 04/11/18 10:00 Alcohol, Quantitative < 10 mg/dL (0-10) 04/11/18 03:05 Hepatitis A IgM Ab Negative (NEGATIVE) 04/11/18 03:05 Hep Bs Antigen Negative (NEGATIVE) 04/11/18 03:05 Hep B Core IgM Ab Negative (NEGATIVE) 04/11/18 03:05 Hepatitis C Antibody Reactive (NEGATIVE) 04/11/18 03:05 - Hospital Course Hospital Course: Emre Bass DO, PGY-1 Hospitalist Discharge Summary for Dr. Page Mr. Rivera is a 43 year old male with PMH of Bipolar I disorder, DVT of L leg s/p thrombectomy 4 y ago, cocaine and tobacco abuse, and Hepatitis C untreated, who presented to the ED with c/o intermittent R-sided sharp/crampy abdominal pain for the past 3 days. He is s/p cholecystectomy with biliary stent placement in Feb [address] Mcmanus and Dr. Chun for acute necrotizing cholecystitis. He was recently seen in the ED in Mar 2017 with similar chief complaint, was told to f/u with his surgeon as outpatient, and as per pt, was instructed to return to the ED if the pain worsened. He was admitted for management of abdominal pain. He was scheduled for ERCP today to check the biliary stent today. However, patient became upset that he was required to be NPO and signed out against medical advice. All appropriate paperwork was completed. Patient was encouraged to f/u with Dr. Mcmanus and Dr. Chun on an outpatient basis. Patient seen, examined, and discharge plan discussed with my attending Dr. Kaylee Bass D.O. IM Resident PGY-1 Discharge Exam - Head Exam Head Exam: ATRAUMATIC, NORMAL INSPECTION, NORMOCEPHALIC - Eye Exam Eye Exam: EOMI, PERRL - ENT Exam ENT Exam: Mucous Membranes Moist - Neck Exam Neck exam: Full Rom - Respiratory Exam Respiratory Exam: Clear to PA & Lateral, UNREMARKABLE. absent: Rales, Rhonchi, Wheezes - Cardiovascular Exam Cardiovascular Exam: REGULAR RHYTHM, RRR, +S1, +S2. absent: Diastolic murmur, Gallop, Rubs, Systolic Murmur - GI/Abdominal Exam GI & Abdominal Exam: Normal Bowel Sounds, Soft, Tenderness (RUQ). absent: Organomegaly - Extremities Exam Extremities exam: full ROM, normal inspection - Back Exam Back exam: NORMAL INSPECTION - Neurological Exam Neurological exam: Alert, Oriented x3 - Psychiatric Exam Psychiatric exam: Normal Affect, Normal Mood - Skin Skin Exam: Dry, Intact, Warm Discharge Plan - Follow Up Plan Condition: FAIR Disposition: AGAINST MEDICAL ADVICE Instructions: Abdominal Pain (ED) Additional Instructions: Plan of care discussed with patient. He fully understood goals and plan of care. However, he would like to leave against medical advice despite acknowledging the risks involved with leaving against medical advice. He states he will arrange for an outpatient appointment with GI, Dr. Chun regarding ERCP procedure. He, additionally, was able to obtain outside food and planned to eat it prior to his scheduled procedure. He was educated what the risks are in undergoing a procedure without proper etiquette (NPO). He fully understood his options, and understood why he was admitted and the treatments he is receiveing, however he would still like to leave home against medical advice. He states he will follow up with his PMD, GI, and Surgery team on an outpatient basis. Referrals: Adam Heart MD [Primary Care Provider] - <Jonathan Page - Last Filed: 04/11/18 18:59> Provider - Provider Date of Admission: 04/11/18 00:34 Attending physician: Jonathan Page MD Primary care physician: Adam Heart MD Consults: 04/11/18 02:16 Gastroenterology Consult Routine Comment: Consulting Provider: Cj Chun V Consulting Physician: Cj Chun V Reason for Consult: abd pain, hx biliary stent in Feb 2018, Hep C untx 04/11/18 11:01 Physician Consult Routine Comment: Consulting Provider: Sea Mcmanus Consulting Physician: Sea Mcmanus Reason for Consult: abd pain s/p [facility] Course - Lab Results Lab Results: Most Recent Lab Values WBC 5.9 10^3/uL (4.5-11.0) D 04/11/18 12:55 RBC 4.72 10^6/uL (3.5-6.1) 04/11/18 12:55 Hgb 13.6 g/dL (14.0-18.0) L 04/11/18 12:55 Hct 40.8 % (42.0-52.0) L 04/11/18 12:55 MCV 86.4 fl (80.0-105.0) 04/11/18 12:55 MCH 28.8 pg (25.0-35.0) 04/11/18 12:55 MCHC 33.3 g/dl (31.0-37.0) 04/11/18 12:55 RDW 13.2 % (11.5-14.5) 04/11/18 12:55 Plt Count 173 10^3/uL (120.0-450.0) 04/11/18 12:55 MPV 9.5 fl (7.0-11.0) 04/11/18 12:55 Neut % (Auto) 60.3 % (50.0-68.0) 04/11/18 12:55 Lymph % (Auto) 26.0 % (22.0-35.0) 04/11/18 12:55 [place] % (Auto) 8.9 % (1.0-6.0) H 04/11/18 12:55 Eos % (Auto) 4.6 % (1.5-5.0) 04/11/18 12:55 Baso % (Auto) 0.2 % (0.0-3.0) 04/11/18 12:55 Lymph # (Auto) 1.5 (1.2-3.4) 04/11/18 12:55 [place] # (Auto) 0.5 (0.1-0.6) 04/11/18 12:55 Eos # (Auto) 0.3 (0.0-0.7) 04/11/18 12:55 Baso # (Auto) 0.01 K/mm3 (0.0-2.0) 04/11/18 12:55 Absolute Neuts (auto) 3.58 (1.4-6.5) 04/11/18 12:55 PT 13.0 SECONDS (9.4-12.5) H 04/10/18 23:54 INR 1.17 04/10/18 23:54 APTT 38.4 Seconds (26.9-38.3) H 04/10/18 23:54 Sodium 139 mmol/L (132-148) 04/11/18 12:55 Potassium 3.8 mmol/L (3.6-5.0) 04/11/18 12:55 Chloride 105 mmol/L (98-107) 04/11/18 12:55 Carbon Dioxide 28 mmol/L (21-33) 04/11/18 12:55 Anion Gap 9 (10-20) L 04/11/18 12:55 BUN 11 mg/dL (7-21) 04/11/18 12:55 Creatinine 0.8 mg/dl (0.8-1.5) 04/11/18 12:55 Est GFR ( Amer) > 60 04/11/18 12:55 Est GFR (Non-Af Amer) > 60 04/11/18 12:55 Random Glucose 98 mg/dL (70-110) 04/11/18 12:55 Hemoglobin A1c 5.3 % (4.2-6.5) 04/11/18 03:05 Calcium 9.1 mg/dL (8.4-10.5) 04/11/18 12:55 Phosphorus 4.4 mg/dL (2.5-4.5) 04/11/18 03:05 Magnesium 2.1 mg/dL (1.7-2.2) 04/11/18 03:05 Total Bilirubin 0.8 mg/dL (0.2-1.3) 04/11/18 12:55 GGT 49 U/L (8-78) 04/11/18 03:05 AST 96 U/L (17-59) H 04/11/18 12:55 ALT 130 U/L (7-56) H 04/11/18 12:55 Alkaline Phosphatase 102 U/L (38-126) 04/11/18 12:55 Lactate Dehydrogenase 552 U/L (333-699) 04/10/18 23:54 Total Protein 7.4 g/dL (5.8-8.3) 04/11/18 12:55 Albumin 3.8 g/dL (3.0-4.8) 04/11/18 12:55 Globulin 3.6 gm/dL 04/11/18 12:55 Albumin/Globulin Ratio 1.1 (1.1-1.8) 04/11/18 12:55 Triglycerides 113 mg/dL (35-160) 04/11/18 03:05 Cholesterol 124 mg/dL (130-200) L 04/11/18 03:05 LDL Cholesterol Direct 50 mg/dL (0-129) 04/11/18 03:05 HDL Cholesterol 42 mg/dL (29-60) 04/11/18 03:05 Lipase 187 U/L (23-300) 04/10/18 23:54 Urine Color Yellow (YELLOW) 04/11/18 10:00 Urine Appearance Clear (CLEAR) 04/11/18 10:00 Urine pH 6.5 (4.7-8.0) 04/11/18 10:00 Ur Specific [place] 1.025 (1.005-1.035) 04/11/18 10:00 Urine Protein Negative mg/dL (<30 mg/dL) 04/11/18 10:00 Urine Glucose (UA) Negative mg/dL (NEGATIVE) 04/11/18 10:00 Urine Ketones Negative mg/dL (NEGATIVE) 04/11/18 10:00 Urine Blood Negative (NEGATIVE) 04/11/18 10:00 Urine Nitrate Negative (NEGATIVE) 04/11/18 10:00 Urine Bilirubin Negative (NEGATIVE) 04/11/18 10:00 Urine Urobilinogen 0.2 E.U./dL (<1 E.U./dL) 04/11/18 10:00 Ur Leukocyte Esterase Negative Trista/uL (NEGATIVE) 04/11/18 10:00 Urine Opiates Screen Positive (NEGATIVE) H 04/11/18 10:00 Urine Methadone Screen Positive (NEGATIVE) H 04/11/18 10:00 Ur Barbiturates Screen Negative (NEGATIVE) 04/11/18 10:00 Ur Phencyclidine Scrn Negative (NEGATIVE) 04/11/18 10:00 Ur Amphetamines Screen Negative (NEGATIVE) 04/11/18 10:00 U Benzodiazepines Scrn Negative (NEGATIVE) 04/11/18 10:00 U Oth Cocaine Metabols Positive (NEGATIVE) H 04/11/18 10:00 U Cannabinoids Screen Negative (NEGATIVE) 04/11/18 10:00 Alcohol, Quantitative < 10 mg/dL (0-10) 04/11/18 03:05 Hepatitis A IgM Ab Negative (NEGATIVE) 04/11/18 03:05 Hep Bs Antigen Negative (NEGATIVE) 04/11/18 03:05 Hep B Core IgM Ab Negative (NEGATIVE) 04/11/18 03:05 Hepatitis C Antibody Reactive (NEGATIVE) 04/11/18 03:05 Attending/Attestation - Attestation I have personally seen and examined this patient.: Yes I have fully participated in the care of the patient.: Yes I have reviewed all pertinent clinical information, including history, physical exam and plan: Yes Notes (Text): 04/11/18 18:59 Pt signed out [place]
== END 2018-04-11 16:58 | disposition left against medical advice (07) ==
LOC: ED 23:03 → ERH 04-11 00:34 → 3RNO 04-11 01:39
PROVIDERS: ADMIT Internal Medicine; ATTEND Hospitalist
DX: R10.11 Right upper quadrant pain (principal); B19.20 Unspecified viral hepatitis C without hepatic coma; F31.9 Bipolar disorder, unspecified; F17.210 Nicotine dependence, cigarettes, uncomplicated; F11.90 Opioid use, unspecified, uncomplicated; F14.10 Cocaine abuse, uncomplicated; Z86.718 Personal history of other venous thrombosis and embolism; Z88.6 Allergy status to analgesic agent
CPT/HCPCS: 36415; 74176; 80053; 80061; 80074; 80320; 80324; 80345; 80346; 80349; 80353; 80358; 80361; 81003; 82977; 83036; 83615; 83690; 83735; 83992; 84100; 85025; 85610; 85730; 87389; 96372; 96374; 96375; 99284; C9113; G0378; J1644; J2405; J7030; Q9967

== ENCOUNTER 2018-06-30 13:08 | Emergency (ER) | payer OTHER ==
[2018-06-30 13:30] VITALS: BMI 31.6
[2018-06-30 13:34] VITALS: RESP 18; TEMP 98.3
[2018-06-30 14:22] LABS: BASO # 0.02 {null, K/mm3} (0.0-2.0); BASO % 0.4 % (0.0-3.0); EOS # 0.1 (0.0-0.7); EOS % 1.5 % (1.5-5.0); HEMOGLOBIN 13.5 g/dL (14.0-18.0); LYMPH # 1.1 (1.2-3.4); LYMPH % 19.9 % (22.0-35.0); MEAN CELL VOLUME 85.5 fl (80.0-105.0); MEAN CORPUSCULAR HEMOGLOBIN 28.4 pg (25.0-35.0); MEAN CORPUSCULAR HGB CONC 33.3 g/dl (31.0-37.0); MEAN PLATELET VOLUME 10.1 fl (7.0-11.0); MONO # 0.4 (0.1-0.6); MONO % 7.8 % (1.0-6.0); RBC 4.75 {null, 10^6/uL} (3.5-6.1); WHITE BLOOD COUNT 5.5 {null, 10^3/uL} (4.5-11.0)
[2018-06-30 14:34] LABS: ALBUMIN 3.8 g/dL (3.0-4.8); ALT/SGPT 93 U/L (7-56); AST/SGOT 71 U/L (17-59); BLOOD UREA NITROGEN 10 mg/dL (7-21); GFR NON-AFRICAN AMERICAN > 60; LIPASE 265 U/L (23-300)
--- NOTE | 2018-06-30 14:34 | ED PDOC ---
Arrival/HPI - History of Present Illness Narrative History of Present Illness (Text): 06/30/18 14:27 Patient is a 43 year old male with past medical history of DVT of LLE s/p thrombectomy, hepatitis C, cocaine and tobacco abuse, bipolar disorder presenting with chief complaint of right sided cramping abdominal pain for the past three days. Patient is s/p recent cholecystectomy with biliary stent placement in Feb 2018 for acute necrotizing cholecystitis. Admits to night sweats, nausea, and worsening of symptoms with ingestion of fatty foods and dairy. He states he is due for removal of biliary stent. Denies chest pain, shortness of breath, diarrhea, dysuria. Patient also complains of acute decreased hearing from the left ear over the past week. Denies any trauma, blood or other drainage of the ear. Patient uses qtips frequently in his inner ear. Time/Duration: < week Symptom Onset: Sudden Symptom Course: Unchanged Quality: Cramping <Dashawn Dillon L - Last Filed: 06/30/18 17:10> <Reji Lewis L - Last Filed: 06/30/18 18:45> - General Chief Complaint: Abdominal Pain Time Seen by Provider: 06/30/18 13:12 Past Medical History - Provider Review Nursing Documentation Reviewed: Yes - Cardiac Hx Cardiac Disorders: Yes Hx Hypertension: No - Pulmonary Hx Tuberculosis: No - Neurological Hx Seizures: No - HEENT Hx HEENT Disorder: No - Renal Hx Renal Disorder: No - Endocrine/Metabolic Hx Endocrine Disorders: No - Hematological/Oncological Hx Cancer: No - Integumentary Hx Dermatological Disorder: No - Musculoskeletal/Rheumatological Hx Falls: No - Gastrointestinal Other/Comment: Abdominal pain, vomit, constipation - Genitourinary/Gynecological Hx Sexually Transmitted Diseases: No - Psychiatric Hx Bipolar Disorder: Yes Hx Depression: Yes Hx Substance Use: Yes (opioids) - Surgical History Hx Cholecystectomy: Yes Other/Comment: 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 ago - Anesthesia Hx Anesthesia: Yes Hx Anesthesia Reactions: No Hx Malignant Hyperthermia: No <Dashawn Dillon - Last Filed: 06/30/18 17:10> Family/Social History - Physician Review Nursing Documentation Reviewed: Yes Family/Social History: No Known Family HX Smoking Status: Heavy Smoker > 10 Cigarettes Daily Hx Alcohol Use: No Hx Substance Use: Yes (opioids) Substance used: heroin <Dillon,Agape L - Last Filed: 06/30/18 17:10> Allergies/Home Meds <Dashawn Dillon L - Last Filed: 06/30/18 17:10> <AdarshbennyReji L - Last Filed: 06/30/18 18:45> Allergies/Adverse Reactions: Allergies aspirin Allergy (Verified 06/30/18 13:34) RASH egg Allergy (Verified 06/30/18 13:34) RASH peanut Allergy (Verified 06/30/18 13:34) RASH Review of Systems - Physician Review All systems were reviewed & negative as marked: Yes - Review of Systems Respiratory: Normal Cardiovascular: Normal Gastrointestinal: Abdominal Pain, Nausea. absent: Diarrhea, Vomiting Genitourinary Male: Normal <Dashawn Dillon L - Last Filed: 06/30/18 17:10> Physical Exam Vital Signs Reviewed: Yes Vital Signs Temp Pulse Resp BP Pulse Ox 06/30/18 13:30 98.3 F 61 18 143/80 97 Temperature: Afebrile Blood Pressure: Normal Pulse: Regular Respiratory Rate: Normal Appearance: Positive for: Well-Appearing, Comfortable Pain Distress: None Mental Status: Positive for: Alert and Oriented X 3 - Systems Exam Head: Present: Atraumatic, Normocephalic Pupils: Present: PERRL Extroacular Muscles: Present: EOMI Conjunctiva: Present: Normal Ears: Present: Other (cerumen ) Mouth: Present: Moist Mucous Membranes Respiratory/Chest: Present: Clear to Auscultation, Good Air Exchange. No: Respiratory Distress, Accessory Muscle Use Cardiovascular: Present: Regular Rate and Rhythm, Normal S1, S2. No: Murmurs Abdomen: Present: Normal Bowel Sounds, Guarding. No: Distention, Peritoneal Signs, Rebound Lower Extremity: Present: Normal Inspection. No: Edema Neurological: Present: GCS=15, CN II-XII Intact, Speech Normal Skin: Present: Warm, Dry, Normal Color Psychiatric: Present: Alert, Oriented x 3 <Dashawn Dillon L - Last Filed: 06/30/18 17:10> Vital Signs Temp Pulse Resp BP Pulse Ox 06/30/18 13:30 98.3 F 61 18 143/80 97 <DebbieReji L - Last Filed: 06/30/18 18:45> Medical Decision Making ED Course and Treatment: 06/30/18 14:35 Impression: 43 year old male with abdominal pain and decreased hearing in left ear Plan: - CBC, CMP - lipase - abdominal ultrasound - Toradol - Reassess and disposition Prior Visits: Notes and results from previous visits were reviewed. Progress Notes: 06/30/18 14:36 Removal of cerumen from left ear performed. Patient tolerated procedure with no complications. 06/30/18 16:38 Patient requests to be discharged. Benefits and risks discussed w ith patient. Patient currently hemodynamically stable and optimized for discharge to followup with primary medical doctor and yield loss inspector. Patient in agreement with plan of management. - RAD Interpretation Radiology Orders: 06/30/18 13:51 GALLBLADDER & PANCREAS [US] Stat - Medication Orders Current Medication Orders: Discontinued Medications Ketorolac Tromethamine (Toradol) 30 mg IVP STAT STA Stop: 06/30/18 13:54 Last Admin: 06/30/18 14:11 Dose: 30 mg MAR Pain Assessment Document 06/30/18 14:11 GMD (Rec: 06/30/18 14:11 GMD [id number]) Pain Reassessment Is this a pain reassessment? No IVP Administration Document 06/30/18 14:11 GMD (Rec: 06/30/18 14:11 GMD [id number]) Charges for Administration # of IVP Administrations 1 <Dashawn Dillon - Last Filed: 06/30/18 17:10> ED Course and Treatment: 06/30/18 14:45 Patient Seen with Resident: In agreement with resident note which contains more details about the patient. Patient seen and evaluated with resident. Came up with plan and treatment together. 06/30/18 16:38 Patient is feeling better and wants to go home. There was concern that he may have left the ED but he was found walking through the ED. Abdomen was soft and NT. Tolerating PO fluids. Appears well. He will mkae sure to f/u with Dr. Lay STEARNS to set up for stent removal. He will return to the ED if symptoms worsen or any other concern. - Lab Interpretations Lab Results: Total Bilirubin 0.4 mg/dL (0.2-1.3) 06/30/18 14:00 AST 71 U/L (17-59) H D 06/30/18 14:00 ALT 93 U/L (7-56) H 06/30/18 14:00 Alkaline Phosphatase 84 U/L (38-126) 06/30/18 14:00 Total Protein 7.6 g/dL (5.8-8.3) 06/30/18 14:00 Albumin 3.8 g/dL (3.0-4.8) 06/30/18 14:00 Globulin 3.7 gm/dL 06/30/18 14:00 Albumin/Globulin Ratio 1.0 (1.1-1.8) L 06/30/18 14:00 Lipase 265 U/L (23-300) 06/30/18 14:00 - RAD Interpretation Radiology Orders: 06/30/18 13:51 GALLBLADDER & PANCREAS [US] Stat - Medication Orders Current Medication Orders: Discontinued Medications Ketorolac Tromethamine (Toradol) 30 mg IVP STAT STA Stop: 06/30/18 13:54 Last Admin: 06/30/18 14:11 Dose: 30 mg MAR Pain Assessment Document 06/30/18 14:11 GMD (Rec: 06/30/18 14:11 GMD [id number]) Pain Reassessment Is this a pain reassessment? No IVP Administration Document 06/30/18 14:11 GMD (Rec: 06/30/18 14:11 GMD [id number]) Charges for Administration # of IVP Administrations 1 <Reji Lewis L - Last Filed: 06/30/18 18:45> - PA / TRUSS ASSEMBLER / Resident Statement / has reviewed & agrees with the documentation as recorded. / has examined the patient and agrees with the treatment plan. <Reji Lewis L - Last Filed: 06/30/18 18:45> Disposition/Present on Arrival - Present on Arrival Any Indicators Present on Arrival: No History of DVT/PE: No History of Uncontrolled Diabetes: No Urinary Catheter: No History of Decub. Ulcer: No History Surgical Site Infection Following: None - Disposition Have Diagnosis and Disposition been Completed?: Yes Disposition Time: 16:50 <Dashawn Dillon L - Last Filed: 06/30/18 17:10> <Reji Lewis L - Last Filed: 06/30/18 18:45> - Disposition Diagnosis: Abdominal pain, Impacted ear wax Disposition: HOME/ ROUTINE Condition: STABLE Discharge Instructions (ExitCare): Acute Abdomen (Belly Pain) Additional Instructions: JACINDA BAEZ, thank you for letting us take care of you today. Your provider was Reji Lewis DO and you were treated for Abdominal Pain, Ear Disimpaction. The emergency medical care you received today was directed at your acute symptoms. If you were prescribed any medication, please fill it and take as directed. It may take several days for your symptoms to resolve. Return to the Emergency Department if your symptoms worsen, do not improve, or if you have any other problems. Please contact your doctor or call one of the physicians/clinics you have been referred to that are listed on the Patient Visit Information form that is included in your discharge packet. Bring any paperwork you were given at discharge with you along with any medications you are taking to your follow up visit. Our treatment cannot replace ongoing medical care by a primary care provider outside of the emergency department. Thank you for allowing the [facility] team to be part of your care today. If you had an X-Ray or CT scan: A Radiologist will review the ED reading if any change in treatment is needed we will contact you. If you had a blood, urine, or wound culture: It will take several days for the results, if any change in treatment is needed we will contact you. If you had an STI test: It will take 48 hours for the results. Please call after 1 week if you have not heard back. Prescriptions: Ranitidine HCl [Zantac] 150 mg PO BID PRN #30 tablet PRN Reason: Pain, Mild (1-3) Referrals: Adam Heart MD [Family Provider] - Follow up with primary Cj Chun MD [Medical Doctor] - Follow up with primary Forms: [employer] (Mexican), WORK NOTE
--- NOTE | 2018-06-30 15:31 | US ---
Date of service: 06/30/2018 HISTORY: abd pain COMPARISON: None. TECHNIQUE: Sonographic evaluation of the right upper quadrant of the abdomen. FINDINGS: LIVER: Measures 19.3 cm in length. Normal echogenicity of the liver parenchyma. No mass. No intrahepatic bile duct dilatation. GALLBLADDER: Status post cholecystectomy COMMON BILE DUCT: Measures 11 mm. Biliary stent noted in place PANCREAS: Unremarkable as visualized. No mass. No ductal dilatation. RIGHT KIDNEY: Measures 12.7 cm in length. Normal echogenicity. No calculus, mass, or hydronephrosis. AORTA: No aneurysmal dilatation. IVC: Unremarkable. OTHER FINDINGS: None . IMPRESSION: Biliary stent. Status post cholecystectomy. Mild hepatomegaly.
[2018-06-30 16:50] VITALS: BP 128/72; PULSE 64; O2SAT 99
== END 2018-06-30 16:50 | disposition home or self-care (01) ==
LOC: ED 13:08
DX: R10.9 Unspecified abdominal pain (principal); H61.22 Impacted cerumen, left ear; Z90.49 Acquired absence of other specified parts of digestive tract
CPT/HCPCS: 76705; 80053; 83690; 85025; 96374; 99283; J1885